=== PATIENT | male | born 1940 | race Asian ===

== ENCOUNTER 2023-12-09 05:31 | Emergency (ER) | payer OTHER, SELFPAY ==
[2023-12-09 05:33] VITALS: BP 158/75
[2023-12-09] MEDS: TYLENOL 650 MG PO (06:20)
--- NOTE | 2023-12-09 06:24 | ED.MUSCINJ ---
HPI-Injury
General
Chief Complaint: Fall
Source: patient and spouse
Exam Limitations: none
Time Seen by Provider: 12/09/23 06:03
Nursing documentation reviewed up to this point in time: agreed with
History of Present Illness-Injury
Is this injury a work related problem?: No
Is pt an associate of [facility]?: No
Initial Injury comments:
83-year-old male hypertensive diabetic slip and fall while walking looking into the sun did not see where his feet were going occurred about 48 or 72 hours ago while in [place] for a wedding
Slipped struck his right hip on the ground failed to walk on it with pain, no head trauma no head strike no neck pain no chest pain or shortness of breath
Past History
Past History
ED Past Medical History: CAD, GERD, HTN and NIDDM
ED Past Surgical History: Cardiac, Orthopedic and Other (Thyroidectomy)
Social History
Tobacco: Non-smoker
Alcohol: None
Drug: None
Personal:
Living: with family
Employment: Retired
Review of Systems
Review of Systems
All Other Systems: Not applicable
Constitutional: Denies fever or fatigue
EENT: Reports no symptoms
Respiratory: Reports no symptoms
Cardiac: Reports no symptoms
ABD/GI: Reports no symptoms
: Reports no symptoms
Musculoskeletal: Reports joint pain
Neurological: Reports no symptoms
Phy Exam
Physical Exam
Physical Exam:
Physical Exam
General: Nontoxic elderly
Neck: No tongue bite no posterior neck
Heart: s1/s2 regular rate and rhythm, no murmur. equal radial pulses.
Lungs: no acute respiratory distress. clear bilaterally
Abdomen: Nontender
Neuro: alert and oriented. no focal neurological deficits
Skin: no rash
Psychiatric: well kept. interactive and cooperative
Extremities: Right lower extremity not shortened or rotated does have pain with flexion and external rotation is contusion/bruising right upper lateral thigh
Injury Course
Orders/Labs/Results
Orders:
Orders
12/09/23 05:57
Hip, Right 2-3 Views [CR Hip - RT w/wo Pel 2-3 Vw*] Urgent
Comment:
Reason For Exam: fall
Include a pelvis x-ray?: Yes
12/09/23 06:16
Acetaminophen [Tylenol] 650 mg PO NOW STA
12/09/23 07:26
Physical Therapy Consult [Pt Eval And Treat] Urgent
Activity Level: Out of Bed-Early Mobility
MDM/Problems Addressed
Differential Diagnosis Includes:
Contusion hip fracture pelvic fracture
MDM/Problems Addressed:
Fall hip pain
Chronic conditions affecting care: DM and HTN
Acute Exacerbation and/or Progression of Chronic Illness: DM and HTN
*Radiology
Radiology exam reviewed: preliminary read by ED provider
*Pulse Oximetry
Patient hypoxic: no
*Critical Care Note
Total Time (30-74mins, 75-104mins- exclusive of procedures): Not Applicable
Update Note
Update Note:
Update, x-ray noted formal report pending drug allergies intolerances noted
Patient appears comfortable after Tylenol will ask PT to evaluate him
ED Attending Note
-
Portions of this chart may have been created with voice recognition software.� Occasional wrong word or��sound alike� substitutions may have occurred due to the inherent limitations of voice recognition software.
Discharge Plan
Departure
Patient Disposition: Home (Routine Discharge)
Date of Disposition: 12/09/23
Time of Disposition: 09:01
Patient with high blood pressure during this ER visit?: No
Condition: Good
Discharge Problem:
Contusion of hip region
Instructions: Contusion (DC), Preventing falls in adults
Prescriptions:
No Action
atorvastatin 40 mg Tablet
40 mg PO DAILY
levothyroxine 175 mcg Tablet
175 mcg PO DAILY
ascorbic acid (vitamin C) [Vitamin C] 1,000 mg Tablet
1 g PO DAILY
metoprolol tartrate 100 mg Tablet
100 mg PO BID
clopidogrel 75 mg Tablet
75 mg PO DAILY
amlodipine 10 mg Tablet
10 mg PO QPM
folic acid 1 mg Tablet
1 mg PO BID
losartan 100 mg Tablet
100 mg PO QPM
metformin 500 mg Tablet Extended Release 24 Hr
500 mg PO DAILY
iron 40 mg Capsule
65 mg PO DAILY
omega-3 fatty acids Capsule
2,000 mg PO BID
metformin 500 mg Tablet Extended Release 24hr
1,000 mg PO QPM
Januvia 100 mg Tablet
100 mg PO QPM
Ozempic 0.25 mg or 0.5 mg(2 mg/1.5 mL) Pen Injector
0.25 mg SC QWEEK
Patient Comments:
Patient has not started medication
Vitamin B-12
1 g PO QPM
nitroglycerin 0.4 mg tablet, sublingual
0.4 mg sublingual [id number] PRN (Reason: chest pain) Qty: 25 2RF
aspirin 81 mg Tablet,Chewable
81 mg PO DAILY Qty: 30 0RF
Referrals:
Hector Ivy MD [Family Provider] - Next open appointment
Hudson Smith MD [Active] - Next open appointment
Activity Restrictions/Additional Instructions:
Rest, ice, Tylenol every 4-6 hours
Use a walker
Interventions
Interventions:
*Risk Screen - Suicide Last Done: 12/09/23 05:39
*General Assessment Last Done: 12/09/23 05:40
*Neglect/Abuse Screening Last Done: 12/09/23 05:40
ED- Fall Risk Assessment Last Done: 12/09/23 05:39
*ED COVID-19 Vaccine History Last Done: 12/09/23 05:39
ED-Musculoskeletal Assessment Last Done: 12/09/23 06:56
ED- Neurological Assessment Last Done: 12/09/23 06:56
ED-Skin Assessment Last Done: 12/09/23 06:56
Discharge Date and Time
Print Language: MALAWIAN
[2023-12-09 09:25] VITALS: BP 117/68
== END 2023-12-09 09:29 | disposition home or self-care (01) ==
LOC: EMR 05:31
PROVIDERS: EMERGENCY PHYSICIAN Emergency Medicine; FAMILY PHYSICIAN Family Medicine
DX: S70.01XA Contusion of right hip, initial encounter (principal); W01.0XXA Fall on same level from slipping, tripping and stumbling without subsequent striking against object, initial encounter; I25.10 Atherosclerotic heart disease of native coronary artery without angina pectoris; K21.9 Gastro-esophageal reflux disease without esophagitis; I10 Essential (primary) hypertension; E11.9 Type 2 diabetes mellitus without complications
CPT/HCPCS: 99283; 73502

== ENCOUNTER 2024-12-09 04:35 | Inpatient (IN) | payer OTHER, SELFPAY ==
[2024-12-09] VITALS (11 sets, daily range): BP systolic 127–164; BP diastolic 64–88; PULSE 144; O2SAT 96; BMI 23.0; BMI 25.9
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
[2024-12-09 02:44] LABS: Hematocrit 35.8 % (39.0-52.0); Hemoglobin 12.7 g/dL (13.0-18.0); Mean Corp Hgb Conc. 35.5 g/dL (33.0-37.0); Mean Corpuscular Volume 82.5 fL (80.0-94.0); Platelet Count 155 10^3/uL (130-400); Red Cell Dist. Width 13.9 % (11.5-14.5)
[2024-12-09 02:51] LABS: INR 0.95; PT 12.9 Sec (11.4-14.6)
[2024-12-09 02:52] LABS: APTT 29.1 Sec (23.4-35.0)
[2024-12-09 03:11] LABS: Troponin I < 0.012 ng/ml
[2024-12-09 03:13] LABS: ALT (SGPT) 19 U/L (0-50); AST (SGOT) 30 U/L (17-59); Albumin 4.9 g/dl (3.5-5.0); Alkaline Phosphatase 65 U/L (38-126); Blood Urea Nitrogen 20 mg/dl (9-20); Calcium 9.4 mg/dl (8.4-10.2); Carbon Dioxide 19 mmol/L (22-30); Chloride 100 mmol/L (98-107); Estimated Creatinine Clearance 70 ml/min; Glucose 207 mg/dl (70-99); Potassium 5.0 mmol/L (3.5-5.1); Sodium 134 mmol/L (135-145); Total Protein 8.8 g/dl (6.3-8.2); eGFR > 60.00
[2024-12-09 03:27] LABS: Urine Character Clear (Clear)
[2024-12-09 03:39] LABS: Absolute Neutrophils -Man Diff 22.4 10^3/uL (1.4-6.5); Normal RBC Morphology Yes; Platelets Checked Yes; Total Cells Counted 100
[2024-12-09 03:47] LABS: Urine Squamous Cell >30 /LPF (Few)
--- NOTE | 2024-12-09 04:10 | HPS.HSE ---
Family Physician
-
Family Physician: Hector Ivy
Chief Complaint
-
Weakness
History of Present Illness
This is a 84-year-old male with past medical history significant for CAD status post stents x 6 with LAD stent placed about 3 years ago, biy-vvgcglp-yngenvdcu diabetes, hypothyroid, hypertension presenting to the emergency department with right
sided weakness.
Spouse reported that she began noticing right-sided foot dragging at the gathering on Sunday 3 days ago. The patient had an episode of voluminous diarrhea x 3 on Sunday night into Sunday morning. He has not had additional diarrheal episodes
since. He had 1 episode of vomiting on that Sunday morning but no water episodes of vomiting. Patient denies any headache, blurry vision, double vision lightheadedness or dizziness. Denies any fevers or chills. Denies any urinary symptoms. The
foot dragging continued throughout the day and days of 5 multiple stumbles and almost fell with his spouse trying to hold him to keep him from falling. After multiple episodes this she had to call EMS and bring him to the emergency department.
Patient is on ezetimibe due to spouse concerned about side effects of statin. It appears that several months ago his tax clerk wanted to change the ezetimibe to a different medication but is unclear what this changes possibly likely statin.
In the emergency department he was afebrile, blood pressure was 160/73 with a pulse of 86 satting 98% on room air. His UA is negative. ECG shows a normal sinus rhythm at rate of 83. CT of the head was unremarkable. CT angio shows no large vessel
occlusion dissection aneurysm or bleed.
CBC notable for a white count of 26 but otherwise unremarkable 7% bands. Electrolytes BUN and creatinine were in the normal range.
Medical History
Past Medical History
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
Past Surgical History: Reports Other (Cardiac, Orthopedic and Other (Thyroidectomy))
Social History
Unable to obtain full social history at this time due to: Dementia
Family History
Family History: Not pertinent
Allergies / Home Medications
Allergies reflects when Allergies were last updated in [employer].
Home Medications with original date entered in [employer]
Allergy/Medication List:
Allergies
Allergy/AdvReac Type Severity Reaction Status Date / Time
abciximab Allergy problems Verified 12/09/24 02:49
with blood
levels
hydralazine Allergy Unknown Verified 12/09/24 02:49
morphine Allergy OD at Verified 12/09/24 02:49
level dose
per patient
oxycodone (From Percocet) Allergy Migranes Verified 12/09/24 02:49
Home Medications
Vitamin B-12 5 g PO QPM Supplement 11/11/21
amlodipine 10 mg tablet 10 mg PO QPM Blood pressure 11/11/21
ascorbic acid (vitamin C) 1,000 mg tablet (Vitamin C) 1 g PO DAILY Supplement 11/11/21
clopidogrel 75 mg tablet 75 mg PO DAILY Blood clot prevention/tx 11/11/21
folic acid 1 mg tablet 1 mg PO BID Supplement 11/11/21
losartan 100 mg tablet 100 mg PO QPM Blood pressure 11/11/21
metformin 500 mg tablet,extended release 24 hr 500 mg PO DAILY Diabetes 11/11/21
metformin 500 mg tablet,extended release 24hr (osmotic) 1,000 mg PO QPM Diabetes 11/11/21
metoprolol tartrate 100 mg tablet 100 mg PO DAILY Blood pressure 11/11/21
nitroglycerin 0.4 mg sublingual tablet 0.4 mg sublingual [id number] PRN chest pain #25 tabs 11/11/21
aspirin 81 mg chewable tablet 81 mg PO DAILY #30 tabs 11/15/21
cholecalciferol (vitamin D3) 125 mcg (5,000 unit) tablet (Vitamin D3) 125 mcg PO DAILY 12/09/24
ezetimibe 10 mg tablet 10 mg PO QPM 12/09/24
ferrous sulfate 325 mg (65 mg iron) tablet (Iron (ferrous sulfate)) 65 mg PO DAILY 12/09/24
levothyroxine 150 mcg tablet 150 mcg PO DAILY 12/09/24
saxagliptin 5 mg tablet 5 mg PO DAILY 12/09/24
Review of Systems
-
Constitutional: Reports No Symptoms
EENT: Reports No Symptoms
Respiratory: Reports No Symptoms
Cardiac: Reports No Symptoms
Abdomen/GI: Reports No Symptoms
: Reports No Symptoms
Musculoskeletal: Reports No Symptoms
Skin: Reports No Symptoms
Neurological: Reports Weakness
Endocrine: Reports No Symptoms
Hematologic/Lymphatic: Reports No Symptoms
Psych: Reports No Symptoms
Physical Exam
Vital Signs
Vital Signs
Temp Pulse Resp BP Pulse Ox
97.9 F 86 20 159/73 98
12/09/24 02:17 12/09/24 02:30 12/09/24 02:30 12/09/24 02:19 12/09/24 02:30
Physical Exam
General: Well Developed, Well Nourished and No Apparent Distress
HEENT: NormoCephalic, Moist mucous membranes and Atraumatic
Respiratory: Clear
Cardiac: S1/S2 and Regular Rhythm; No Murmur or Rub
GI: Soft, Non Tender, Non Distended and Normal Bowel Sounds; No Organomegaly
Rectal: Deferred by Provider
Musculoskeletal: No Clubbing, No Cyanosis and No Edema
Skin: No Rash
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
Laboratory Results
-
12/09/24 02:27
12/09/24 02:27
Laboratory Results
PT 12.9 Sec (11.4-14.6) 12/09/24 02:27
INR 0.95 12/09/24 02:27
APTT 29.1 Sec (23.4-35.0) 12/09/24 02:27
Total Bilirubin 1.0 mg/dl (0.2-1.3) 12/09/24 02:27
AST 30 U/L (17-59) 12/09/24 02:27
ALT 19 U/L (0-50) 12/09/24 02:27
Alkaline Phosphatase 65 U/L (38-126) 12/09/24 02:27
Troponin I < 0.012 ng/ml 12/09/24 02:27
Data Reviewed
-
CT Scan: Report Reviewed by me
Medical Tests (Nuc Med, Echo, EKG etc): Image Personally Visualized and interpreted
Lab Data: Labs Reviewed by me
Old Records: Reviewed
Impression/Plan
-
IMPRESSION:
84-year-old male with past medical history significant for CAD status post tenting, sct-xrogjwo-itrgmuuav diabetes, hypertension, hyperlipidemia, GERD, presenting to the emergency department for with right-sided weakness starting 6 days ago and
concerning for right-sided CVA. Patient woke up in the ED was unremarkable. CT shows no evidence of an acute intracranial process. CTA shows no large vessel occlusion or dissection or stenosis. There is no bleed. Exam reveals persistent right
thumb drift, right leg drift, mild right-sided facial droop with smiling and mild speech slurring.
PLAN:
CVA -likely small CVA affecting the right side and the patient with history of CAD who is currently on aspirin Plavix and visit to me. No known history of atrial fibrillation.
-Admit to telemetry observation
-This is likely a subacute stroke, continue to control blood pressure as per patient's home regimen
-Speech therapy
-Continue dual antiplatelet therapy for now, if MRI confirms stroke, may benefit from starting a statin
-Telemetry to monitor follow-up for possible atrial fibrillation
-Neurochecks
-Neurology consult
-PT, OT, speech
Leukocytosis -reports recent a large-volume diarrhea without fevers chills abdominal pain nausea or vomiting. Hemodynamically stable and labs unremarkable. There is leukocytosis to 26 with 7% bands. No recent antibiotic use
-Suspect leukocytosis is secondary to CML
-Afebrile here, no diarrhea in the ED, monitor for now
- no signs of dehydration, check orthostatics, hold off on IV fluids for now
- repeat wbc as outpatient and f/u with Dr Tyler
DM 2
-Hold metformin
-Sliding scale insulin
-Continue glipizide
Hypertension
-Continue metoprolol and losartan
DVT prophylaxis�Lovenox subcu
CODE STATUS�full code
--- NOTE | 2024-12-09 08:54 | W.PN.HOSP.TC ---
Today's Communication/Plan
-
Follow-up MRI and TTE
Continue DAPT and ezetimibe
Check LDL and A1c
Consider statin
Switch metoprolol to carvedilol
Assessment / Plan
Assessment / Plan
#Right-sided extremity weakness and left facial droop
#Cerebrovascular disease
- Suspect ASCVD driven event within the left Jim-cerebrum/basal ganglia/thalamus with symptoms and Hx
- Concern for subacute CVA, right-sided weakness that started 6 days prior to arrival, also with facial droop
- No indication for TNK or thrombectomy due to timeframe, no indication for aggressive BP goals
- Initial CT scan without any acute findings, CTA showed carotid stenosis and bilateral M1-2 stenosis
- MRI brain without contrast was ordered though yet to be performed
- Remains on home DAPT for his history of CAD, not on statin therapy
- Neurology consulted, appreciated
Plan
- Follow-up MRI brain, TTE
- Consider statin therapy if MRI positive as well with LDL goal <70
- Continue with home DAPT and ezetimibe for now
- Monitor neurochecks and NIHSS, BP goal normotension
- Consider loop recorder if MRI consistent with embolic disease
- Recheck lipid panel and A1c
#Leukocytosis
#CML
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
- Antibiotics deferred on arrival, no obvious infectious findings at this time
- Differential without mention of basophils, would expect these to be elevated
- Will trend CBC and temperature curve off antibiotics for now
#Oropharyngeal dysphagia
- Likely related to recent suspected CVA, evaluated by SALT CUTTER today
- Recommended regular diet however nursing with concerns of aspirating thin liquids
- Video swallow exam ordered for tomorrow, S[facility] CUTTER appreciated
- Aspiration precautions
#CAD s/p PCI x 6
#Dyslipidemia
- Home regimen includes DAPT with aspirin and Plavix, metoprolol tartrate twice daily
- Not currently on statin therapy as last lipid panel with LDL near 39, is on ezetimibe
- Follow-up repeat lipid panel as above, consider starting statin
- No signs of ACS at this time
#NIDDM
- Home regimen includes metformin and saxagliptin
- Was transition to ISS with Accu-Cheks while inpatient
- Follow-up A1c as above, BG goal 140-180 here
#Iatrogenic hypothyroidism
#S/P thyroidectomy
- Home regimen includes levothyroxine 150 mcg daily
- No signs or symptoms of thyroid dysfunction at this time
#Primary hypertension
- Home regimen includes amlodipine, metoprolol tartrate, losartan
- No known history of hypertensive systemic disease, may be associated with possible CVA here
- Will transition from metoprolol to tartrate 100 mg daily to carvedilol 12.5 mg twice daily for better antihypertensive effect
- Continue with remainder of home regimen and monitor vitals
- Blood pressure goal normotension
#GERD
- No known history of Suarez's esophagus or erosive disease
- Not currently on PPI or antihistamine
#Dementia
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
- No signs of agitation, will monitor for now
Diet: Regular
Thromboprophylaxis: SQ Lovenox
CODE STATUS: Full code
Disposition: PT pending
Anticipated Discharge: > 48 hours
Subjective/Interval History
-
Date of Service: December 09, 2024
Seen and examined at the bedside. No acute events reported overnight. AFVSS this morning, SBP near 160
Finished working with physical therapy at time of my assessment, noted to have ataxic RLE.
ROS limited by his dementia though able to participate in exam
Objective Data
-
Labs:
Laboratory Results
12/09/24
02:27
WBC 26.1 H
Hgb 12.7 L
Hct 35.8 L
Plt Count 155
PT 12.9
INR 0.95
APTT 29.1
Sodium 134 L
Potassium 5.0
Chloride 100
Carbon Dioxide 19 L
BUN 20
Creatinine 0.8
Glucose 207 H
Calcium 9.4
Total Bilirubin 1.0
AST 30
ALT 19
Alkaline Phosphatase 65
Vital Signs:
Vital Signs
Temp Pulse Resp BP Pulse Ox
97.3 F 112 16 162/77 98
12/09/24 07:10 12/09/24 07:15 12/09/24 07:15 12/09/24 07:10 12/09/24 07:10
Review of Systems
-
Unable to obtain full review of systems at this time due to: Dementia
Physical Exam
-
General: Well Developed, Well Nourished and Appears Chronically Ill
HEENT: Normocephalic, Atraumatic, Moist Mucous Membranes and Anicteric
Respiratory: Clear to Auscultation and Non Labored Respirations
Cardiac: Regular Rhythm and S1/S2; Negative Murmur, Rub or Gallop
GI: Soft, Nontender, Nondistended and Normal Bowel Sounds
Musculoskeletal: No Clubbing, No Cyanosis and No Edema
Skin: Warm and Dry; Negative Rash
Neuro: Awake, Alert, Oriented and Other (Reduced strength to right sided extremities with right pronator drift, RLE ataxia; lower left facial droop with preserved eyebrow raise and upper facial signs)
Psych: Calm
Data Reviewed
-
Labs: Labs Reviewed by me, Discussed with Physician (neuro) and Discussed with Patient
[2024-12-09 09:06] LABS: Glucose - Point of Care 254 mg/dl (70-99)
--- NOTE | 2024-12-09 09:49 | PTCARENOTE ---
Received pt from ER via stretcher, accompanied by ER staff. Pt awake and alert, oriented to self/birthdate/'hospital' only; occ word slurring. DOWD; Rt side weak; has Rt facial droop. Pt able to stand with assist x2 to transfer to bed;
weak/unsteady; denies dizziness. NIHSS 9- pt has no vision in Lt eye d/t prior injury; h/o dementia. Cooperative but forgetful. VSS. Placed on telemetry:sinus tachy 110's. On room air- pulse ox 98%, no SOB noted. Abd soft, rounded, pt with (+)
coughing with swallow eval; speech notified to see pt. Incont urine, pt instructed to use urinal. Afebrile; skin W/D/I. Pt restless/confused; pulling off telemetry; attempting to climb OOB; to be made 1:1 for safety. Oriented t [address]. Will
continue to monitor.
[2024-12-09] MEDS: FEOSOL 325 MG PO (10:29)
[2024-12-09] MEDS: LOPRESSOR 100 MG PO (10:30)
[2024-12-09] MEDS: SYNTHROID 150 MCG PO (10:30)
[2024-12-09] MEDS: PLAVIX 75 MG PO (10:30)
[2024-12-09] MEDS: LOW STRENGTH ASPIRIN 81 MG PO (10:30)
[2024-12-09] MEDS: VITAMIN D3 (cholecalciferol) 125 MCG PO (10:30)
[2024-12-09] MEDS: VITAMIN C 1000 MG PO (10:30)
[2024-12-09] MEDS: FOLVITE 1 MG PO ×2 (10:30→20:16)
[2024-12-09] MEDS: NOVOLOG FLEXPEN-LOW RESISTANCE 3 UNITS SC ×2 (10:31→17:08)
[2024-12-09] MEDS: MIRALAX PO (10:31)
--- NOTE | 2024-12-09 10:33 | PTOTSP ---
Speech Therapy Evaluation:
Pt presenting w/ TIA/CVA symptoms and PMH of dementia. Bedside swallow evaluation completed due to failed nursing swallow screening upon admission to unit. Coughing observed w/ single and sequential sips from straw. No other overt s/sx of aspiration
observed w/ single cup-sips of thins, puree, or regular solids during P.O. trials. ST to follow-up due to risk factors for dysphagia w/ PMH (dementia, GERD), acute TIA/CVA symptoms, signs of aspiration.
Quick Aphasia Battery (QAB) administered to assess language domains. Pt's score indicates moderate aphasia, with primary deficits in word finding, sentence comprehension, and oral reading. Unsure of pt's baseline language. ST recommended to F/U at
acute setting and next level, of care.
Recommendations:
1. Regulars, Single Cup-Sip Thins
2. Medications crushed/whole w/ puree
3. Partial assistance/full supervision w/ meals
4. Strategies: Single sips/small bites, slow rate, limit distractions, reflux precautions
5. ST to F/U to observe diet level tolerance, determine need for instrumental swallow study, and further treat/assess cognitive-linguistic communication deficits.
6. ST at next-level of care given moderate aphasia characterized by deficits in word finding, reading, and auditory comprehension and PMH of dementia.
[2024-12-09 12:59] LABS: Glucose - Point of Care 234 mg/dl (70-99)
[2024-12-09] MEDS: NOVOLOG FLEXPEN-LOW RESISTANCE 2 UNITS SC (13:39)
[2024-12-09] MEDS: HALDOL 2.5 MG IM (14:09)
--- NOTE | 2024-12-09 14:43 | PTCARENOTE ---
Pt awake; oriented to self only; angry/aggressive/cursing/attempting to kick/hit staff; becomes more agitated when re-oriented. Attempting to climb OOB repeatedly; stating 'Get me out of here!'. Dr. Madison notified. Haldol 2.5 mg IM given as
ordered. Will monitor effectiveness. 1:1 observation /fall prec maintained.
--- NOTE | 2024-12-09 15:28 | PTCARENOTE ---
Pt currently awake and alert, oriented to self only; calmer, but becomes angry/agitated with repeated questioning/re-orientation. DOWD. VSS. Telemetry:Sinus tachy. On room air- pulse ox 97%, no SOB noted. Abd large, soft, josephine only small amts PO;
still has coughing with liquid intake. Pt have VSE when cooperative. Occ voids in urinal/incont. Resting in bed at present; 1:1 obs maintained. Will continue to monitor.
--- NOTE | 2024-12-09 15:59 | CM ---
Alert awake oriented patient who lives with his Tiffany who lives in a 3 story home.He is assisted in all activities of daily living.He was offered VN he declined need.He uses a walker.
No VN hx / No SNF history
Pharmacy [facility]
PCP DR Ivy
PLAN Will need PT OT for dc plan
[2024-12-09 16:40] LABS: Glucose - Point of Care 277 mg/dl (70-99)
[2024-12-09] MEDS: LOVENOX 40 MG SC (17:09)
[2024-12-09] MEDS: COZAAR 100 MG PO (17:11)
[2024-12-09] MEDS: NORVASC 10 MG PO (17:12)
[2024-12-09] MEDS: ZETIA 10 MG PO (17:12)
--- NOTE | 2024-12-09 17:47 | CON.NEURO4 ---
Consultation - Neurology 4
-
CONSULTING PHYSICIAN: Bartolome Welsh MD
REFERRING PHYSICIAN: Dev Madison MD
DICTATED BY: Bartolome Welsh MD
DATE/TIME OF REQUEST: 12/09/2024
DATE/TIME OF CONSULTATION: 12/09/2024
Reason for Consultation: Right-sided weakness
Assessment and Plan:
The patient is an 84 years old male with a past medical history of CAD, ipk-rdqqplp-vgkvahtty diabetes, hypothyroidism and hypertension who presented to the ER with right-sided weakness. The NIH stroke scale is equal to 4. CT of the head was
unremarkable and CTA of head and neck showed no large vessel occlusion dissection or aneurysm, however it showed severe narrowing of the right P2 segment.
The plan is to keep the patient on stroke pathway. The patient appears to have a left hemispheric stroke.
Echocardiogram.
MRI of the brain without contrast.
Aspirin 81 mg daily.
Plavix 75 mg daily.
Atorvastatin 40 mg daily.
History of Present Illness:
The patient is an 84 years old male with a past medical history of CAD, ual-crgjjna-krctkjbic diabetes, hypothyroidism and hypertension who presented to the ER with right-sided weakness. The patient began to have right leg weakness about [address] of the head was unremarkable and CTA of head and neck showed no large vessel occlusion dissection or aneurysm, however it showed severe narrowing of the right P2 segment.
Past Medical History: CAD, qbt-jmzcxbi-asyeoknxq diabetes, hypothyroidism and hypertension
Review of Systems:
The 10 point review of systems were negative aside from as given the above history of present illness.
Neurologic Examination:
The patient is alert and oriented x 3.
The patient has mild dysarthria.
The cranial nerves II to XII are grossly intact aside from right-sided facial droop.
The strength is grossly 4/5 in the right upper and lower extremities while the strength is grossly 5/5 in the left upper and lower extremities.
The sensations are grossly intact bilaterally
There was no limb ataxia seen.
The NIH stroke scale is equal to 4.
Medications
-
Active Medications
Generic Name Dose Route Start Last Admin
Trade Name Freq PRN Reason Stop Dose Admin
Acetaminophen 650 mg 12/09/24 07:41
Acetaminophen 650 Mg Rectal Suppository RECTAL 01/06/25 07:40
Q4HPRN PRN
CHILDRESS, mild pain, or temp >100.4F
Acetaminophen 650 mg 12/09/24 07:41
Acetaminophen 325 Mg Tablet PO 01/06/25 07:40
Q4HPRN PRN
CHILDRESS, mild pain, or temp >100.4F
Amlodipine Besylate 10 mg 12/09/24 18:00 12/09/24 17:12
Amlodipine 10 Mg Tablet PO 01/06/25 17:59 10 mg
QPM BART Administration
Ascorbic Acid 1,000 mg 12/09/24 08:00 12/09/24 10:30
Ascorbic Acid 500 Mg Tablet PO 01/06/25 07:59 1,000 mg
DAILY BART Administration
Aspirin 81 mg 12/09/24 08:00 12/09/24 10:30
Aspirin 81 Mg Chewable Tablet PO 01/06/25 07:59 81 mg
DAILY BART Administration
Carvedilol 12.5 mg 12/09/24 20:00
Carvedilol 12.5 Mg Tablet PO 01/06/25 19:59
BID BART
Cholecalciferol 125 mcg 12/09/24 08:00 12/09/24 10:30
Cholecalciferol (Vitamin D3) 125 Mcg Tablet (5,000 Units) PO 01/06/25 07:59 125 mcg
DAILY BART Administration
Clopidogrel Bisulfate 75 mg 12/09/24 08:00 12/09/24 10:30
Clopidogrel 75 Mg Tablet PO 01/06/25 07:59 75 mg
DAILY BART Administration
Dextrose 12.5 grams 12/09/24 07:41
Dextrose 50% (0.5 Grams/Ml) 50 Ml Syringe IV 01/06/25 07:40
[id number] PRN
hypoglycemia
Protocol
Ezetimibe 10 mg 12/09/24 18:00 12/09/24 17:12
Ezetimibe (Zetia) 10 Mg Tablet PO 01/06/25 17:59 10 mg
QPM BART Administration
Enoxaparin Sodium 40 mg 12/09/24 18:00 12/09/24 17:09
Enoxaparin Sodium 40 Mg/0.4 Ml Syringe SC 01/06/25 17:59 40 mg
QPM BART Administration
Ferrous Sulfate 325 mg 12/09/24 08:00 12/09/24 10:29
Ferrous Sulfate 325 Mg Tablet PO 01/06/25 07:59 325 mg
DAILY BART Administration
Folic Acid 1 mg 12/09/24 08:00 12/09/24 10:30
Folic Acid 1 Mg Tablet PO 01/06/25 07:59 1 mg
BID BART Administration
Glucagon 1 mg 12/09/24 07:41
Glucagon 1 Mg Vial IM 01/06/25 07:40
PRN PRN
hypoglycemia
Protocol
Haloperidol Lactate 2.5 mg 12/09/24 14:00 12/09/24 14:09
Haloperidol 5 Mg/Ml 1 Ml Vial IM 01/06/25 13:59 2.5 mg
Q4HPRN PRN Administration
agitation/aggression
Insulin Aspart 0 units 12/09/24 07:41 12/09/24 17:08
Insulin Aspart Low Resistance 300 Units/3 Ml Pen.Injctr SC 01/06/25 07:40 3 units
AC BART Administration
Protocol
Levothyroxine Sodium 150 mcg 12/09/24 08:00 12/09/24 10:30
Levothyroxine 150 Mcg Tablet PO 01/06/25 07:59 150 mcg
DAILY@0600 BART Administration
Losartan Potassium 100 mg 12/09/24 18:00 12/09/24 17:11
Losartan 100 Mg Tablet PO 01/06/25 17:59 100 mg
QPM BART Administration
Polyethylene Glycol 17 grams 12/09/24 08:00 12/09/24 10:31
Polyethylene Glycol Powder 17 Grams Packet PO 01/06/25 07:59 Not Given
DAILY BART
Quetiapine Fumarate 25 mg 12/09/24 13:44
Quetiapine 25 Mg Tablet PO 01/06/25 13:43
BIDPRN PRN
agitation
Sodium Chloride 0 flush 12/09/24 08:00
Sodium Chloride 0.9% (Flush) Syringe IV 01/06/25 07:59
PER PROTOCOL BART
Home Medications
�Medication �Instructions �Recorded
Vitamin B-12 5 g PO QPM Supplement 11/11/21
amlodipine 10 mg tablet 10 mg PO QPM Blood pressure 11/11/21
ascorbic acid (vitamin C) 1,000 mg 1 g PO DAILY Supplement 11/11/21
tablet (Vitamin C)
clopidogrel 75 mg tablet 75 mg PO DAILY Blood clot 11/11/21
prevention/tx
folic acid 1 mg tablet 1 mg PO BID Supplement 11/11/21
losartan 100 mg tablet 100 mg PO QPM Blood pressure 11/11/21
metformin 500 mg tablet,extended 500 mg PO DAILY Diabetes 11/11/21
release 24 hr
metformin 500 mg tablet,extended 1,000 mg PO QPM Diabetes 11/11/21
release 24hr (osmotic)
metoprolol tartrate 100 mg tablet 100 mg PO DAILY Blood pressure 11/11/21
nitroglycerin 0.4 mg sublingual 0.4 mg sublingual [id number] PRN 11/11/21
tablet chest pain #25 tabs
aspirin 81 mg chewable tablet 81 mg PO DAILY #30 tabs 11/15/21
cholecalciferol (vitamin D3) 125 125 mcg PO DAILY 12/09/24
mcg (5,000 unit) tablet (Vitamin
D3)
ezetimibe 10 mg tablet 10 mg PO QPM 12/09/24
ferrous sulfate 325 mg (65 mg 65 mg PO DAILY 12/09/24
iron) tablet (Iron (ferrous
sulfate))
levothyroxine 150 mcg tablet 150 mcg PO DAILY 12/09/24
saxagliptin 5 mg tablet 5 mg PO DAILY 12/09/24
Vital Signs and Labs
-
Vital Signs and Labs:
Vital Signs
Temp Pulse Resp BP Pulse Ox
36.7 C 118 18 146/88 97
12/09/24 15:27 12/09/24 17:12 12/09/24 15:27 12/09/24 17:12 12/09/24 15:28
Lab Results
12/09/24 02:27
12/09/24 02:27
PT 12.9 Sec (11.4-14.6) 12/09/24 02:27
INR 0.95 12/09/24 02:27
APTT 29.1 Sec (23.4-35.0) 12/09/24 02:27
Sodium 134 mmol/L (135-145) L 12/09/24 02:27
Potassium 5.0 mmol/L (3.5-5.1) 12/09/24 02:27
BUN 20 mg/dl (9-20) 12/09/24 02:27
Glucose 207 mg/dl (70-99) H 12/09/24 02:27
Calcium 9.4 mg/dl (8.4-10.2) 12/09/24 02:27
--- NOTE | 2024-12-09 17:57 | PTCARENOTE ---
Pt's telemetry showing sinus tachy to 130's; pt without c/o. Dr. Madison notified; will continue to monitor.
[2024-12-09] MEDS: COREG 12.5 MG PO (20:15)
[2024-12-09 21:16] LABS: Glucose - Point of Care 231 mg/dl (70-99)
[2024-12-10 03:24] VITALS: BP 154/91
[2024-12-10] MEDS: SYNTHROID 150 MCG PO (05:39)
[2024-12-10 07:17] VITALS: BP 147/77
[2024-12-10 07:49] LABS: Blood Urea Nitrogen 17 mg/dl (9-20); Calcium 8.9 mg/dl (8.4-10.2); Carbon Dioxide 23 mmol/L (22-30); Chloride 102 mmol/L (98-107); Estimated Creatinine Clearance 59 ml/min; Glucose 188 mg/dl (70-99); HDL Cholesterol 35 mg/dl; LDL Cholesterol, Calculated 68 mg/dl; Magnesium 1.6 mg/dl (1.6-2.3); Potassium 3.8 mmol/L (3.5-5.1); Sodium 136 mmol/L (135-145); Very Low Density Lipoprotein 23 mg/dl (0-30); eGFR > 60.00
[2024-12-10 07:55] LABS: Glucose - Point of Care 202 mg/dl (70-99)
[2024-12-10 08:22] LABS: VerifyNow Aspirin 404 ARU
[2024-12-10 08:32] LABS: Glycohemoglobin (HgbA1c) 8.7 % (4.0-5.6)
--- NOTE | 2024-12-10 08:48 | W.PN.HOSP.TC ---
Today's Communication/Plan
-
Strict n.p.o. for now
Maintenance IV fluid
Serial speech eval (avoid Haldol prior to assessments)
Resume antiplatelet and antilipid therapy when able to tolerate oral agents
Continue to attempt optimization of blood glucose and HTN
Assessment / Plan
Assessment / Plan
#Right-sided extremity weakness and left facial droop
#Cerebrovascular disease
- Suspect ASCVD driven event within the left Jim-cerebrum/basal ganglia/thalamus with symptoms and Hx
- Concern for subacute CVA, right-sided weakness that started 6 days prior to arrival, also with facial droop
- No indication for TNK or thrombectomy due to timeframe, no indication for aggressive BP goals
- Initial CT scan without any acute findings, CTA showed carotid stenosis and bilateral M1-2 stenosis
- MRI brain without contrast was ordered though yet to be performed
- Remains on home DAPT for his history of CAD, not on statin therapy
- Neurology consulted, appreciated
Plan
- Follow-up MRI brain if his mental status permits testing
- Start high intensity statin with LDL goal <55, continue ezetimibe
- Continue with home aspirin and Plavix for DAPT
- BP goal normotension, blood glucose control
- Monitor neurochecks and NIHSS
- Monitor tele, consider loop recorder
#Oropharyngeal dysphagia
#Aspiration
- Likely related to recent suspected CVA, evaluated by CLIENT CARE CONSULTANT today
- Recommended regular diet however nursing with concerns of aspirating thin liquids
- VSE today with aspiration to all consistencies, possibly affected by Haldol he has received
- Start strict n.p.o. diet, maintenance IV fluids
- Aspiration precautions, CLIENT CARE CONSULTANT appreciated
- Will avoid Haldol prior to next speech
#Leukocytosis
#CML
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
- Antibiotics deferred on arrival, no obvious infectious findings at this time
- Differential without mention of basophils, would expect these to be elevated
- Will trend CBC and temperature curve off antibiotics for now
#CAD s/p PCI x 6
#Dyslipidemia
- Home regimen includes DAPT with aspirin and Plavix, metoprolol tartrate twice daily
- Not currently on statin therapy as last lipid panel with LDL near 39, is on ezetimibe
- Follow-up repeat lipid panel as above, consider starting statin
- No signs of ACS at this time
#NIDDM
- A1c 8.7%; no known microvascular disease though likely associated with PAD
- Home regimen includes metformin and saxagliptin; will increase metformin to 1 g twice daily at discharge
- Was transition to ISS with Accu-Cheks while inpatient
- Follow-up A1c as above, BG goal 140-180 here
#Iatrogenic hypothyroidism
#S/P thyroidectomy
- Home regimen includes levothyroxine 150 mcg daily
- No signs or symptoms of thyroid dysfunction at this time
#Primary hypertension
- Home regimen includes amlodipine, metoprolol tartrate, losartan
- No known history of hypertensive systemic disease, may be associated with possible CVA here
- Will transition from metoprolol to tartrate 100 mg daily to carvedilol 12.5 mg twice daily for better antihypertensive effect
- Continue with remainder of home regimen and monitor vitals
- Blood pressure goal normotension
#GERD
- No known history of Suarez's esophagus or erosive disease
- Not currently on PPI or antihistamine
#Dementia
#Behavioral disturbances
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
- Developed agitation for which as needed IM Haldol was ordered
- Continue to monitor, proceed with delirium precautions
- Avoid benzodiazepines for delirium
Diet: Regular
Thromboprophylaxis: SQ Lovenox
CODE STATUS: Full code
Disposition: SNF when medically stable
Anticipated Discharge: 24 - 48 hours
Subjective/Interval History
-
Date of Service: December 10, 2024
Was seen and examined at the bedside. Overnight became agitated and required Haldol ordered. AFVSS this morning, blood pressure and heart rate improved
Video swallow study done today with significant aspiration of all consistencies, recommended n.p.o. status by speech and swallow team
ROS limited by his dementia
Objective Data
-
Labs:
Laboratory Results
12/10/24
06:38
Sodium 136
Potassium 3.8
Chloride 102
Carbon Dioxide 23
BUN 17
Creatinine 0.8
Glucose 188 H
Calcium 8.9
Vital Signs:
Vital Signs
Temp Pulse Resp BP Pulse Ox
97.7 F 82 16 147/77 98
12/10/24 07:17 12/10/24 07:17 12/10/24 07:17 12/10/24 07:17 12/10/24 07:17
I&O
12/09/24 12/10/24 12/11/24
06:59 06:59 06:59
Intake Total 220 / 220
Balance 220 / 220
Review of Systems
-
Unable to obtain full review of systems at this time due to: Dementia
Physical Exam
-
General: Well Developed, Well Nourished and No Apparent Distress
HEENT: Normocephalic, Atraumatic, Moist Mucous Membranes and Anicteric
Respiratory: Clear to Auscultation and Non Labored Respirations; Negative Accessory Resp Muscle Use
Cardiac: Regular Rhythm and S1/S2; Negative Murmur, Rub or Gallop
GI: Soft, Nontender, Nondistended and Normal Bowel Sounds
Musculoskeletal: No Clubbing, No Cyanosis and No Edema
Skin: Warm and Dry; Negative Rash
Neuro: Awake, Alert, Oriented, Central Nerve's Intact and Other (Reduced MMS 2 right sided extremities, improved left facial droop)
Psych: Calm
Data Reviewed
-
Labs: Labs Reviewed by me and Discussed with Nurse
[2024-12-10] MEDS: PLAVIX 75 MG PO (08:59)
[2024-12-10] MEDS: FOLVITE 1 MG PO (08:59)
[2024-12-10] MEDS: COREG 12.5 MG PO (08:59)
[2024-12-10] MEDS: VITAMIN C 1000 MG PO (08:59)
[2024-12-10] MEDS: VITAMIN D3 (cholecalciferol) 125 MCG PO (08:59)
[2024-12-10] MEDS: FEOSOL 325 MG PO (08:59)
[2024-12-10] MEDS: LOW STRENGTH ASPIRIN 81 MG PO (08:59)
[2024-12-10] MEDS: MIRALAX 17 GRAMS PO (09:00)
[2024-12-10] MEDS: NOVOLOG FLEXPEN-LOW RESISTANCE 2 UNITS SC ×2 (09:00→12:44)
[2024-12-10] MEDS: 0.45%NACL 1000 IV (11:12)
[2024-12-10 11:33] VITALS: BP 130/67
--- NOTE | 2024-12-10 12:23 | PTOTSP ---
Videofluoroscopic swallow study
Patient presents with at least moderate oral and severe pharyngeal dysphagia for consistencies assessed. Significant change in swallowing suspected from initial evaluation 12/09/2024. Medical team notified. See patient care note for details.
Recommend:
1. NPO - consider temporary non-oral means of nutrition/hydration
2. Medications via non-oral means
3. Oral care 3x daily
4. Repeat instrumental swallow testing at discretion of treating CHIEF NUCLEAR MEDICINE TECHNOLOGIST, when mentation improved.
[2024-12-10 12:36] LABS: Glucose - Point of Care 216 mg/dl (70-99)
[2024-12-10 13:22] LABS: Ferritin 115.0 ng/ml (17.9-464.0)
[2024-12-10 13:37] LABS: Vitamin B12 669 pg/ml (239-931)
[2024-12-10 14:04] LABS: Folate > 20.0 ng/ml (2.76-20)
--- NOTE | 2024-12-10 15:36 | W.PN.NEURO.1 ---
Today's Communication / Plan
-
Aspirin 81 mg daily.
Plavix 75 mg daily.
Atorvastatin 40 mg daily.
The patient appeared to have more speech difficulty and right-sided weakness since yesterday. The patient has severe aphasia and right-sided facial droop, also the strength is 1/5 in the RUE and 2/5 in the RLE. The strength is 5/5 in the LUE and
LLE.
CT head was repeated today and the findings are suspicious for a developing area of acute or subacute ischemia in the left periventricular swan radiata/superior margin of the left basal ganglia.
MRI brain is pending.
Subjective/Objective
Subjective Data
Date of Service: December 10, 2024
The patient is an 84 years old male with a past medical history of CAD, qyj-scyieiv-ijkmneume diabetes, hypothyroidism and hypertension who presented to the ER with right-sided weakness. The NIH stroke scale is equal to 4. CT of the head was
unremarkable and CTA of head and neck showed no large vessel occlusion dissection or aneurysm, however it showed severe narrowing of the right P2 segment.
The plan is to keep the patient on stroke pathway. The patient appears to have a left hemispheric stroke.
Echocardiogram: Ejection fraction is 55 to 60%. Indexed left atrial volume is within normal range (15-34 ml/m2).
Aspirin 81 mg daily.
Plavix 75 mg daily.
Atorvastatin 40 mg daily.
The patient appeared to have more speech difficulty and right-sided weakness since yesterday. The patient has severe aphasia and right-sided facial droop, also the strength is 1/5 in the RUE and 2/5 in the [address]LE[address]
CT head was repeated today and the findings are suspicious for a developing area of acute or subacute ischemia in the left periventricular swan radiata/superior margin of the left basal ganglia.
MRI brain is pending.
Objective Data
Vital Signs
Temp Pulse Resp BP Pulse Ox
36.6 C 72 16 130/67 100
12/10/24 11:33 12/10/24 11:33 12/10/24 11:33 12/10/24 11:33 12/10/24 11:33
Lab Results
12/09/24 02:27
12/10/24 06:38
PT 12.9 Sec (11.4-14.6) 12/09/24 02:27
INR 0.95 12/09/24 02:27
APTT 29.1 Sec (23.4-35.0) 12/09/24 02:27
Sodium 136 mmol/L (135-145) 12/10/24 06:38
Potassium 3.8 mmol/L (3.5-5.1) 12/10/24 06:38
BUN 17 mg/dl (9-20) 12/10/24 06:38
Glucose 188 mg/dl (70-99) H 12/10/24 06:38
Calcium 8.9 mg/dl (8.4-10.2) 12/10/24 06:38
LDL Cholesterol, Calc 68 mg/dl 12/10/24 06:38
Vitamin B12 669 pg/ml (239-931) 12/10/24 06:38
Patient Allergies
abciximab Allergy (Verified 12/09/24 02:49)
problems with blood levels
hydralazine Allergy (Verified 12/09/24 02:49)
Unknown
morphine Allergy (Verified 12/09/24 02:49)
OD at level dose per patient
oxycodone (From Percocet) Allergy (Verified 12/09/24 02:49)
Migranes
lorazepam (From Ativan) Adverse Reaction (Severe, Verified 12/09/24 15:17)
Unknown
Medications
-
Active Medications
Generic Name Dose Route Start Last Admin
Trade Name Freq PRN Reason Stop Dose Admin
Acetaminophen 650 mg 12/09/24 07:41
Acetaminophen 650 Mg Rectal Suppository RECTAL 01/06/25 07:40
Q4HPRN PRN
CHILDRESS, mild pain, or temp >100.4F
Acetaminophen 650 mg 12/09/24 07:41
Acetaminophen 325 Mg Tablet PO 01/06/25 07:40
Q4HPRN PRN
CHILDRESS, mild pain, or temp >100.4F
Amlodipine Besylate 10 mg 12/09/24 18:00 12/09/24 17:12
Amlodipine 10 Mg Tablet PO 01/06/25 17:59 10 mg
QPM BART Administration
Ascorbic Acid 1,000 mg 12/09/24 08:00 12/10/24 08:59
Ascorbic Acid 500 Mg Tablet PO 01/06/25 07:59 1,000 mg
DAILY BART Administration
Aspirin 81 mg 12/09/24 08:00 12/10/24 08:59
Aspirin 81 Mg Chewable Tablet PO 01/06/25 07:59 81 mg
DAILY BART Administration
Atorvastatin Calcium 40 mg 12/10/24 18:00
Atorvastatin (Lipitor) 40 Mg Tablet PO 01/07/25 17:59
QPM BART
Carvedilol 12.5 mg 12/09/24 20:00 12/10/24 08:59
Carvedilol 12.5 Mg Tablet PO 01/06/25 19:59 12.5 mg
BID BART Administration
Cholecalciferol 125 mcg 12/09/24 08:00 12/10/24 08:59
Cholecalciferol (Vitamin D3) 125 Mcg Tablet (5,000 Units) PO 01/06/25 07:59 125 mcg
DAILY BART Administration
Clopidogrel Bisulfate 75 mg 12/09/24 08:00 12/10/24 08:59
Clopidogrel 75 Mg Tablet PO 01/06/25 07:59 75 mg
DAILY BART Administration
Dextrose 12.5 grams 12/09/24 07:41
Dextrose 50% (0.5 Grams/Ml) 50 Ml Syringe IV 01/06/25 07:40
[id number] PRN
hypoglycemia
Protocol
Ezetimibe 10 mg 12/09/24 18:00 12/09/24 17:12
Ezetimibe (Zetia) 10 Mg Tablet PO 01/06/25 17:59 10 mg
QPM BART Administration
Enoxaparin Sodium 40 mg 12/09/24 18:00 12/09/24 17:09
Enoxaparin Sodium 40 Mg/0.4 Ml Syringe SC 01/06/25 17:59 40 mg
QPM BART Administration
Ferrous Sulfate 325 mg 12/09/24 08:00 12/10/24 08:59
Ferrous Sulfate 325 Mg Tablet PO 01/06/25 07:59 325 mg
DAILY BART Administration
Folic Acid 1 mg 12/09/24 08:00 12/10/24 08:59
Folic Acid 1 Mg Tablet PO 01/06/25 07:59 1 mg
BID BART Administration
Glucagon 1 mg 12/09/24 07:41
Glucagon 1 Mg Vial IM 01/06/25 07:40
PRN PRN
hypoglycemia
Protocol
Haloperidol Lactate 1 mg 12/10/24 11:01
Haloperidol 5 Mg/Ml 1 Ml Vial IM 01/06/25 13:59
Q4HPRN PRN
agitation/aggression
Sodium Chloride 1,000 mls @ 75 mls/hr 12/10/24 11:00 12/10/24 11:12
0.45%Nacl IV 1,000 mls
.[id number] BART Administration
Insulin Aspart 0 units 12/09/24 07:41 12/10/24 12:44
Insulin Aspart Low Resistance 300 Units/3 Ml Pen.Injctr SC 01/06/25 07:40 2 units
AC BART Administration
Protocol
Levothyroxine Sodium 150 mcg 12/09/24 08:00 12/10/24 05:39
Levothyroxine 150 Mcg Tablet PO 01/06/25 07:59 150 mcg
DAILY@0600 BART Administration
Losartan Potassium 100 mg 12/09/24 18:00 12/09/24 17:11
Losartan 100 Mg Tablet PO 01/06/25 17:59 100 mg
QPM BART Administration
Polyethylene Glycol 17 grams 12/09/24 08:00 12/10/24 09:00
Polyethylene Glycol Powder 17 Grams Packet PO 01/06/25 07:59 17 grams
DAILY BART Administration
Quetiapine Fumarate 25 mg 12/09/24 13:44
Quetiapine 25 Mg Tablet PO 01/06/25 13:43
BIDPRN PRN
agitation
Sodium Chloride 0 flush 12/09/24 08:00
Sodium Chloride 0.9% (Flush) Syringe IV 01/06/25 07:59
PER PROTOCOL BART
Home Medications
�Medication �Instructions �Recorded
Vitamin B-12 5 g PO QPM Supplement 11/11/21
amlodipine 10 mg tablet 10 mg PO QPM Blood pressure 11/11/21
ascorbic acid (vitamin C) 1,000 mg 1 g PO DAILY Supplement 11/11/21
tablet (Vitamin C)
clopidogrel 75 mg tablet 75 mg PO DAILY Blood clot 11/11/21
prevention/tx
folic acid 1 mg tablet 1 mg PO BID Supplement 11/11/21
losartan 100 mg tablet 100 mg PO QPM Blood pressure 11/11/21
metformin 500 mg tablet,extended 500 mg PO DAILY Diabetes 11/11/21
release 24 hr
metformin 500 mg tablet,extended 1,000 mg PO QPM Diabetes 11/11/21
release 24hr (osmotic)
metoprolol tartrate 100 mg tablet 100 mg PO DAILY Blood pressure 11/11/21
nitroglycerin 0.4 mg sublingual 0.4 mg sublingual [id number] PRN 11/11/21
tablet chest pain #25 tabs
aspirin 81 mg chewable tablet 81 mg PO DAILY #30 tabs 11/15/21
cholecalciferol (vitamin D3) 125 125 mcg PO DAILY Supplement 12/09/24
mcg (5,000 unit) tablet (Vitamin
D3)
ezetimibe 10 mg tablet 10 mg PO QPM High Cholesterol 12/09/24
ferrous sulfate 325 mg (65 mg 65 mg PO DAILY Supplement 12/09/24
iron) tablet (Iron (ferrous
sulfate))
levothyroxine 150 mcg tablet 150 mcg PO DAILY Thyroid 12/09/24
saxagliptin 5 mg tablet 5 mg PO DAILY Diabetes 12/09/24
Vital Signs and Labs
-
Vital Signs and Labs:
Vital Signs
Temp Pulse Resp BP Pulse Ox
36.6 C 72 16 130/67 100
12/10/24 11:33 12/10/24 11:33 12/10/24 11:33 12/10/24 11:33 12/10/24 11:33
Lab Results
12/09/24 02:27
12/10/24 06:38
PT 12.9 Sec (11.4-14.6) 12/09/24 02:27
INR 0.95 12/09/24 02:27
APTT 29.1 Sec (23.4-35.0) 12/09/24 02:27
Sodium 136 mmol/L (135-145) 12/10/24 06:38
Potassium 3.8 mmol/L (3.5-5.1) 12/10/24 06:38
BUN 17 mg/dl (9-20) 12/10/24 06:38
Glucose 188 mg/dl (70-99) H 12/10/24 06:38
Calcium 8.9 mg/dl (8.4-10.2) 12/10/24 06:38
LDL Cholesterol, Calc 68 mg/dl 12/10/24 06:38
Vitamin B12 669 pg/ml (239-931) 12/10/24 06:38
[2024-12-10 15:53] VITALS: BP 130/64
[2024-12-10] MEDS: COZAAR PO (16:25)
[2024-12-10] MEDS: NORVASC PO (16:26)
[2024-12-10] MEDS: ZETIA PO (16:26)
[2024-12-10 16:59] LABS: Glucose - Point of Care 198 mg/dl (70-99)
[2024-12-10] MEDS: LOVENOX 40 MG SC (17:06)
[2024-12-10] MEDS: NOVOLOG FLEXPEN-LOW RESISTANCE SC (17:08)
[2024-12-10] MEDS: FOLVITE PO (19:26)
[2024-12-10] MEDS: COREG PO (19:26)
[2024-12-10 19:43] VITALS: BP 139/69
[2024-12-10] MEDS: SYNTHROID PO (20:43)
[2024-12-10 21:53] LABS: Glucose - Point of Care 187 mg/dl (70-99)
[2024-12-11] VITALS (8 sets, daily range): BP systolic 129–163; BP diastolic 63–83; PULSE 85; O2SAT 98
[2024-12-11] MEDS: 0.45%NACL 1000 IV ×2 (02:34→13:45)
[2024-12-11 07:15] LABS: Glucose - Point of Care 181 mg/dl (70-99)
[2024-12-11 08:50] LABS: Hematocrit 35.4 % (39.0-52.0); Hemoglobin 12.6 g/dL (13.0-18.0); Mean Corp Hgb Conc. 35.6 g/dL (33.0-37.0); Mean Corpuscular Volume 83.5 fL (80.0-94.0); Platelet Count 159 10^3/uL (130-400); Red Cell Dist. Width 14.0 % (11.5-14.5)
[2024-12-11 08:51] LABS: Blood Urea Nitrogen 16 mg/dl (9-20); Calcium 8.7 mg/dl (8.4-10.2); Carbon Dioxide 16 mmol/L (22-30); Chloride 104 mmol/L (98-107); Estimated Creatinine Clearance 78 ml/min; Glucose 176 mg/dl (70-99); Potassium 4.5 mmol/L (3.5-5.1); Sodium 136 mmol/L (135-145); eGFR > 60.00
[2024-12-11 09:49] LABS: Absolute Neutrophils -Man Diff 16.9 10^3/uL (1.4-6.5); Normal RBC Morphology Yes; Platelets Checked Yes; Total Cells Counted 100
--- NOTE | 2024-12-11 10:17 | W.PN.HOSP.TC ---
Today's Communication/Plan
-
Repeat speech eval today
Resume aspirin, Plavix, statin when able to tolerate PO
Continue with carvedilol in place of metoprolol when able to tolerate PO
Follow-up MRI
NPO for now w/ IVF
Assessment / Plan
Assessment / Plan
#Right-sided extremity weakness and left facial droop
#Cerebrovascular disease
- Suspect ASCVD driven event within the left Jim-cerebrum/basal ganglia/thalamus with symptoms and Hx
- Concern for subacute CVA, right-sided weakness that started 6 days prior to arrival, also with facial droop
- No indication for TNK or thrombectomy due to timeframe, no indication for aggressive BP goals
- Initial CT scan without any acute findings, CTA showed carotid stenosis and bilateral M1-2 stenosis
- Repeat CT head showed signs of left basal ganglia and swan radiata infarct, deficits worsened
- MRI brain without contrast was ordered though yet to be performed
- Remains on home DAPT for his history of CAD, started on statin here
- Neurology consulted, appreciate further recommendation
Plan
- Follow-up MRI brain if his mental status permits testing
- Start high intensity statin with LDL goal <55, continue ezetimibe
- Continue with home aspirin and Plavix for DAPT
- BP goal normotension, blood glucose control
- Monitor neurochecks and NIHSS
- Monitor tele
#Oropharyngeal dysphagia
#Aspiration
- Likely related to recent suspected CVA, evaluated by BEEF PUSHER today
- Recommended regular diet however nursing with concerns of aspirating thin liquids
- VSE today with aspiration to all consistencies, possibly affected by Haldol he has received
- Start strict n.p.o. diet, maintenance IV fluids
- Aspiration precautions, BEEF PUSHER appreciated
- Will avoid Haldol prior to next speech
#Leukocytosis
#CML
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
- Antibiotics deferred on arrival, no obvious infectious findings at this time
- Differential without mention of basophils, would expect these to be elevated
- Will trend CBC and temperature curve off antibiotics for now
#CAD s/p PCI x 6
#Dyslipidemia
- Home regimen includes DAPT with aspirin and Plavix, metoprolol tartrate twice daily
- Not currently on statin therapy as last lipid panel with LDL near 39, is on ezetimibe
- Follow-up repeat lipid panel as above, consider starting statin
- No signs of ACS at this time
#NIDDM
- A1c 8.7%; no known microvascular disease though likely associated with PAD
- Home regimen includes metformin and saxagliptin; will increase metformin to 1 g twice daily at discharge
- Was transition to ISS with Accu-Cheks while inpatient
- Follow-up A1c as above, BG goal 140-180 here
#Iatrogenic hypothyroidism
#S/P thyroidectomy
- Home regimen includes levothyroxine 150 mcg daily
- No signs or symptoms of thyroid dysfunction at this time
#Primary hypertension
- Home regimen includes amlodipine, metoprolol tartrate, losartan
- No known history of hypertensive systemic disease, may be associated with possible CVA here
- Will transition from metoprolol to tartrate 100 mg daily to carvedilol 12.5 mg twice daily for better antihypertensive effect
- Continue with remainder of home regimen and monitor vitals
- Blood pressure goal normotension
#GERD
- No known history of Suarez's esophagus or erosive disease
- Not currently on PPI or antihistamine
#Dementia
#Behavioral disturbances
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
- Developed agitation for which as needed IM Haldol was ordered
- Continue to monitor, proceed with delirium precautions
- Avoid benzodiazepines for delirium
Diet: Regular
Thromboprophylaxis: SQ Lovenox
CODE STATUS: Full code
Disposition: SNF v. AIR
Anticipated Discharge: > 48 hours
Subjective/Interval History
-
Date of Service: December 11, 2024
Seen and examined at the bedside. No acute events reported overnight. AFVSS this morning
CT head yesterday did not show signs of left basal ganglia and swan radiata infarct, MRI remains pending at this point
Denies any new complaints. Worsened strength to the right sided extremities. Plan for repeat speech eval today
Objective Data
-
Labs:
Laboratory Results
12/11/24
08:25
WBC 21.4 H
Hgb 12.6 L
Hct 35.4 L
Plt Count 159
Sodium 136
Potassium 4.5
Chloride 104
Carbon Dioxide 16 L
BUN 16
Creatinine 0.6 L
Glucose 176 H
Calcium 8.7
Vital Signs:
Vital Signs
Temp Pulse Resp BP Pulse Ox
97.9 F 86 18 147/71 99
12/11/24 08:05 12/11/24 08:05 12/11/24 08:05 12/11/24 08:05 12/11/24 08:05
I&O
12/10/24 12/11/24 12/12/24
06:59 06:59 06:59
Intake Total 220 / 220
Balance 220 / 220
Review of Systems
-
History Source: Patient
All other systems: Reviewed and negative
Physical Exam
-
General: Well Developed, No Apparent Distress and Appears Chronically Ill
HEENT: Normocephalic, Atraumatic, Moist Mucous Membranes and Anicteric
Respiratory: Clear to Auscultation and Non Labored Respirations; Negative Accessory Resp Muscle Use
Cardiac: Regular Rhythm and S1/S2; Negative Murmur, Rub or Gallop
GI: Soft, Nontender, Nondistended and Normal Bowel Sounds
Musculoskeletal: No Clubbing, No Cyanosis and No Edema
Skin: Warm and Dry; Negative Rash
Neuro: Awake, Alert, Oriented and Other (0-1/5 MMS of (R) extremities, (R) facial droop, no gross sensory deficits)
Psych: Calm
Data Reviewed
-
CT Scan: Report Reviewed by me and Discussed with Physician (neuro)
Labs: Labs Reviewed by me and Discussed with Patient
[2024-12-11 10:23] LABS: VerifyNow PRU 245 PRU (180-376)
[2024-12-11] MEDS: NOVOLOG FLEXPEN-LOW RESISTANCE SC ×3 (10:51→17:58)
[2024-12-11] MEDS: FOLVITE PO ×2 (10:55→21:32)
[2024-12-11] MEDS: FEOSOL PO (10:55)
[2024-12-11] MEDS: COREG PO ×2 (10:55→20:05)
[2024-12-11] MEDS: MIRALAX PO (10:56)
[2024-12-11] MEDS: PLAVIX PO (10:56)
[2024-12-11] MEDS: VITAMIN D3 (cholecalciferol) PO (10:56)
[2024-12-11] MEDS: VITAMIN C PO (10:56)
[2024-12-11] MEDS: LOW STRENGTH ASPIRIN PO (10:56)
[2024-12-11 11:50] LABS: Glucose - Point of Care 170 mg/dl (70-99)
--- NOTE | 2024-12-11 14:34 | CM ---
Chart Reviewed. Anticipated Discharge: > 48 hours. PT recommends Acute Rehab when stable for discharge
Sent a text to Attending; requested PM&R consult order.
[facility]
--- NOTE | 2024-12-11 15:52 | W.PN.NEURO.1 ---
Today's Communication / Plan
-
The patient appeared to have speech difficulty and right-sided weakness which is about the same as it was yesterday yesterday. The patient has severe aphasia and right-sided facial droop, also the strength is 1/5 in the RUE and 2/5 in the RLE. The
strength is 5/5 in the LUE and LLE.
CT head was done yesterday and the findings are suspicious for a developing area of acute or subacute ischemia in the left periventricular swan radiata/superior margin of the left basal ganglia.
MRI brain is pending.
The plan is to continue DAPT and atorvastatin 40 mg daily.
Subjective/Objective
Subjective Data
The patient appeared to have speech difficulty and right-sided weakness which is about the same as it was yesterday yesterday. The patient has severe aphasia and right-sided facial droop, also the strength is 1/5 in the RUE and 2/5 in the RLE. The
strength is 5/5 in the LUE and LLE.
CT head was done yesterday and the findings are suspicious for a developing area of acute or subacute ischemia in the left periventricular swan radiata/superior margin of the left basal ganglia.
MRI brain is pending.
The plan is to continue DAPT and atorvastatin 40 mg daily.
I had a detailed discussion with the patient's regarding the assessment and the management plan, and she verbalized understanding of our discussion.
Past History
Past History
ED Past Medical History: CAD, GERD, HTN and NIDDM
ED Past Surgical History: Cardiac, Orthopedic and Other (Thyroidectomy)
Social History
Tobacco: Non-smoker
Alcohol: None
Drug: None
Personal:
Living: with family
Employment: Retired
Medications
-
Active Medications
Generic Name Dose Route Start Last Admin
Trade Name Freq PRN Reason Stop Dose Admin
Acetaminophen 650 mg 12/09/24 07:41
Acetaminophen 650 Mg Rectal Suppository RECTAL 01/06/25 07:40
Q4HPRN PRN
CHILDRESS, mild pain, or temp >100.4F
Acetaminophen 650 mg 12/09/24 07:41
Acetaminophen 325 Mg Tablet PO 01/06/25 07:40
Q4HPRN PRN
CHILDRESS, mild pain, or temp >100.4F
Amlodipine Besylate 10 mg 12/09/24 18:00 12/10/24 16:26
Amlodipine 10 Mg Tablet PO 01/06/25 17:59 Not Given
QPM BART
Ascorbic Acid 1,000 mg 12/09/24 08:00 12/11/24 10:56
Ascorbic Acid 500 Mg Tablet PO 01/06/25 07:59 Not Given
DAILY BART
Aspirin 81 mg 12/09/24 08:00 12/11/24 10:56
Aspirin 81 Mg Chewable Tablet PO 01/06/25 07:59 Not Given
DAILY BART
Atorvastatin Calcium 40 mg 12/10/24 18:00 12/10/24 16:26
Atorvastatin (Lipitor) 40 Mg Tablet PO 01/07/25 17:59 Not Given
QPM BART
Carvedilol 12.5 mg 12/09/24 20:00 12/11/24 10:55
Carvedilol 12.5 Mg Tablet PO 01/06/25 19:59 Not Given
BID BART
Cholecalciferol 125 mcg 12/09/24 08:00 12/11/24 10:56
Cholecalciferol (Vitamin D3) 125 Mcg Tablet (5,000 Units) PO 01/06/25 07:59 Not Given
DAILY BART
Clopidogrel Bisulfate 75 mg 12/09/24 08:00 12/11/24 10:56
Clopidogrel 75 Mg Tablet PO 01/06/25 07:59 Not Given
DAILY BART
Dextrose 12.5 grams 12/09/24 07:41
Dextrose 50% (0.5 Grams/Ml) 50 Ml Syringe IV 01/06/25 07:40
[id number] PRN
hypoglycemia
Protocol
Ezetimibe 10 mg 12/09/24 18:00 12/10/24 16:26
Ezetimibe (Zetia) 10 Mg Tablet PO 01/06/25 17:59 Not Given
QPM BART
Enoxaparin Sodium 40 mg 12/09/24 18:00 12/10/24 17:06
Enoxaparin Sodium 40 Mg/0.4 Ml Syringe SC 01/06/25 17:59 40 mg
QPM BART Administration
Ferrous Sulfate 325 mg 12/09/24 08:00 12/11/24 10:55
Ferrous Sulfate 325 Mg Tablet PO 01/06/25 07:59 Not Given
DAILY BART
Folic Acid 1 mg 12/09/24 08:00 12/11/24 10:55
Folic Acid 1 Mg Tablet PO 01/06/25 07:59 Not Given
BID BART
Glucagon 1 mg 12/09/24 07:41
Glucagon 1 Mg Vial IM 01/06/25 07:40
PRN PRN
hypoglycemia
Protocol
Haloperidol Lactate 1 mg 12/10/24 11:01
Haloperidol 5 Mg/Ml 1 Ml Vial IM 01/06/25 13:59
Q4HPRN PRN
agitation/aggression
Sodium Chloride 1,000 mls @ 75 mls/hr 12/10/24 11:00 12/11/24 13:45
0.45%Nacl IV 1,000 mls
.[id number] BART Administration
Insulin Aspart 0 units 12/09/24 07:41 12/11/24 11:57
Insulin Aspart Low Resistance 300 Units/3 Ml Pen.Injctr SC 01/06/25 07:40 Not Given
AC BART
Protocol
Levothyroxine Sodium 150 mcg 12/09/24 08:00 12/10/24 20:43
Levothyroxine 150 Mcg Tablet PO 01/06/25 07:59 Not Given
DAILY@0600 BART
Losartan Potassium 100 mg 12/09/24 18:00 12/10/24 16:25
Losartan 100 Mg Tablet PO 01/06/25 17:59 Not Given
QPM BART
Polyethylene Glycol 17 grams 12/09/24 08:00 12/11/24 10:56
Polyethylene Glycol Powder 17 Grams Packet PO 01/06/25 07:59 Not Given
DAILY BART
Quetiapine Fumarate 25 mg 12/09/24 13:44
Quetiapine 25 Mg Tablet PO 01/06/25 13:43
BIDPRN PRN
agitation
Sodium Chloride 0 flush 12/09/24 08:00
Sodium Chloride 0.9% (Flush) Syringe IV 01/06/25 07:59
PER PROTOCOL BART
Home Medications
�Medication �Instructions �Recorded
Vitamin B-12 5 g PO QPM Supplement 11/11/21
amlodipine 10 mg tablet 10 mg PO QPM Blood pressure 11/11/21
ascorbic acid (vitamin C) 1,000 mg 1 g PO DAILY Supplement 11/11/21
tablet (Vitamin C)
clopidogrel 75 mg tablet 75 mg PO DAILY Blood clot 11/11/21
prevention/tx
folic acid 1 mg tablet 1 mg PO BID Supplement 11/11/21
losartan 100 mg tablet 100 mg PO QPM Blood pressure 11/11/21
metformin 500 mg tablet,extended 500 mg PO DAILY Diabetes 11/11/21
release 24 hr
metformin 500 mg tablet,extended 1,000 mg PO QPM Diabetes 11/11/21
release 24hr (osmotic)
metoprolol tartrate 100 mg tablet 100 mg PO DAILY Blood pressure 11/11/21
nitroglycerin 0.4 mg sublingual 0.4 mg sublingual [id number] PRN 11/11/21
tablet chest pain #25 tabs
aspirin 81 mg chewable tablet 81 mg PO DAILY #30 tabs 11/15/21
cholecalciferol (vitamin D3) 125 125 mcg PO DAILY Supplement 12/09/24
mcg (5,000 unit) tablet (Vitamin
D3)
ezetimibe 10 mg tablet 10 mg PO QPM High Cholesterol 12/09/24
ferrous sulfate 325 mg (65 mg 65 mg PO DAILY Supplement 12/09/24
iron) tablet (Iron (ferrous
sulfate))
levothyroxine 150 mcg tablet 150 mcg PO DAILY Thyroid 12/09/24
saxagliptin 5 mg tablet 5 mg PO DAILY Diabetes 12/09/24
Vital Signs and Labs
-
Vital Signs and Labs:
Vital Signs
Temp Pulse Resp BP Pulse Ox
36.5 C 76 18 129/63 99
12/11/24 15:43 12/11/24 15:43 12/11/24 15:43 12/11/24 15:43 12/11/24 15:43
Lab Results
12/11/24 08:25
12/11/24 08:25
PT 12.9 Sec (11.4-14.6) 12/09/24 02:27
INR 0.95 12/09/24 02:27
APTT 29.1 Sec (23.4-35.0) 12/09/24 02:27
Sodium 136 mmol/L (135-145) 12/11/24 08:25
Potassium 4.5 mmol/L (3.5-5.1) 12/11/24 08:25
BUN 16 mg/dl (9-20) 12/11/24 08:25
Glucose 176 mg/dl (70-99) H 12/11/24 08:25
Calcium 8.7 mg/dl (8.4-10.2) 12/11/24 08:25
LDL Cholesterol, Calc 68 mg/dl 12/10/24 06:38
Vitamin B12 669 pg/ml (239-931) 12/10/24 06:38
[2024-12-11] MEDS: COZAAR PO (16:50)
[2024-12-11 17:16] LABS: Glucose - Point of Care 165 mg/dl (70-99)
[2024-12-11] MEDS: ZETIA PO (18:04)
[2024-12-11] MEDS: NORVASC PO (18:04)
[2024-12-11] MEDS: LOVENOX 40 MG SC (18:05)
[2024-12-12] VITALS (8 sets, daily range): BP systolic 130–168; BP diastolic 72–89; PULSE 97; O2SAT 97; BMI 25.9
[2024-12-12 00:12] LABS: Glucose - Point of Care 165 mg/dl (70-99)
[2024-12-12] MEDS: 0.45%NACL 1000 IV (04:08)
[2024-12-12 05:42] LABS: Glucose - Point of Care 173 mg/dl (70-99)
[2024-12-12] MEDS: SYNTHROID PO (07:17)
[2024-12-12] MEDS: PLAVIX PO (07:54)
[2024-12-12] MEDS: VITAMIN C PO (07:54)
[2024-12-12] MEDS: MIRALAX PO (07:54)
[2024-12-12] MEDS: FOLVITE PO ×2 (07:54→20:15)
[2024-12-12] MEDS: LOW STRENGTH ASPIRIN PO (07:54)
[2024-12-12] MEDS: COREG PO ×2 (07:54→20:15)
[2024-12-12] MEDS: FEOSOL PO (07:54)
[2024-12-12] MEDS: VITAMIN D3 (cholecalciferol) PO (07:55)
[2024-12-12] MEDS: NOVOLOG FLEXPEN-LOW RESISTANCE SC ×2 (09:04→09:27)
--- NOTE | 2024-12-12 09:10 | W.PN.HOSP.TC ---
Today's Communication/Plan
-
Rectal aspirin
Start DHT tube feeds
Consult GI for PEG tube
Hold oral meds
IV bicarb drip
Assessment / Plan
Assessment / Plan
#Right-sided extremity weakness and left facial droop
#Cerebrovascular disease
- Suspect ASCVD driven event within the left Jim-cerebrum/basal ganglia/thalamus with symptoms and Hx
- Concern for subacute CVA, right-sided weakness that started 6 days prior to arrival, also with facial droop
- No indication for TNK or thrombectomy due to timeframe, no indication for aggressive BP goals
- Initial CT scan without any acute findings, CTA showed carotid stenosis and bilateral M1-2 stenosis
- Repeat CT head showed signs of left basal ganglia and wsan radiata infarct, deficits worsened
- MRI brain without contrast was ordered though yet to be performed
- Recommended for DAPT, statin however unable to tolerate p.o. as below
- NIHSS in the range of 16-20 at this time
Plan
- Follow-up MRI brain
- Continue with rectal aspirin
- Resume Plavix and high intensity statin when tolerating p.o.
- BP goal normotension, blood glucose control
- Monitor neurochecks and NIHSS
- Monitor tele
#Oropharyngeal dysphagia
#Aspiration
- Likely related to recent suspected CVA, evaluated by [employer] today
- Recommended regular diet however nursing with concerns of aspirating thin liquids
- VSE today with aspiration to all consistencies, possibly affected by Haldol he has received
- Continue with strict n.p.o. status, start DHT tube feeds with Lina, consult nutrition
- GI consulted, planning for PEG tube likely on 12/15
#Metabolic acidosis
- CO2 on morning BMP was 8, VBG with pH 7.27 and low pCO2
- Suspect this is associated with poor intake, saline containing fluids
- Will start on IV bicarbonate drip at 100 mL/h
- Trend BMP
#Leukocytosis
#CML
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
- Antibiotics deferred on arrival, no obvious infectious findings at this time
- Differential without mention of basophils, would expect these to be elevated
- Will trend CBC and temperature curve off antibiotics for now
#CAD s/p PCI x 6
#Dyslipidemia
- Home regimen includes DAPT with aspirin and Plavix, metoprolol tartrate twice daily
- Not currently on statin therapy as last lipid panel with LDL near 39, is on ezetimibe
- Follow-up repeat lipid panel as above, consider starting statin
- No signs of ACS at this time
#NIDDM
- A1c 8.7%; no known microvascular disease though likely associated with PAD
- Home regimen includes metformin and saxagliptin; will increase metformin to 1 g twice daily at discharge
- Was transition to ISS with Accu-Cheks while inpatient
- Follow-up A1c as above, BG goal 140-180 here
#Iatrogenic hypothyroidism
#S/P thyroidectomy
- Home regimen includes levothyroxine 150 mcg daily
- No signs or symptoms of thyroid dysfunction at this time
#Primary hypertension
- Home regimen includes amlodipine, metoprolol tartrate, losartan
- No known history of hypertensive systemic disease, may be associated with possible CVA here
- Will transition from metoprolol to tartrate 100 mg daily to carvedilol 12.5 mg twice daily for better antihypertensive effect
- Continue with remainder of home regimen and monitor vitals
- Blood pressure goal normotension
#GERD
- No known history of Suarez's esophagus or erosive disease
- Not currently on PPI or antihistamine
#Dementia
#Behavioral disturbances
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
- Developed agitation for which as needed IM Haldol was ordered
- Continue to monitor, proceed with delirium precautions
- Avoid benzodiazepines for delirium
Diet: Regular
Thromboprophylaxis: SQ Lovenox
CODE STATUS: Full code
Disposition: Acute rehab when medically stable
Discussed with GI and neurology
Anticipated Discharge: > 48 hours
Subjective/Interval History
-
Date of Service: December 12, 2024
Seen and examined at the bedside. No acute events reported overnight. AFVSS this morning
CO2 on morning BMP was 8, VBG with low CO2 consistent with metabolic acidosis. Seen by speech and to remain n.p.o. due to severe dysphagia
ROS limited by his dementia and acuity.
Objective Data
-
Labs:
Laboratory Results
12/12/24
06:45
WBC Pending
Hgb Pending
Hct Pending
Plt Count Pending
Sodium Pending
Potassium Pending
Chloride Pending
Carbon Dioxide Pending
BUN Pending
Creatinine Pending
Glucose Pending
Calcium Pending
Vital Signs:
Vital Signs
Temp Pulse Resp BP Pulse Ox
97.8 F 98 19 130/72 99
12/12/24 07:20 12/12/24 07:20 12/12/24 07:20 12/12/24 07:20 12/12/24 07:20
I&O
12/11/24 12/12/24 12/13/24
06:59 06:59 06:59
Intake Total 0 / 0
Balance 0 / 0
Review of Systems
-
Unable to obtain full review of systems at this time due to: Dementia
Physical Exam
-
General: Well Developed, Well Nourished, No Apparent Distress and Appears Chronically Ill
HEENT: Normocephalic, Atraumatic, Moist Mucous Membranes, Anicteric, PERRLA and Other (Left eye with corneal clouding)
Respiratory: Clear to Auscultation and Non Labored Respirations; Negative Accessory Resp Muscle Use
Cardiac: Regular Rhythm and S1/S2; Negative Murmur, Rub or Gallop
GI: Soft, Nontender, Nondistended and Normal Bowel Sounds
Musculoskeletal: No Clubbing, No Cyanosis and No Edema
Skin: Warm and Dry; Negative Rash
Neuro: Awake, No Sensory Deficits and Other (0/5 MMS to right extremities); Negative Alert or Oriented
Psych: Calm
Data Reviewed
-
Labs: Labs Reviewed by me and Discussed with Patient
[2024-12-12 09:15] LABS: Hematocrit 39.0 % (39.0-52.0); Hemoglobin 13.4 g/dL (13.0-18.0); Mean Corp Hgb Conc. 34.4 g/dL (33.0-37.0); Mean Corpuscular Volume 85.2 fL (80.0-94.0); Red Cell Dist. Width 14.2 % (11.5-14.5)
[2024-12-12 09:42] LABS: Absolute Neutrophils -Man Diff 22.1 10^3/uL (1.4-6.5); Normal RBC Morphology Yes; Platelets Checked Yes; Total Cells Counted 100
[2024-12-12 09:46] LABS: Blood Urea Nitrogen 13 mg/dl (9-20); Calcium 8.7 mg/dl (8.4-10.2); Carbon Dioxide 8 mmol/L (22-30); Chloride 107 mmol/L (98-107); Estimated Creatinine Clearance 67 ml/min; Glucose 162 mg/dl (70-99); Magnesium 1.6 mg/dl (1.6-2.3); Potassium 4.2 mmol/L (3.5-5.1); Sodium 137 mmol/L (135-145); eGFR > 60.00
[2024-12-12 10:37] LABS: Venous Blood Gas B.E. -12.5 mmol/L (-4 to +4); Venous Blood Gas O2 Sat % 94.1 %
[2024-12-12] MEDS: ASPIRIN 300 MG RECTAL (10:47)
[2024-12-12 11:57] LABS: Glucose - Point of Care 220 mg/dl (70-99)
[2024-12-12] MEDS: SODIUM BICARBONATE 1150 MEQ IV (12:12)
[2024-12-12] MEDS: NOVOLOG FLEXPEN-LOW RESISTANCE 2 UNITS SC ×2 (12:19→17:20)
--- NOTE | 2024-12-12 12:41 | CON.GI ---
Addendum entered and electronically signed by Tiara Jones DO 12/12/24 15:35:
The patient was seen and examined by me independently in collaboration with the nurse practitioner.
Past medical history/social history/medications/allergies/family history reviewed.
Lab data and imaging data reviewed.
Chaitanya Willard is an 84 y.o. male with pmhx CAD s/p PCI x6, DM2, hypothyroidism, HTN, CML, dementia admitted with right-sided weakness, workup revealing severe narrowing in right P2 segment, treating as acute CVA. Speech and swallow evaluation with
aspiration of thin liquid barium, nectar thick barium and honey thick barium, puree and solids not attempted. MRI brain ordered, still pending. GI consulted for placement of PEG tube.DHT attempted to be placed by GI at bedside, unable to advance
pass 45 and stopped.
Moderate oral and severe pharyngeal dysphagia in setting of subacute CVA
-last plavix dose 12/10
-plan for PEG tube placement on Sunday, 12/15
-Suspect hiatal hernia, will reattempt DHT placement in the morning, may need additional imaging prior to PEG placement to ensure safe window for gastrostomy tube
-check coags on AM of 12/15
Original Note:
Consultation
-
Date/Time Consultation Requested: 12/12/24 1140
Date/Time Consultation Performed: 12/12/24 1240
Requesting Provider: Dev Madison MD
Performing Provider: SOPHIA Infante, Neida Jones DO
Reason for Consultation: peg eval
Medical History
Chief Complaint / HPI
History of Present Illness:
Pt is an 84yo with hx CAD with prior stenting, GERD, robertson's (per OP chart), HTN, hypercholesterolemia, hypothyroidism, prior thyroidectomy, colon polyps with prior TV polyp with high grade dysplasia , HHwith current admission with right sided
weakness and left facial droop concern for CVA. Asked to see for nutrition. Pt seen by speech therapy with recommended NPO and VSE when able. In review with only noted vomiting clear material and diarrhea prior to admission not chronic
issue. Pt otherwise no prior hx dysphagia, GERD, nausea, abdominal pain, constipation, blood or black in stools. Last [facility] EGD 2006 EGD [facility]-- HH, schazki's ring, normal duodenum, erythematous mucosa bx neg.
Past Medical History
Past Medical History: CVA, GERD, HTN, Hypercholesterolemia, Hypothyroidism, NIDDM and Other (low testosterone, ED, JONO, robertson's esophagus, UGI bleed, DJD, adenomatous colon polyps with prior TV polyp with high grade dysplasia, HH, schazki's ring )
Past Surgical History: Cardiac (angio with stent ), Orthopedic (b/l TKR, rotator cuff, meniscus surgery ) and Other (thyroidectomy)
Social History
Tobacco: Non-Smoker
Alcohol: None
Drug: None
Personal:
Living: With Family
Employment: Retired
Family History
Family History: Other (no family hx GI malignancies )
Allergies / Home Medications
Allergy/AdvReac Type Severity Reaction Status Date / Time
abciximab Allergy problems Verified 12/09/24 02:49
with blood
levels
hydralazine Allergy Unknown Verified 12/09/24 02:49
morphine Allergy OD at Verified 12/09/24 02:49
level dose
per patient
oxycodone (From Percocet) Allergy Migranes Verified 12/09/24 02:49
lorazepam (From Ativan) AdvReac Severe Unknown Verified 12/09/24 15:17
�Medication �Instructions �Recorded
Vitamin B-12 5 g PO QPM Supplement 11/11/21
amlodipine 10 mg tablet 10 mg PO QPM Blood pressure 11/11/21
ascorbic acid (vitamin C) 1,000 mg 1 g PO DAILY Supplement 11/11/21
tablet (Vitamin C)
clopidogrel 75 mg tablet 75 mg PO DAILY Blood clot 11/11/21
prevention/tx
folic acid 1 mg tablet 1 mg PO BID Supplement 11/11/21
losartan 100 mg tablet 100 mg PO QPM Blood pressure 11/11/21
metformin 500 mg tablet,extended 500 mg PO DAILY Diabetes 11/11/21
release 24 hr
metformin 500 mg tablet,extended 1,000 mg PO QPM Diabetes 11/11/21
release 24hr (osmotic)
metoprolol tartrate 100 mg tablet 100 mg PO DAILY Blood pressure 11/11/21
nitroglycerin 0.4 mg sublingual 0.4 mg sublingual [id number] PRN 11/11/21
tablet chest pain #25 tabs
aspirin 81 mg chewable tablet 81 mg PO DAILY #30 tabs 11/15/21
cholecalciferol (vitamin D3) 125 125 mcg PO DAILY Supplement 12/09/24
mcg (5,000 unit) tablet (Vitamin
D3)
ezetimibe 10 mg tablet 10 mg PO QPM High Cholesterol 12/09/24
ferrous sulfate 325 mg (65 mg 65 mg PO DAILY Supplement 12/09/24
iron) tablet (Iron (ferrous
sulfate))
levothyroxine 150 mcg tablet 150 mcg PO DAILY Thyroid 12/09/24
saxagliptin 5 mg tablet 5 mg PO DAILY Diabetes 12/09/24
Review of Systems
-
History Source: Patient and Family
Constitutional: Reports Other (feeling not )
EENT: Reports No Symptoms
Respiratory: Reports Cough
Cardiac: Reports No Symptoms
Abdomen/GI: Reports No Symptoms
: Reports No Symptoms
Musculoskeletal: Reports No Symptoms
Skin: Reports No Symptoms
Neurological: Reports Other (current right sided weakness )
Endocrine: Reports No Symptoms
Hematologic/Lymphatic: Reports No Symptoms
Vital Signs
Temp Pulse Resp BP Pulse Ox
98.2 F 92 18 146/73 100
12/12/24 11:24 12/12/24 11:24 12/12/24 11:24 12/12/24 11:24 12/12/24 11:24
Physical Exam
Exam
General: Other (s/p CVA with minimal verbal attempt with some agitation at time per staff currently calm)
HEENT: Normocephalic and Anicteric
Respiratory: Non Labored Respirations
Cardiac: Regular Rhythm (with some tachycardia with DHT attempt then improved )
GI: Soft, Non Tender and Non Distended
Musculoskeletal: No Clubbing and No Cyanosis
Skin: Warm and Dry
Neuro: Other (minimal responsiveness some eye opening right side weakness )
Psych: Calm
Results
WBC 25.8 10^3/uL (4.8-10.8) H 12/12/24 06:45
Hgb 13.4 g/dL (13.0-18.0) 12/12/24 06:45
Hct 39.0 % (39.0-52.0) 12/12/24 06:45
MCV 85.2 fL (80.0-94.0) 12/12/24 06:45
Plt Count 10^3/uL (130-400) 12/12/24 06:45
PT 12.9 Sec (11.4-14.6) 12/09/24 02:27
INR 0.95 12/09/24 02:27
APTT 29.1 Sec (23.4-35.0) 12/09/24 02:27
Sodium 137 mmol/L (135-145) 12/12/24 06:45
Potassium 4.2 mmol/L (3.5-5.1) 12/12/24 06:45
Chloride 107 mmol/L (98-107) 12/12/24 06:45
Carbon Dioxide 8 mmol/L (22-30) L* 12/12/24 06:45
BUN 13 mg/dl (9-20) 12/12/24 06:45
Creatinine 0.7 mg/dL (0.7-1.3) 12/12/24 06:45
Calcium 8.7 mg/dl (8.4-10.2) 12/12/24 06:45
Total Bilirubin 1.0 mg/dl (0.2-1.3) 12/09/24 02:27
AST 30 U/L (17-59) 12/09/24 02:27
ALT 19 U/L (0-50) 12/09/24 02:27
Alkaline Phosphatase 65 U/L (38-126) 12/09/24 02:27
Diagnostic Image Results:
2021 CT a/p without IV or oral contrast
1. No evidence of intestinal obstruction or bowel inflammatory process. Colonic diverticulosis without evidence of diverticulitis.
2. No evidence of hematoma within either groin.
3. Cholelithiasis without evidence of acute cholecystitis.
4. Excreted contrast within the urinary bladder from recent cardiac catheterization.
5. Compression fracture of the L3 vertebral body, new compared to prior CT dated 12/09/2014. Fracture may be acute or chronic, please correlate with symptoms.
Prior GI Procedures:
EGD: EGD 2006 EGD [facility]-- HH, schazki's ring, normal duodenum, erythematous mucosa bx neg.
last 2018 colonoscopy [facility] One 7 mm polyp in the cecum, removed with a cold snare. Resected and retrieved - Diverticulosis in the sigmoid colon and in the descending colon. - The distal rectum and anal verge are normal on retroflexion view.
repeat 3-5 years bx no adenoma seen
Assessment / Plan
-
Pt is an 84yo with hx CAD with prior stenting, GERD, robertson's (per OP chart), HTN, hypercholesterolemia, hypothyroidism, prior thyroidectomy, colon polyps with prior TV polyp with high grade dysplasia , HH with current admission with right sided
weakness and left facial droop concern for CVA. Asked to see for nutrition. Pt seen by speech therapy with recommended NPO and VSE when able. In review with only noted vomiting clear material and diarrhea prior to admission not chronic
issue. Pt otherwise no prior hx dysphagia, GERD, nausea, abdominal pain, constipation, blood or black in stools. Last EGD 2006 EGD [facility]-- HH, schazki's ring, normal duodenum, erythematous mucosa bx neg.
-nutritional evaluation
-dysphagia
-right side weakness and left facial droop concern for CVA
-hx prior noted HH, schazki's ring, robertson's- per chart
other med problems:
CAD with prior stenting, GERD, HTN, hypercholesterolemia, hypothyroidism, prior thyroidectomy, colon polyps with prior TV polyp with high grade dysplasia
PLAN:
Reviewed with pt and family options of temp DHT vs peg
several attempts at DHT and stopped 45cm-- noted prior hx HH on EGD 2006
can try another attempt in am
noted with some tachycardia with attempt that improved
updated family
if unable place likely will need PEG on Sunday
cont to hold Plavix last dose 12/10
updated medical team
-
-
Thank you for consultation and allowing me to participate in the patient's care. 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
--- NOTE | 2024-12-12 13:57 | W.PN.NEURO.1 ---
Addendum entered and electronically signed by Bartolome Welsh MD 12/12/24 21:11:
I have seen and examined the patient on 12/12/2024. I have also discussed the patient's assessment and the management plan with nurse practitioner Julita Joshi and I generally agree with her management plan. Given below is my assessment and the
management plan.
The patient appeared to have speech difficulty and right-sided weakness which is about the same as it was yesterday. The patient has severe aphasia and right-sided facial droop, also the strength is 1/5 in the RUE and 2/5 in the RLE. The patient
has antigravity strength in the left upper and lower extremities.
CT head was done today that showed a subacute infarction within the left swan radiata.
An echocardiogram was done that showed a LVEF of 55 to 60%.
MRI brain is pending.
The plan is to continue DAPT and atorvastatin 40 mg daily. If the patient is unable to take the medications orally then 300 mg of aspirin per rectum is to be given.
I had a discussion with the patient's regarding the assessment and the management plan along with discharge to an inpatient rehab facility. The patient's verbalized understanding of our discussion.
Original Note:
Today's Communication / Plan
-
start rectal ASA
repeat CT head if unable to obtain MRI brain, MRI has been ordered
Neuro Assessment/Plan
Assessment
The patient has severe aphasia and right sided weakness. CT head findings are suspicious for a developing area of acute or subacute ischemia in the left periventricular swan radiata/superior margin of the left basal ganglia.
MRI brain has not been completed.
Plan
-Still awaiting MRI brain, if unable to obtain can get CT head
-Pt is not able to tolerate PO, so should start ASA rectally today
-Should resume DAPT when able to get medications
-goal normotension
-goal normoglycemia
-continue PT/OT and speech therapy
-agree with consultation with GI for possible peg tube placement
Subjective/Objective
Subjective Data
Date of Service: December 12, 2024
Pt seen at bedside today. present. No new events overnight. Pt continues to not be able to eat, drink or take oral medications.
Objective Data
Vital Signs
Temp Pulse Resp BP Pulse Ox
98.2 F 92 18 146/73 100
12/12/24 11:24 12/12/24 11:24 12/12/24 11:24 12/12/24 11:24 12/12/24 11:24
Lab Results
12/12/24 06:45
PT 12.9 Sec (11.4-14.6) 12/09/24 02:27
INR 0.95 12/09/24 02:27
APTT 29.1 Sec (23.4-35.0) 12/09/24 02:27
Sodium 137 mmol/L (135-145) 12/12/24 06:45
Potassium 4.2 mmol/L (3.5-5.1) 12/12/24 06:45
BUN 13 mg/dl (9-20) 12/12/24 06:45
Glucose 162 mg/dl (70-99) H 12/12/24 06:45
Calcium 8.7 mg/dl (8.4-10.2) 12/12/24 06:45
LDL Cholesterol, Calc 68 mg/dl 12/10/24 06:38
Vitamin B12 669 pg/ml (239-931) 12/10/24 06:38
Patient Allergies
abciximab Allergy (Verified 12/09/24 02:49)
problems with blood levels
hydralazine Allergy (Verified 12/09/24 02:49)
Unknown
morphine Allergy (Verified 12/09/24 02:49)
OD at level dose per patient
oxycodone (From Percocet) Allergy (Verified 12/09/24 02:49)
Migranes
lorazepam (From Ativan) Adverse Reaction (Severe, Verified 12/09/24 15:17)
Unknown
Review of Systems
-
Unable to obtain full review of systems at this time due to: Acuity
Musculoskeletal: Muscle Weakness
Neuro: Weakness (right sided weakness) and See existing Neuro Note
Physical Exam
-
General: Appears Chronically Ill
Extremities: No Edema
Extended Neurological Exam
Mood & Affect: Unable to Assess
Attention Span & Concentration: Closes Eyes after Stimulation
Memory: Unable to Assess
Tremor: Hand Tremor Absent and Head Tremor Absent
Involuntary Movement: None
Speech: Mute
Cranial Nerve II: Left Eye: Other (left gaze preference)
Cranial Nerve II: Right Eye: Other (left gaze preference)
Cranial Nerves III, IV, : Extraocular Movement: Other (left gaze preference)
Cranial Nerve V: Facial Sensation: Unable to Assess
Cranial Nerve VIII: Hearing: Unable to Assess
Cranial Nerve XI: Shoulder Shrug: Unable to Assess
Cranial Nerve XII: Tongue Protusion: Unable to Assess
Muscle Strength, Overall: Reduced on Right (unable to move right upper or lower extremities) and Reduced on Left (occasional spontaneous movements)
Cold Sensation: Unable to Assess
Vibration Sensation: Unable to Assess
Touch Sensation: Unable to Assess
Coordination: Unable to Assess
Gait & Station: Unable to Assess
Data Reviewed
-
CT-A: Report Reviewed
CT Head: Report Reviewed
MRI Head: Ordered
[2024-12-12] MEDS: COZAAR PO (16:01)
--- NOTE | 2024-12-12 16:45 | CM ---
Order to start tube feedings Jevity 1.5 .
NPO . PT saw patient indicated acute rehab.
Referral for [facility] . agrees with acute rehab at [facility].
Requested PMand R consult requested form .
Will need auth .
PLAn To [facility] after medically ready and auth obtained
[2024-12-12] MEDS: LOVENOX 40 MG SC (17:12)
[2024-12-12 17:14] LABS: Glucose - Point of Care 211 mg/dl (70-99)
[2024-12-12] MEDS: NORVASC PO (17:27)
[2024-12-12] MEDS: ZETIA PO (17:27)
[2024-12-12 18:16] LABS: Blood Urea Nitrogen 18 mg/dl (9-20); Calcium 8.7 mg/dl (8.4-10.2); Carbon Dioxide 14 mmol/L (22-30); Chloride 105 mmol/L (98-107); Estimated Creatinine Clearance 59 ml/min; Glucose 204 mg/dl (70-99); Potassium 4.0 mmol/L (3.5-5.1); Sodium 136 mmol/L (135-145); eGFR > 60.00
[2024-12-12 23:33] LABS: Glucose - Point of Care 173 mg/dl (70-99)
[2024-12-13] VITALS (7 sets, daily range): BP systolic 139–167; BP diastolic 71–87; PULSE 89; O2SAT 98
[2024-12-13] MEDS: DESENEX/MITRAZOL/ZEASORB 1 APPLIC TOPICAL ×3 (02:08→21:00)
[2024-12-13] MEDS: SODIUM BICARBONATE 1150 MEQ IV ×2 (02:49→21:00)
[2024-12-13] MEDS: SYNTHROID PO ×2 (05:41→23:47)
[2024-12-13 06:14] LABS: Glucose - Point of Care 193 mg/dl (70-99)
[2024-12-13 07:22] LABS: Glucose - Point of Care 208 mg/dl (70-99)
[2024-12-13] MEDS: FEOSOL PO (07:42)
[2024-12-13] MEDS: COREG PO ×2 (07:42→20:15)
[2024-12-13] MEDS: VITAMIN D3 (cholecalciferol) PO (07:42)
[2024-12-13] MEDS: PLAVIX PO (07:42)
[2024-12-13] MEDS: FOLVITE PO ×2 (07:42→20:16)
[2024-12-13] MEDS: MIRALAX PO (07:42)
[2024-12-13] MEDS: VITAMIN C PO (07:42)
[2024-12-13 08:15] LABS: Hematocrit 35.6 % (39.0-52.0); Hemoglobin 12.0 g/dL (13.0-18.0); Mean Corp Hgb Conc. 33.7 g/dL (33.0-37.0); Mean Corpuscular Volume 86.2 fL (80.0-94.0); Platelet Count 155 10^3/uL (130-400); Red Cell Dist. Width 14.4 % (11.5-14.5)
[2024-12-13 08:40] LABS: Blood Urea Nitrogen 17 mg/dl (9-20); Calcium 8.3 mg/dl (8.4-10.2); Carbon Dioxide 21 mmol/L (22-30); Chloride 102 mmol/L (98-107); Estimated Creatinine Clearance 67 ml/min; Glucose 154 mg/dl (70-99); Potassium 3.3 mmol/L (3.5-5.1); Sodium 139 mmol/L (135-145); eGFR > 60.00
--- NOTE | 2024-12-13 08:44 | W.PN.HOSP.TC ---
Today's Communication/Plan
-
Obtain MRI
Monitor NIHSS
Plan for PEG Sunday
IV bicarbonate and potassium
Assessment / Plan
Assessment / Plan
#Right-sided extremity weakness and left facial droop
#Cerebrovascular disease
- Suspect ASCVD driven event within the left Jim-cerebrum/basal ganglia/thalamus with symptoms and Hx
- Concern for subacute CVA, right-sided weakness that started 6 days prior to arrival, also with facial droop
- No indication for TNK or thrombectomy due to timeframe, no indication for aggressive BP goals
- Initial CT scan without any acute findings, CTA showed carotid stenosis and bilateral M1-2 stenosis
- Repeat CT head showed signs of left basal ganglia and swan radiata infarct, deficits worsened
- Second repeat of CT today demonstrates signs of evolving infarct, no ICH seen
- Recommended for DAPT, statin however unable to tolerate p.o. as below
- NIHSS in the range of 16-20 at this time
Plan
- Follow-up MRI brain
- Continue with rectal aspirin
- Resume Plavix and high intensity statin when tolerating p.o.
- BP goal normotension, blood glucose control
- Monitor neurochecks and NIHSS
- Monitor tele
#Oropharyngeal dysphagia
#Aspiration
- Likely related to recent suspected CVA, evaluated by CABLE TECHNICIAN today
- Recommended regular diet however nursing with concerns of aspirating thin liquids
- VSE today with aspiration to all consistencies, possibly affected by Haldol he has received
- Continue with strict n.p.o. status, start DHT tube feeds with Jevity, consult nutrition
- GI consulted, planning for PEG tube likely on 12/15
#Anion gap metabolic acidosis
- CO2 on morning BMP was 8, VBG with pH 7.27 and low pCO2, AG 20
- Suspect this is associated with poor intake, starvation ketosis
- Will start on IV bicarbonate drip at 100 mL/h with improvement
- Trend BMP on IV bicarbonate
- Planning for tube feeding as above
#Hypokalemia
- Due to lack of oral intake
- Ordered 80 mEq KCl IV today
- Trend BMP and mag levels
#Leukocytosis
#CML
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
- Antibiotics deferred on arrival, no obvious infectious findings at this time
- Differential without mention of basophils, would expect these to be elevated
- Will trend CBC and temperature curve off antibiotics for now
#CAD s/p PCI x 6
#Dyslipidemia
- Home regimen includes DAPT with aspirin and Plavix, metoprolol tartrate twice daily
- Not currently on statin therapy as last lipid panel with LDL near 39, is on ezetimibe
- Follow-up repeat lipid panel as above, consider starting statin
- No signs of ACS at this time
#NIDDM
- A1c 8.7%; no known microvascular disease though likely associated with PAD
- Home regimen includes metformin and saxagliptin; will increase metformin to 1 g twice daily at discharge
- Was transition to ISS with Accu-Cheks while inpatient
- Follow-up A1c as above, BG goal 140-180 here
#Iatrogenic hypothyroidism
#S/P thyroidectomy
- Home regimen includes levothyroxine 150 mcg daily
- No signs or symptoms of thyroid dysfunction at this time
#Primary hypertension
- Home regimen includes amlodipine, metoprolol tartrate, losartan
- No known history of hypertensive systemic disease, may be associated with possible CVA here
- Will transition from metoprolol to tartrate 100 mg daily to carvedilol 12.5 mg twice daily for better antihypertensive effect
- Continue with remainder of home regimen and monitor vitals
- Blood pressure goal normotension
#GERD
- No known history of Suarez's esophagus or erosive disease
- Not currently on PPI or antihistamine
#Dementia
#Behavioral disturbances
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
- Developed agitation for which as needed IM Haldol was ordered
- Continue to monitor, proceed with delirium precautions
- Avoid benzodiazepines for delirium
Diet: Regular
Thromboprophylaxis: SQ Lovenox
CODE STATUS: Full code
Disposition: Acute rehab when medically stable
Discussed with neurology
Anticipated Discharge: > 48 hours
Subjective/Interval History
-
Date of Service: December 13, 2024
Seen and examined overnight. No acute events overnight. AFVSS this morning
This morning patient seems more lethargic, minimally responsive to sternal rub. Repeated CT head which showed signs of evolving infarct
Unable to obtain ROS due to dementia and acuity of his current condition
Objective Data
-
Labs:
Laboratory Results
12/13/24
05:57
WBC 24.5 H
Hgb 12.0 L
Hct 35.6 L
Plt Count 155
Sodium 139
Potassium 3.3 L
Chloride 102
Carbon Dioxide 21 L
BUN 17
Creatinine 0.7
Glucose 154 H
Calcium 8.3 L
Vital Signs:
Vital Signs
Temp Pulse Resp BP Pulse Ox
97.6 F 77 18 139/71 98
12/13/24 07:12 12/13/24 07:12 12/13/24 07:12 12/13/24 07:12 12/13/24 07:12
I&O
12/12/24 12/13/24 12/14/24
06:59 06:59 06:59
Intake Total 0 / 0 300 / 300
Balance 0 / 0 300 / 300
Review of Systems
-
Unable to obtain full review of systems at this time due to: Dementia and Acuity
Physical Exam
-
General: Well Developed, No Apparent Distress and Appears Chronically Ill
HEENT: Normocephalic, Atraumatic, Moist Mucous Membranes and Anicteric
Respiratory: Clear to Auscultation and Non Labored Respirations; Negative Accessory Resp Muscle Use
Cardiac: Regular Rhythm and S1/S2; Negative Murmur, Rub or Gallop
GI: Soft, Nontender, Nondistended and Normal Bowel Sounds
Musculoskeletal: No Clubbing, No Cyanosis and No Edema
Skin: Warm and Dry; Negative Rash
Neuro: Other (Lethargic, flaccid to right extremities, facial droop)
Psych: Calm
Data Reviewed
-
MRI: Discussed with Physician (Neurologist)
Labs: Labs Reviewed by me and Discussed with Patient
--- NOTE | 2024-12-13 09:01 | W.PN.GI.CBS2 ---
Today's Communication / Plan
-
Plan for PEG on Sunday. Strict NPO. IVF and electrolyte repletion. Will discuss if patient needs imaging study prior to PEG placement.
Assessment / Plan
-
Chaitanya Willard is an 84 y.o. male with pmhx CAD s/p PCI x6, DM2, hypothyroidism, HTN, CML, dementia admitted with right-sided weakness, workup revealing severe narrowing in right P2 segment, treating as acute CVA. Speech and swallow evaluation with
aspiration of thin liquid barium, nectar thick barium and honey thick barium, puree and solids not attempted. MRI brain ordered, still pending. GI consulted for placement of PEG tube.DHT attempted to be placed by GI at bedside, unable to advance
pass 45 and stopped.
Moderate oral and severe pharyngeal dysphagia in setting of subacute CVA
-last plavix dose 12/10
-plan for PEG tube placement on Sunday, 12/15
-Suspect the DHT was coiling within the hernia sac, hiatal hernia seen on old EGD from 2006; additionally, has barretts esophagus listed on chart, no additional details of this
-Will plan for PEG on Sunday but will discuss cross-sectional imaging with Surgery to see if this should be obtained prior to get a better idea of his anatomy/hiatal hernial; unable to take any PO so cannot get UGI or CT w/ PO contrast. Need to
ensure safe window for gastrostomy tube.
-check coags on AM of 12/15
Discussed with plan who was at the bedside.
Subjective
Subjective
Date of Service: December 13, 2024
Patient seen in follow-up, at bedside. After reviewing patient's chart, we were able to find an old EGD with evidence of hiatal hernia, likely the reason we are unable to successfully place a DHT. After discussing with , we have decided not
to reattempt, as likely will again just coil within the hernia sac. Plan for PEG on Sunday.
Objective
Data Reviewed
Laboratory Data:
Laboratory Results
12/13/24 05:57
12/13/24 05:57
Laboratory Results
PT 12.9 Sec (11.4-14.6) 12/09/24 02:27
INR 0.95 12/09/24 02:27
APTT 29.1 Sec (23.4-35.0) 12/09/24 02:27
Magnesium 1.6 mg/dl (1.6-2.3) 12/12/24 06:45
Total Bilirubin 1.0 mg/dl (0.2-1.3) 12/09/24 02:27
AST 30 U/L (17-59) 12/09/24 02:27
ALT 19 U/L (0-50) 12/09/24 02:27
Alkaline Phosphatase 65 U/L (38-126) 12/09/24 02:27
Vital Signs and I&O:
Vital Signs
Temp Pulse Resp BP Pulse Ox
97.6 F 77 18 139/71 98
12/13/24 07:12 12/13/24 07:12 12/13/24 07:12 12/13/24 07:12 12/13/24 07:12
I&O
12/12/24 12/13/24 12/14/24
06:59 06:59 06:59
Intake Total 0 / 0 300 / 300
Balance 0 / 0 300 / 300
Physical Exam
Physical Exam
HEENT: Other (Aphasic)
GI: Soft, Non Distended and Normal Bowel Sounds
Neuro: Other (aphasic, right-sided weakness)
[2024-12-13] MEDS: KCL 270 MEQ IV ×2 (09:08→14:46)
[2024-12-13] MEDS: ASPIRIN 300 MG RECTAL (09:09)
[2024-12-13] MEDS: NOVOLOG FLEXPEN-LOW RESISTANCE 2 UNITS SC ×2 (09:10→11:54)
[2024-12-13 09:34] LABS: Magnesium 1.8 mg/dl (1.6-2.3)
[2024-12-13 10:58] LABS: Absolute Neutrophils -Man Diff 17.3 10^3/uL (1.4-6.5)
[2024-12-13 10:59] LABS: Platelets Checked YES
[2024-12-13 11:00] LABS: Normal RBC Morphology No; Poikilocytosis Slight
[2024-12-13 11:01] LABS: Total Cells Counted 100
[2024-12-13 11:54] LABS: Glucose - Point of Care 201 mg/dl (70-99)
[2024-12-13] MEDS: COZAAR PO (16:37)
[2024-12-13] MEDS: NORVASC PO (16:38)
[2024-12-13] MEDS: ZETIA PO (16:38)
[2024-12-13 17:15] LABS: Glucose - Point of Care 175 mg/dl (70-99)
[2024-12-13] MEDS: NOVOLOG FLEXPEN-LOW RESISTANCE 1 UNITS SC (17:16)
[2024-12-13] MEDS: LOVENOX 40 MG SC (17:16)
--- NOTE | 2024-12-13 17:49 | W.PN.NEURO.1 ---
Today's Communication / Plan
-
The patient has severe aphasia and right-sided weakness which is about the same as it was yesterday. The patient is more drowsy today than yesterday, and also has right-sided facial droop. The strength is there is 0/5 in the right upper extremity
and 1/5 in the right lower extremity. The patient withdraws the left upper and lower extremities to painful stimulus.
CT head was done today that showed a subacute infarct in the left swan radiata.
- Patient is not able to tolerate PO, so should given ASA rectally.
- Goal normotension
- Continue PT/OT and speech therapy
- Agree with consultation with GI for possible PEG tube placement
Subjective/Objective
Subjective Data
Date of Service: December 13, 2024
The patient has severe aphasia and right-sided weakness which is about the same as it was yesterday. The patient is more drowsy today than yesterday, and also has right-sided facial droop. The strength is there is 0/5 in the right upper extremity
and 1/5 in the right lower extremity. The patient withdraws the left upper and lower extremities to painful stimulus.
CT head was done today that showed a subacute infarct in the left swan radiata.
An echocardiogram was done that showed a LVEF of 55 to 60%.
MRI brain is pending.
The plan is to continue DAPT and atorvastatin 40 mg daily. If the patient is unable to take the medications orally then 300 mg of aspirin per rectum is to be given.
I had a discussion with the patient's regarding the assessment and the management plan along with discharge to an inpatient rehab facility. The patient's verbalized understanding of our discussion.
Objective Data
Vital Signs
Temp Pulse Resp BP Pulse Ox
36.6 C 82 18 154/74 99
12/13/24 14:56 12/13/24 14:56 12/13/24 14:56 12/13/24 14:56 12/13/24 14:56
Lab Results
12/13/24 05:57
12/13/24 05:57
PT 12.9 Sec (11.4-14.6) 12/09/24 02:27
INR 0.95 12/09/24 02:27
APTT 29.1 Sec (23.4-35.0) 12/09/24 02:27
Sodium 139 mmol/L (135-145) 12/13/24 05:57
Potassium 3.3 mmol/L (3.5-5.1) L 12/13/24 05:57
BUN 17 mg/dl (9-20) 12/13/24 05:57
Glucose 154 mg/dl (70-99) H 12/13/24 05:57
Calcium 8.3 mg/dl (8.4-10.2) L 12/13/24 05:57
LDL Cholesterol, Calc 68 mg/dl 12/10/24 06:38
Vitamin B12 669 pg/ml (239-931) 12/10/24 06:38
Patient Allergies
abciximab Allergy (Verified 12/09/24 02:49)
problems with blood levels
hydralazine Allergy (Verified 12/09/24 02:49)
Unknown
morphine Allergy (Verified 12/09/24 02:49)
OD at level dose per patient
oxycodone (From Percocet) Allergy (Verified 12/09/24 02:49)
Migranes
lorazepam (From Ativan) Adverse Reaction (Severe, Verified 12/09/24 15:17)
Unknown
Vital Signs and Labs
-
Vital Signs and Labs:
Vital Signs
Temp Pulse Resp BP Pulse Ox
36.6 C 82 18 154/74 99
12/13/24 14:56 12/13/24 14:56 12/13/24 14:56 12/13/24 14:56 12/13/24 14:56
Lab Results
12/13/24 05:57
12/13/24 05:57
PT 12.9 Sec (11.4-14.6) 12/09/24 02:27
INR 0.95 12/09/24 02:27
APTT 29.1 Sec (23.4-35.0) 12/09/24 02:27
Sodium 139 mmol/L (135-145) 12/13/24 05:57
Potassium 3.3 mmol/L (3.5-5.1) L 12/13/24 05:57
BUN 17 mg/dl (9-20) 12/13/24 05:57
Glucose 154 mg/dl (70-99) H 12/13/24 05:57
Calcium 8.3 mg/dl (8.4-10.2) L 12/13/24 05:57
LDL Cholesterol, Calc 68 mg/dl 12/10/24 06:38
Vitamin B12 669 pg/ml (239-931) 12/10/24 06:38
Medications
-
Active Medications
Generic Name Dose Route Start Last Admin
Trade Name Freq PRN Reason Stop Dose Admin
Acetaminophen 650 mg 12/09/24 07:41
Acetaminophen 650 Mg Rectal Suppository RECTAL 01/06/25 07:40
Q4HPRN PRN
CHILDRESS, mild pain, or temp >100.4F
Acetaminophen 650 mg 12/09/24 07:41
Acetaminophen 325 Mg Tablet PO 01/06/25 07:40
Q4HPRN PRN
CHILDRESS, mild pain, or temp >100.4F
Amlodipine Besylate 10 mg 12/09/24 18:00 12/13/24 16:38
Amlodipine 10 Mg Tablet PO 01/06/25 17:59 Not Given
QPM BART
Ascorbic Acid 1,000 mg 12/09/24 08:00 12/13/24 07:42
Ascorbic Acid 500 Mg Tablet PO 01/06/25 07:59 Not Given
DAILY BART
Aspirin 81 mg 12/09/24 08:00 12/12/24 07:54
Aspirin 81 Mg Chewable Tablet PO 01/06/25 07:59 Not Given
On Hold: 12/12/24 10:01 DAILY BART
Comment: While NPO
Aspirin 300 mg 12/12/24 10:00 12/13/24 09:09
Aspirin 300 Mg Rectal Suppository RECTAL 01/09/25 09:59 300 mg
DAILY BART Administration
Atorvastatin Calcium 40 mg 12/10/24 18:00 12/13/24 16:37
Atorvastatin (Lipitor) 40 Mg Tablet PO 01/07/25 17:59 Not Given
QPM BART
Carvedilol 12.5 mg 12/09/24 20:00 12/13/24 07:42
Carvedilol 12.5 Mg Tablet PO 01/06/25 19:59 Not Given
BID BART
Cholecalciferol 125 mcg 12/09/24 08:00 12/13/24 07:42
Cholecalciferol (Vitamin D3) 125 Mcg Tablet (5,000 Units) PO 01/06/25 07:59 Not Given
DAILY BART
Clopidogrel Bisulfate 75 mg 12/09/24 08:00 12/13/24 07:42
Clopidogrel 75 Mg Tablet PO 01/06/25 07:59 Not Given
DAILY BART
Dextrose 12.5 grams 12/09/24 07:41
Dextrose 50% (0.5 Grams/Ml) 50 Ml Syringe IV 01/06/25 07:40
[id number] PRN
hypoglycemia
Protocol
Ezetimibe 10 mg 12/09/24 18:00 12/13/24 16:38
Ezetimibe (Zetia) 10 Mg Tablet PO 01/06/25 17:59 Not Given
QPM BART
Enoxaparin Sodium 40 mg 12/09/24 18:00 12/13/24 17:16
Enoxaparin Sodium 40 Mg/0.4 Ml Syringe SC 01/06/25 17:59 40 mg
QPM BART Administration
Ferrous Sulfate 325 mg 12/09/24 08:00 12/13/24 07:42
Ferrous Sulfate 325 Mg Tablet PO 01/06/25 07:59 Not Given
DAILY BART
Folic Acid 1 mg 12/09/24 08:00 12/13/24 07:42
Folic Acid 1 Mg Tablet PO 01/06/25 07:59 Not Given
BID BART
Glucagon 1 mg 12/09/24 07:41
Glucagon 1 Mg Vial IM 01/06/25 07:40
PRN PRN
hypoglycemia
Protocol
Haloperidol Lactate 1 mg 12/10/24 11:01
Haloperidol 5 Mg/Ml 1 Ml Vial IM 01/06/25 13:59
Q4HPRN PRN
agitation/aggression
Sodium Bicarbonate 150 meq/ 1,150 mls @ 100 mls/hr 12/12/24 11:45 12/13/24 02:49
Sterile Water IV 1,150 mls
.[id number] BART Administration
Potassium Chloride 40 meq/ 270 mls @ 67.5 mls/hr 12/13/24 14:00 12/13/24 14:46
Sodium Chloride IV 12/13/24 17:59 270 mls
ONCE ONE Administration
Insulin Aspart 0 units 12/09/24 07:41 12/13/24 17:16
Insulin Aspart Low Resistance 300 Units/3 Ml Pen.Injctr SC 01/06/25 07:40 1 units
AC BART Administration
Protocol
Levothyroxine Sodium 150 mcg 12/09/24 08:00 12/13/24 05:41
Levothyroxine 150 Mcg Tablet PO 01/06/25 07:59 Not Given
DAILY@0600 BART
Losartan Potassium 100 mg 12/09/24 18:00 12/13/24 16:37
Losartan 100 Mg Tablet PO 01/06/25 17:59 Not Given
QPM BART
Miconazole Nitrate 0 applic 12/12/24 23:45 12/13/24 09:09
Miconazole Powder Bottle TOPICAL 01/09/25 23:44 1 applic
BID BART Administration
Polyethylene Glycol 17 grams 12/09/24 08:00 12/13/24 07:42
Polyethylene Glycol Powder 17 Grams Packet PO 01/06/25 07:59 Not Given
DAILY BART
Quetiapine Fumarate 25 mg 12/09/24 13:44
Quetiapine 25 Mg Tablet PO 01/06/25 13:43
BIDPRN PRN
agitation
Sodium Chloride 0 flush 12/09/24 08:00
Sodium Chloride 0.9% (Flush) Syringe IV 01/06/25 07:59
PER PROTOCOL BART
Home Medications
�Medication �Instructions �Recorded
Vitamin B-12 5 g PO QPM Supplement 11/11/21
amlodipine 10 mg tablet 10 mg PO QPM Blood pressure 11/11/21
ascorbic acid (vitamin C) 1,000 mg 1 g PO DAILY Supplement 11/11/21
tablet (Vitamin C)
clopidogrel 75 mg tablet 75 mg PO DAILY Blood clot 11/11/21
prevention/tx
folic acid 1 mg tablet 1 mg PO BID Supplement 11/11/21
losartan 100 mg tablet 100 mg PO QPM Blood pressure 11/11/21
metformin 500 mg tablet,extended 500 mg PO DAILY Diabetes 11/11/21
release 24 hr
metformin 500 mg tablet,extended 1,000 mg PO QPM Diabetes 11/11/21
release 24hr (osmotic)
metoprolol tartrate 100 mg tablet 100 mg PO DAILY Blood pressure 11/11/21
nitroglycerin 0.4 mg sublingual 0.4 mg sublingual [id number] PRN 11/11/21
tablet chest pain #25 tabs
aspirin 81 mg chewable tablet 81 mg PO DAILY #30 tabs 11/15/21
cholecalciferol (vitamin D3) 125 125 mcg PO DAILY Supplement 12/09/24
mcg (5,000 unit) tablet (Vitamin
D3)
ezetimibe 10 mg tablet 10 mg PO QPM High Cholesterol 12/09/24
ferrous sulfate 325 mg (65 mg 65 mg PO DAILY Supplement 12/09/24
iron) tablet (Iron (ferrous
sulfate))
levothyroxine 150 mcg tablet 150 mcg PO DAILY Thyroid 12/09/24
saxagliptin 5 mg tablet 5 mg PO DAILY Diabetes 12/09/24
[2024-12-13 23:49] LABS: Glucose - Point of Care 183 mg/dl (70-99)
[2024-12-14 03:08] VITALS: BP 157/82
[2024-12-14 06:11] LABS: Glucose - Point of Care 212 mg/dl (70-99)
[2024-12-14 07:13] VITALS: BP 152/85
--- NOTE | 2024-12-14 08:10 | W.PN.GI.CBS2 ---
Today's Communication / Plan
-
PEG tomorrow
Assessment / Plan
-
Chaitanya Willard is an 84 y.o. male with pmhx CAD s/p PCI x6, DM2, hypothyroidism, HTN, CML, dementia admitted with right-sided weakness, workup revealing severe narrowing in right P2 segment, treating as acute CVA. Speech and swallow evaluation with
aspiration of thin liquid barium, nectar thick barium and honey thick barium, puree and solids not attempted. MRI brain ordered, still pending. GI consulted for placement of PEG tube.DHT attempted to be placed by GI at bedside, unable to advance
pass 45 and stopped.
Moderate oral and severe pharyngeal dysphagia in setting of subacute CVA
-last plavix dose 12/10
-plan for PEG tube placement tomorrow, will check AM coags
-Reviewed cross-sectional imaging from 2021 with surgery, small hiatal hernia, likely DHT was difficult to pass due to tortuous esophagus? No need to repeat imaging prior to procedure tomorrow
Called patient's , Tiffany, and updated her on plan.
Subjective
Subjective
Date of Service: December 14, 2024
Patient seen in follow-up. No overnight events. Strict NPO, plan for PEG tomorrow.
Objective
Data Reviewed
Laboratory Data:
Laboratory Results
PT 12.9 Sec (11.4-14.6) 12/09/24 02:27
INR 0.95 12/09/24 02:27
APTT 29.1 Sec (23.4-35.0) 12/09/24 02:27
Magnesium 1.8 mg/dl (1.6-2.3) 12/13/24 05:57
Total Bilirubin 1.0 mg/dl (0.2-1.3) 12/09/24 02:27
AST 30 U/L (17-59) 12/09/24 02:27
ALT 19 U/L (0-50) 12/09/24 02:27
Alkaline Phosphatase 65 U/L (38-126) 12/09/24 02:27
Vital Signs and I&O:
Vital Signs
Temp Pulse Resp BP Pulse Ox
98.1 F 94 22 157/82 98
12/14/24 03:08 12/14/24 03:08 12/14/24 03:08 12/14/24 03:08 12/14/24 03:08
I&O
12/13/24 12/14/24 12/15/24
06:59 06:59 06:59
Intake Total 300 / 300 530 / 530
Balance 300 / 300 530 / 530
Physical Exam
Physical Exam
HEENT: Other (Aphasic)
GI: Soft, Non Distended and Normal Bowel Sounds
Neuro: Other (aphasic, right-sided weakness)
[2024-12-14 08:26] LABS: Blood Urea Nitrogen 22 mg/dl (9-20); Calcium 8.7 mg/dl (8.4-10.2); Carbon Dioxide 18 mmol/L (22-30); Chloride 106 mmol/L (98-107); Estimated Creatinine Clearance 78 ml/min; Glucose 227 mg/dl (70-99); Magnesium 1.8 mg/dl (1.6-2.3); Potassium 4.0 mmol/L (3.5-5.1); Sodium 140 mmol/L (135-145); eGFR > 60.00
--- NOTE | 2024-12-14 08:39 | W.PN.HOSP.TC ---
Today's Communication/Plan
-
Continue with rectal aspirin
Plan for PEG tube tomorrow
Renewed IV bicarb drip
Trend labs
Assessment / Plan
Assessment / Plan
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
#Cerebrovascular disease
- Suspect ASCVD driven event within the left Jim-cerebrum/basal ganglia/thalamus with symptoms and Hx
- Initial CT scan without any acute findings, CTA showed carotid stenosis and bilateral M1-2 stenosis
- Repeat CT head showed signs of left basal ganglia and swan radiata infarct, deficits worsened
- Second repeat of CT today demonstrates signs of evolving infarct, no ICH seen
- Was unable to tolerate MRI here due to agitation, inability to follow direction
- Recommended for DAPT, statin however unable to tolerate p.o. as below
- NIHSS in the range of 16-20 at this time
Plan
- Continue with rectal aspirin pending PEG placement
- Resume Plavix and high intensity statin via PEG
- BP goal normotension, blood glucose control
- Monitor neurochecks and NIHSS
- Monitor tele
#Oropharyngeal dysphagia
#Aspiration
- Likely related to recent suspected CVA, evaluated by THERMODYNAMIC PHYSICIST today
- Recommended regular diet however nursing with concerns of aspirating thin liquids
- VSE today with aspiration to all consistencies, possibly affected by Haldol he has received
- Continue with strict n.p.o. status, start DHT tube feeds with Jevity, consult nutrition
- GI consulted, planning for PEG tube on 12/15
#Anion gap metabolic acidosis
- CO2 on morning BMP was 8, VBG with pH 7.27 and low pCO2, AG 20
- Suspect this is associated with poor intake, starvation ketosis
- Trend BMP on IV bicarbonate + 1/2NSS
- Planning for tube feeding as above
#Hypokalemia
- Due to lack of oral intake
- Trend BMP and mag levels
#Leukocytosis
#CML
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
- Antibiotics deferred on arrival, no obvious infectious findings at this time
- Differential without mention of basophils, would expect these to be elevated
- Will trend CBC and temperature curve off antibiotics for now
#CAD s/p PCI x 6
#Dyslipidemia
- Home regimen includes DAPT with aspirin and Plavix, metoprolol tartrate twice daily
- Not currently on statin therapy as last lipid panel with LDL near 39, is on ezetimibe
- Follow-up repeat lipid panel as above, consider starting statin
- No signs of ACS at this time
#NIDDM
- A1c 8.7%; no known microvascular disease though likely associated with PAD
- Home regimen includes metformin and saxagliptin; will increase metformin to 1 g twice daily at discharge
- Was transition to ISS with Accu-Cheks while inpatient
- Follow-up A1c as above, BG goal 140-180 here
#Iatrogenic hypothyroidism
#S/P thyroidectomy
- Home regimen includes levothyroxine 150 mcg daily
- No signs or symptoms of thyroid dysfunction at this time
#Primary hypertension
- Home regimen includes amlodipine, metoprolol tartrate, losartan
- No known history of hypertensive systemic disease, may be associated with possible CVA here
- Will transition from metoprolol to tartrate 100 mg daily to carvedilol 12.5 mg twice daily for better antihypertensive effect
- Continue with remainder of home regimen and monitor vitals
- Blood pressure goal normotension
#GERD
- No known history of Suarez's esophagus or erosive disease
- Not currently on PPI or antihistamine
#Dementia
#Behavioral disturbances
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
- Developed agitation for which as needed IM Haldol was ordered
- Continue to monitor, proceed with delirium precautions
- Avoid benzodiazepines for delirium
Diet: Regular
Thromboprophylaxis: SQ Lovenox
CODE STATUS: Full code
Disposition: Acute rehab when medically stable
Discussed with neurology
updated at the bedside daily
Anticipated Discharge: > 48 hours
Subjective/Interval History
-
Date of Service: December 14, 2024
Seen examined at the bedside. No acute events reported overnight. Tachycardic though otherwise AFVSS
Patient seems more alert this morning, opening eyes and responding to questions. Remains flaccid on the right side
ROS remains limited. Bicarbonate down to 18 on morning BMP
Objective Data
-
Labs:
Laboratory Results
12/14/24
07:41
WBC Pending
Hgb Pending
Hct Pending
Plt Count Pending
Sodium 140
Potassium 4.0
Chloride 106
Carbon Dioxide 18 L
BUN 22 H
Creatinine 0.6 L
Glucose 227 H
Calcium 8.7
Vital Signs:
Vital Signs
Temp Pulse Resp BP Pulse Ox
98.2 F 125 18 152/85 97
12/14/24 07:13 12/14/24 07:13 12/14/24 07:13 12/14/24 07:13 12/14/24 07:13
I&O
12/13/24 12/14/24 12/15/24
06:59 06:59 06:59
Intake Total 300 / 300 530 / 530
Balance 300 / 300 530 / 530
Review of Systems
-
Unable to obtain full review of systems at this time due to: Dementia and Acuity
Physical Exam
-
General: Well Developed, No Apparent Distress and Appears Chronically Ill
HEENT: Normocephalic, Atraumatic, Moist Mucous Membranes and Anicteric
Respiratory: Clear to Auscultation and Non Labored Respirations; Negative Accessory Resp Muscle Use
Cardiac: Regular Rhythm, S1/S2 and Tachycardic; Negative Murmur, Rub or Gallop
GI: Soft, Nontender, Nondistended and Normal Bowel Sounds
Musculoskeletal: No Clubbing, No Cyanosis and No Edema
Skin: Warm and Dry; Negative Rash
Neuro: Awake, Alert, Oriented and Other (0/5 MMS to the right sided extremities, facial droop present)
Data Reviewed
-
Labs: Labs Reviewed by me, Discussed with Nurse and Discussed with Patient
[2024-12-14] MEDS: ASPIRIN 300 MG RECTAL (08:42)
[2024-12-14 09:49] LABS: Hematocrit 33.6 % (39.0-52.0); Hemoglobin 11.2 g/dL (13.0-18.0); Mean Corp Hgb Conc. 33.3 g/dL (33.0-37.0); Mean Corpuscular Volume 89.8 fL (80.0-94.0); Platelet Count 158 10^3/uL (130-400); Red Cell Dist. Width 14.6 % (11.5-14.5)
[2024-12-14] MEDS: COREG PO ×2 (10:07→20:33)
[2024-12-14] MEDS: FEOSOL PO (10:07)
[2024-12-14] MEDS: FOLVITE PO ×2 (10:07→20:33)
[2024-12-14] MEDS: PLAVIX PO (10:08)
[2024-12-14] MEDS: MIRALAX PO (10:08)
[2024-12-14] MEDS: VITAMIN D3 (cholecalciferol) PO (10:09)
[2024-12-14] MEDS: VITAMIN C PO (10:09)
[2024-12-14] MEDS: MAGNESIUM SULFATE 102 GRAMS IV (10:10)
[2024-12-14] MEDS: DESENEX/MITRAZOL/ZEASORB 1 APPLIC TOPICAL (10:20)
[2024-12-14] MEDS: NOVOLOG FLEXPEN-LOW RESISTANCE SC (10:33)
[2024-12-14] MEDS: SODIUM BICARBONATE 1100 MEQ IV (11:28)
[2024-12-14 11:59] VITALS: BP 144/76
[2024-12-14 12:09] LABS: Glucose - Point of Care 314 mg/dl (70-99)
[2024-12-14] MEDS: NOVOLOG FLEXPEN-LOW RESISTANCE 4 UNITS SC (12:11)
[2024-12-14 13:41] LABS: Absolute Neutrophils -Man Diff 18.1 10^3/uL (1.4-6.5)
[2024-12-14 13:42] LABS: Platelets Checked YES
[2024-12-14 13:48] LABS: Normal RBC Morphology No
[2024-12-14 13:49] LABS: Acanthocytes FEW; Burr Cells FEW; Target Cells FEW
[2024-12-14 13:50] LABS: Total Cells Counted 100
[2024-12-14 15:00] VITALS: BP 140/89
--- NOTE | 2024-12-14 16:15 | W.PN.NEURO.1 ---
Addendum entered and electronically signed by Bartolome Welsh MD 12/14/24 16:26:
The plan is to give aspirin 81 mg daily, Plavix 75 mg daily and atorvastatin 40 mg daily once the PEG tube is placed.
I had a detailed discussion with the patient's regarding assessment and the management plan, and she verbalized understanding of her discussion.
Original Note:
Today's Communication / Plan
-
CT head was done yesterday showed a subacute infarct in the left swan radiata.
- Patient is not able to tolerate PO, so should given ASA rectally.
- Goal normotension
- Continue PT/OT and speech therapy
- Agree with consultation with GI for possible PEG tube placement
Neuro Assessment/Plan
Assessment
The patient has severe aphasia and right sided weakness. CT head findings are suspicious for a developing area of acute or subacute ischemia in the left periventricular swan radiata/superior margin of the left basal ganglia.
MRI brain has not been completed.
Plan
-Still awaiting MRI brain, if unable to obtain can get CT head
-Pt is not able to tolerate PO, so should start ASA rectally today
-Should resume DAPT when able to get medications
-goal normotension
-goal normoglycemia
-continue PT/OT and speech therapy
-agree with consultation with GI for possible peg tube placement
Subjective/Objective
Subjective Data
Date of Service: December 14, 2024
The patient has severe aphasia and right-sided weakness. The patient is more alert today and is able to follow some verbal commands. He still has severe expressive aphasia amd the strength in the right upper and lower extremities is about 2/5.
The patient also has right-sided facial droop.
CT head was done yesterday showed a subacute infarct in the left swan radiata.
MRI of the brain could not be done because patient could not tolerate the test.
- Patient is not able to tolerate PO, so should given ASA rectally. The plan is to give aspirin, Plavix and atorvastatin after the PEG tube placement.
- Goal normotension
- Continue PT/OT and speech therapy
- Agree with consultation with GI for possible PEG tube placement
Objective Data
Vital Signs
Temp Pulse Resp BP Pulse Ox
37.2 C 115 20 140/89 98
12/14/24 11:59 12/14/24 15:00 12/14/24 15:00 12/14/24 15:00 12/14/24 15:00
Lab Results
12/14/24 07:41
12/14/24 07:41
PT 12.9 Sec (11.4-14.6) 12/09/24 02:27
INR 0.95 12/09/24 02:27
APTT 29.1 Sec (23.4-35.0) 12/09/24 02:27
Sodium 140 mmol/L (135-145) 12/14/24 07:41
Potassium 4.0 mmol/L (3.5-5.1) 12/14/24 07:41
BUN 22 mg/dl (9-20) H 12/14/24 07:41
Glucose 227 mg/dl (70-99) H 12/14/24 07:41
Calcium 8.7 mg/dl (8.4-10.2) 12/14/24 07:41
LDL Cholesterol, Calc 68 mg/dl 12/10/24 06:38
Vitamin B12 669 pg/ml (239-931) 12/10/24 06:38
Patient Allergies
abciximab Allergy (Verified 12/09/24 02:49)
problems with blood levels
hydralazine Allergy (Verified 12/09/24 02:49)
Unknown
morphine Allergy (Verified 12/09/24 02:49)
OD at level dose per patient
oxycodone (From Percocet) Allergy (Verified 12/09/24 02:49)
Migranes
lorazepam (From Ativan) Adverse Reaction (Severe, Verified 12/09/24 15:17)
Unknown
Vital Signs and Labs
-
Vital Signs and Labs:
Vital Signs
Temp Pulse Resp BP Pulse Ox
37.2 C 115 20 140/89 98
12/14/24 11:59 12/14/24 15:00 12/14/24 15:00 12/14/24 15:00 12/14/24 15:00
Lab Results
12/14/24 07:41
12/14/24 07:41
PT 12.9 Sec (11.4-14.6) 12/09/24 02:27
INR 0.95 12/09/24 02:27
APTT 29.1 Sec (23.4-35.0) 12/09/24 02:27
Sodium 140 mmol/L (135-145) 12/14/24 07:41
Potassium 4.0 mmol/L (3.5-5.1) 12/14/24 07:41
BUN 22 mg/dl (9-20) H 12/14/24 07:41
Glucose 227 mg/dl (70-99) H 12/14/24 07:41
Calcium 8.7 mg/dl (8.4-10.2) 12/14/24 07:41
LDL Cholesterol, Calc 68 mg/dl 12/10/24 06:38
Vitamin B12 669 pg/ml (239-931) 12/10/24 06:38
Medications
-
Active Medications
Generic Name Dose Route Start Last Admin
Trade Name Freq PRN Reason Stop Dose Admin
Acetaminophen 650 mg 12/09/24 07:41
Acetaminophen 650 Mg Rectal Suppository RECTAL 01/06/25 07:40
Q4HPRN PRN
CHILDRESS, mild pain, or temp >100.4F
Acetaminophen 650 mg 12/09/24 07:41
Acetaminophen 325 Mg Tablet PO 01/06/25 07:40
Q4HPRN PRN
CHILDRESS, mild pain, or temp >100.4F
Amlodipine Besylate 10 mg 12/09/24 18:00 12/13/24 16:38
Amlodipine 10 Mg Tablet PO 01/06/25 17:59 Not Given
QPM BART
Ascorbic Acid 1,000 mg 12/09/24 08:00 12/14/24 10:09
Ascorbic Acid 500 Mg Tablet PO 01/06/25 07:59 Not Given
DAILY BART
Aspirin 81 mg 12/09/24 08:00 12/12/24 07:54
Aspirin 81 Mg Chewable Tablet PO 01/06/25 07:59 Not Given
On Hold: 12/12/24 10:01 DAILY BART
Comment: While NPO
Aspirin 300 mg 12/12/24 10:00 12/14/24 08:42
Aspirin 300 Mg Rectal Suppository RECTAL 01/09/25 09:59 300 mg
DAILY BART Administration
Atorvastatin Calcium 40 mg 12/10/24 18:00 12/13/24 16:37
Atorvastatin (Lipitor) 40 Mg Tablet PO 01/07/25 17:59 Not Given
QPM BART
Carvedilol 12.5 mg 12/09/24 20:00 12/14/24 10:07
Carvedilol 12.5 Mg Tablet PO 01/06/25 19:59 Not Given
BID BART
Cholecalciferol 125 mcg 12/09/24 08:00 12/14/24 10:09
Cholecalciferol (Vitamin D3) 125 Mcg Tablet (5,000 Units) PO 01/06/25 07:59 Not Given
DAILY BART
Clopidogrel Bisulfate 75 mg 12/09/24 08:00 12/14/24 10:08
Clopidogrel 75 Mg Tablet PO 01/06/25 07:59 Not Given
DAILY BART
Dextrose 12.5 grams 12/09/24 07:41
Dextrose 50% (0.5 Grams/Ml) 50 Ml Syringe IV 01/06/25 07:40
[id number] PRN
hypoglycemia
Protocol
Ezetimibe 10 mg 12/09/24 18:00 12/13/24 16:38
Ezetimibe (Zetia) 10 Mg Tablet PO 01/06/25 17:59 Not Given
QPM BART
Enoxaparin Sodium 40 mg 12/09/24 18:00 12/13/24 17:16
Enoxaparin Sodium 40 Mg/0.4 Ml Syringe SC 01/06/25 17:59 40 mg
QPM BART Administration
Ferrous Sulfate 325 mg 12/09/24 08:00 12/14/24 10:07
Ferrous Sulfate 325 Mg Tablet PO 01/06/25 07:59 Not Given
DAILY BART
Folic Acid 1 mg 12/09/24 08:00 12/14/24 10:07
Folic Acid 1 Mg Tablet PO 01/06/25 07:59 Not Given
BID BART
Glucagon 1 mg 12/09/24 07:41
Glucagon 1 Mg Vial IM 01/06/25 07:40
PRN PRN
hypoglycemia
Protocol
Haloperidol Lactate 1 mg 12/10/24 11:01
Haloperidol 5 Mg/Ml 1 Ml Vial IM 01/06/25 13:59
Q4HPRN PRN
agitation/aggression
Sodium Bicarbonate 100 meq/ 1,100 mls @ 90 mls/hr 12/14/24 10:00 12/14/24 11:28
Dextrose/Sodium Chloride IV 1,100 mls
.[id number] BART Administration
Insulin Aspart 0 units 12/14/24 12:00 12/14/24 12:11
Insulin Aspart Low Resistance 300 Units/3 Ml Pen.Injctr SC 01/11/25 11:59 4 units
Q6H BART Administration
Protocol
Levothyroxine Sodium 150 mcg 12/09/24 08:00 12/13/24 23:47
Levothyroxine 150 Mcg Tablet PO 01/06/25 07:59 Not Given
DAILY@0600 BART
Losartan Potassium 100 mg 12/09/24 18:00 12/13/24 16:37
Losartan 100 Mg Tablet PO 01/06/25 17:59 Not Given
QPM BART
Miconazole Nitrate 0 applic 12/12/24 23:45 12/14/24 10:20
Miconazole Powder Bottle TOPICAL 01/09/25 23:44 1 applic
BID BART Administration
Polyethylene Glycol 17 grams 12/09/24 08:00 12/14/24 10:08
Polyethylene Glycol Powder 17 Grams Packet PO 01/06/25 07:59 Not Given
DAILY BART
Quetiapine Fumarate 25 mg 12/09/24 13:44
Quetiapine 25 Mg Tablet PO 01/06/25 13:43
BIDPRN PRN
agitation
Sodium Chloride 0 flush 12/09/24 08:00
Sodium Chloride 0.9% (Flush) Syringe IV 01/06/25 07:59
PER PROTOCOL BART
Home Medications
�Medication �Instructions �Recorded
Vitamin B-12 5 g PO QPM Supplement 11/11/21
amlodipine 10 mg tablet 10 mg PO QPM Blood pressure 11/11/21
ascorbic acid (vitamin C) 1,000 mg 1 g PO DAILY Supplement 11/11/21
tablet (Vitamin C)
clopidogrel 75 mg tablet 75 mg PO DAILY Blood clot 11/11/21
prevention/tx
folic acid 1 mg tablet 1 mg PO BID Supplement 11/11/21
losartan 100 mg tablet 100 mg PO QPM Blood pressure 11/11/21
metformin 500 mg tablet,extended 500 mg PO DAILY Diabetes 11/11/21
release 24 hr
metformin 500 mg tablet,extended 1,000 mg PO QPM Diabetes 11/11/21
release 24hr (osmotic)
metoprolol tartrate 100 mg tablet 100 mg PO DAILY Blood pressure 11/11/21
nitroglycerin 0.4 mg sublingual 0.4 mg sublingual [id number] PRN 11/11/21
tablet chest pain #25 tabs
aspirin 81 mg chewable tablet 81 mg PO DAILY #30 tabs 11/15/21
cholecalciferol (vitamin D3) 125 125 mcg PO DAILY Supplement 12/09/24
mcg (5,000 unit) tablet (Vitamin
D3)
ezetimibe 10 mg tablet 10 mg PO QPM High Cholesterol 12/09/24
ferrous sulfate 325 mg (65 mg 65 mg PO DAILY Supplement 12/09/24
iron) tablet (Iron (ferrous
sulfate))
levothyroxine 150 mcg tablet 150 mcg PO DAILY Thyroid 12/09/24
saxagliptin 5 mg tablet 5 mg PO DAILY Diabetes 12/09/24
[2024-12-14] MEDS: LOPRESSOR 5 MG IV ×2 (16:59→20:28)
[2024-12-14] MEDS: COZAAR PO (17:08)
[2024-12-14] MEDS: NORVASC PO (17:09)
[2024-12-14 18:14] LABS: Glucose - Point of Care 351 mg/dl (70-99)
--- NOTE | 2024-12-14 18:14 | W.PN.UPDATE ---
Update Note
Progress Note Update
Physician cross cover note:
Called by patient's nurse for tachycardia and coughing spells.
Patient seen and examined at bedside, at bedside.
Patient admitted with CVA, confused and cannot provide interval history.
Exam with bilateral rales.
Patient strict n.p.o. for failing swallow
Stat x-ray done showed: Low lung volumes. No focal consolidation, pleural effusion, or pneumothorax. The cardiomediastinal silhouette is normal. Coronary artery calcifications and/or stents. Chronic degenerative changes of the spine. Chronic,
healed right rib fracture deformities.
Patient on metoprolol 100 mg daily at home, ordered carvedilol 12.5 mg twice daily here but patient is not receiving any of his oral meds as he is strict n.p.o.
Ordered Lopressor 5 mg IV every 6 hours with holding parameters.
Plan for PEG tube tomorrow.
[2024-12-14] MEDS: LOVENOX 40 MG SC (18:29)
[2024-12-14] MEDS: ZETIA PO (18:29)
[2024-12-14] MEDS: NOVOLOG FLEXPEN-LOW RESISTANCE 5 UNITS SC (18:30)
[2024-12-14 19:26] VITALS: BP 134/76
[2024-12-14] MEDS: DESENEX/MITRAZOL/ZEASORB TOPICAL (20:33)
[2024-12-14 21:15] LABS: Glucose - Point of Care 312 mg/dl (70-99)
--- NOTE | 2024-12-14 21:39 | W.PN.UPDATE ---
Update Note
Progress Note Update
Reported by the nursing staff that the patient NIH 21 previously 19, changes in score for L leg drift. temp 99.8, bp 146/85, hr 97, RR 20. bs 312.
-On exam Repeated NIH was 19, patient at his baseline and was able to hold his L leg with no drift.
-Insulin coverage added as needed.
-IV Tylenol
-cbc, bmp, mag ordered and will repeat ua.
[2024-12-14] MEDS: OFIRMEV 100 IV (21:58)
[2024-12-14] MEDS: NOVOLOG FLEXPEN 4 UNITS SC (21:59)
[2024-12-14 22:02] LABS: Venous Blood Gas B.E. 8.3 mmol/L (-4 to +4); Venous Blood Gas O2 Sat % 86.1 %
[2024-12-14 22:14] LABS: Hematocrit 28.1 % (39.0-52.0); Hemoglobin 10.0 g/dL (13.0-18.0); Mean Corp Hgb Conc. 35.6 g/dL (33.0-37.0); Mean Corpuscular Volume 83.1 fL (80.0-94.0); Platelet Count 184 10^3/uL (130-400); Red Cell Dist. Width 14.5 % (11.5-14.5)
[2024-12-14 22:16] LABS: Blood Urea Nitrogen 32 mg/dl (9-20); Calcium 8.3 mg/dl (8.4-10.2); Carbon Dioxide 30 mmol/L (22-30); Chloride 104 mmol/L (98-107); Estimated Creatinine Clearance 52 ml/min; Glucose 308 mg/dl (70-99); Magnesium 2.1 mg/dl (1.6-2.3); Potassium 3.3 mmol/L (3.5-5.1); Sodium 144 mmol/L (135-145); eGFR > 60.00
[2024-12-14 23:23] VITALS: BP 141/68
[2024-12-15] VITALS (15 sets, daily range): BP systolic 14–168; BP diastolic 60–89
[2024-12-15 00:13] LABS: Glucose - Point of Care 294 mg/dl (70-99)
[2024-12-15] MEDS: NOVOLOG FLEXPEN-LOW RESISTANCE 3 UNITS SC (00:31)
[2024-12-15] MEDS: SODIUM BICARBONATE 1100 MEQ IV (01:04)
[2024-12-15] MEDS: LOPRESSOR 5 MG IV ×4 (01:47→20:08)
[2024-12-15 01:53] LABS: Urine Character Clear (Clear)
[2024-12-15] MEDS: KCL 160 MEQ IV (02:39)
[2024-12-15 02:47] LABS: Urine Red Blood Cell 0-2 /HPF (0-2); Urine White Cell 0-2 /HPF (0-5)
--- NOTE | 2024-12-15 05:07 | PTCARENOTE ---
pt NIH 21 at 1999. motor L leg scored 3 (none vs gravity), L leg has limited movement. VSS, axillary temp of 99.8, blood sugar 312. EXCEL EXPERT as bedside, NIH 19 pt now able to hold L leg with no drift for 5 seconds. IV Tylenol administered. 4 units of
insulin administered. lab work and UA ordered. plan of care ongoing.
[2024-12-15] MEDS: SYNTHROID PO (06:01)
[2024-12-15 06:08] LABS: Glucose - Point of Care 249 mg/dl (70-99)
[2024-12-15] MEDS: NOVOLOG FLEXPEN-LOW RESISTANCE 2 UNITS SC ×3 (06:10→17:50)
[2024-12-15 08:22] LABS: INR 1.27; PT 16.2 Sec (11.4-14.6)
[2024-12-15 08:25] LABS: Hematocrit 29.4 % (39.0-52.0); Hemoglobin 10.0 g/dL (13.0-18.0); Mean Corp Hgb Conc. 34.0 g/dL (33.0-37.0); Mean Corpuscular Volume 87.2 fL (80.0-94.0); Platelet Count 191 10^3/uL (130-400); Red Cell Dist. Width 14.7 % (11.5-14.5)
[2024-12-15] MEDS: COREG PO ×2 (08:43→20:01)
[2024-12-15] MEDS: DESENEX/MITRAZOL/ZEASORB 1 APPLIC TOPICAL ×2 (08:44→20:02)
[2024-12-15] MEDS: FEOSOL PO (08:44)
[2024-12-15] MEDS: FOLVITE PO ×2 (08:44→20:02)
[2024-12-15] MEDS: MIRALAX PO (08:44)
[2024-12-15] MEDS: ASPIRIN 300 MG RECTAL (08:45)
[2024-12-15] MEDS: VITAMIN C PO (08:45)
[2024-12-15] MEDS: VITAMIN D3 (cholecalciferol) PO (08:45)
[2024-12-15] MEDS: PLAVIX PO (08:45)
[2024-12-15 08:58] LABS: Blood Urea Nitrogen 26 mg/dl (9-20); Calcium 8.6 mg/dl (8.4-10.2); Carbon Dioxide 27 mmol/L (22-30); Chloride 109 mmol/L (98-107); Estimated Creatinine Clearance 67 ml/min; Glucose 249 mg/dl (70-99); Magnesium 2.0 mg/dl (1.6-2.3); Potassium 3.4 mmol/L (3.5-5.1); Sodium 148 mmol/L (135-145); eGFR > 60.00
[2024-12-15 09:03] LABS: Absolute Neutrophils -Man Diff 21.4 10^3/uL (1.4-6.5); Normal RBC Morphology Yes; Platelets Checked Yes; Total Cells Counted 100
--- NOTE | 2024-12-15 10:10 | OR.RPT ---
Operative Report
Operative Report
Patient Name: Chaitanya Willard
: 1940
Date of Operation: 12/15/2024
Preoperative Diagnosis: Need for feeding access
Postoperative Diagnosis: Same
Procedure(s):
Percutaneous endoscopic gastrostomy
Surgeon(s):
Dr. Villalpando
Endoscopist(s):
Dr. Jones
Anesthesia: General
Estimated Blood Loss: 3 cc
Urine Output: None
Drains/Lines/Implants: 20 [place] PEG tube
Specimens: None
Indication/Findings at the time of surgery:
Please see GI notes. Briefly: Multiple ulcers noted in the duodenum, the largest was proximally in D1/D2 with a fairly large clot which was injected and cauterized with gold probe. The patient also was noted to have a distal Schatzki's ring which
tore slightly with passage of the PEG tube bumper, this was clipped closed.
Details of the operation:
After inducing general anesthesia and placement of a mouth guard, an upper endoscopy was performed by the assistant child care teacher (see their note for further details) an appropriate site for the PEG tube was identified near the left costal margin. This
was confirmed by good one-to-one, transillumination as well as a safe track technique. The overlying skin was infiltrated with lidocaine and a small stab incision was made. The introducer needle was inserted through the stab incision, abdominal
wall and into the stomach. This required 1 pass. The blue guidewire was inserted through the sheath and was captured by an endoscopic snare. A 20 [place] PEG tube was then advanced along the tract. There was some resistance at the skin but
resolved after slightly increasing our incision. The external bumper and tube feeding attachment were placed. The tube was noted to be 3.5 cm at the skin. There was minimal blood loss at the PEG tube site. We did note a small mucosal tear at the
level of a Schatzki's ring in the distal esophagus which likely occurred during passage of the PEG tube bumper. There was some small bleeding but this stopped after clip closure of the tear. The patient returned to the recovery room in stable
condition. Sponge and instrument counts were correct. No specimen sent to pathology from our portion of the procedure.
I was the attending physician and performed the procedure with no assistance. I was present for all portions of the case
Mustapha Villalpando MD
[2024-12-15 10:33] LABS: Glucose - Point of Care 294 mg/dl (70-99)
[2024-12-15] MEDS: D5W 1000 IV (11:49)
[2024-12-15] MEDS: PROTONIX 100 IV ×2 (11:49→21:23)
[2024-12-15 12:05] LABS: Glucose - Point of Care 231 mg/dl (70-99)
--- NOTE | 2024-12-15 12:31 | W.PN.HOSP.TC ---
Today's Communication/Plan
-
Monitor vital signs see plan
Status post PEG tube today
EGD showed gastric ulcer, continue with PPI drip
Hydralazine as needed for now
Once able to use the tube then we will start p.o. meds
Monitor sodium
Discussed with spouse at bedside
Assessment / Plan
Assessment / Plan
General: Well Developed, No Apparent Distress and Appears Chronically Ill
HEENT: Normocephalic, Atraumatic, Moist Mucous Membranes and Anicteric
Respiratory: Clear to Auscultation and Non Labored Respirations; Negative Accessory Resp Muscle Use
Cardiac: Regular Rhythm, S1/S2 and Tachycardic; Negative Murmur, Rub or Gallop
GI: Soft, Nontender, Nondistended and Normal Bowel Sounds
Musculoskeletal: No Edema
Skin: Warm and Dry; Negative Rash
Neuro: Awake, Alert, Oriented and Other (0/5 MMS to the right sided extremities, facial droop present)
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
#Cerebrovascular disease
- Suspect ASCVD driven event within the left Jim-cerebrum/basal ganglia/thalamus with symptoms and Hx
- Initial CT scan without any acute findings, CTA showed carotid stenosis and bilateral M1-2 stenosis
- Repeat CT head showed signs of left basal ganglia and swan radiata infarct, deficits worsened
- Second repeat of CT today demonstrates signs of evolving infarct, no ICH seen
- Was unable to tolerate MRI here due to agitation, inability to follow direction
- Recommended for DAPT, statin however unable to tolerate p.o. as below
- NIHSS waxes and wanes
Plan
- Continue with rectal aspirin pending PEG placement
- Resume Plavix and high intensity statin via PEG
- BP goal normotension, blood glucose control
- Monitor neurochecks and NIHSS
- Monitor tele
#Oropharyngeal dysphagia
#Aspiration
- Likely related to recent suspected CVA, evaluated by COMMERCIAL DRAFTER
- Recommended regular diet however nursing with concerns of aspirating thin liquids
- VSE today with aspiration to all consistencies, possibly affected by Haldol he has received
- Continue with strict n.p.o. status, start DHT tube feeds with Lina, consult nutrition
- GI consulted, s/p PEG tube on 12/15. On EGD with hiatal hernia and gastric ulcer. Now on PPI drip. Per GI continue with PPI drip for 72 hours and then PPI daily
tube feed check tomorrow
#Anion gap metabolic acidosis
- CO2 on morning BMP was 8, VBG with pH 7.27 and low pCO2, AG 20
- Suspect this is associated with poor intake, starvation ketosis
Resolved. DC further bicarbonate drip
- Planning for tube feeding as above
Hyponatremia likely secondary dehydration
Start D5 water
Repeat sodium later today
#Hypokalemia
- Due to lack of oral intake
- Trend BMP and mag levels
#Leukocytosis
#CML
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
- Antibiotics deferred on arrival, no obvious infectious findings at this time
- Differential without mention of basophils, would expect these to be elevated
- Will trend CBC and temperature curve off antibiotics for now
#CAD s/p PCI x 6
#Dyslipidemia
- Home regimen includes DAPT with aspirin and Plavix, metoprolol tartrate twice daily
- Not currently on statin therapy as last lipid panel with LDL near 39, is on ezetimibe
- Follow-up repeat lipid panel as above, consider starting statin
- No signs of ACS at this time
#NIDDM
- A1c 8.7%; no known microvascular disease though likely associated with PAD
- Home regimen includes metformin and saxagliptin; will increase metformin to 1 g twice daily at discharge
- Was transition to ISS with Accu-Cheks while inpatient. Given recent stroke and uncontrolled diabetes, will start Lantus. 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
#Iatrogenic hypothyroidism
#S/P thyroidectomy
- Home regimen includes levothyroxine 150 mcg daily
- No signs or symptoms of thyroid dysfunction at this time
#Primary hypertension
- Home regimen includes amlodipine, metoprolol tartrate, losartan
Hydralazine as needed for now since n.p.o.
- Continue with remainder of home regimen and monitor vitals
- Blood pressure goal normotension
#GERD
- No known history of Suarez's esophagus or erosive disease
- Not currently on PPI or antihistamine
#Dementia
#Behavioral disturbances
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
- Developed agitation for which as needed IM Haldol was ordered
- Continue to monitor, proceed with delirium precautions
- Avoid benzodiazepines for delirium
Thromboprophylaxis: SQ Lovenox
CODE STATUS: Full code
Disposition: Acute rehab when medically stable
updated at the bedside
I spent a total of 52 minutes with the patient or on the floor. More than 50% of this time involved counseling and coordination of care.
Anticipated Discharge: > 48 hours
Subjective/Interval History
-
Date of Service: December 15, 2024
no pain
Objective Data
-
Labs:
Laboratory Results
12/15/24 12/15/24
07:41 15:00
WBC 25.8 H
Hgb 10.0 L
Hct 29.4 L
Plt Count 191
PT 16.2 H
INR 1.27
Sodium 148 H Pending
Potassium 3.4 L
Chloride 109 H
Carbon Dioxide 27
BUN 26 H
Creatinine 0.7
Glucose 249 H
Calcium 8.6
Vital Signs:
Vital Signs
Temp Pulse Resp BP Pulse Ox
99.1 F 88 16 143/77 97
12/15/24 11:37 12/15/24 11:37 12/15/24 11:37 12/15/24 11:37 12/15/24 10:51
I&O
12/14/24 12/15/24 12/16/24
06:59 06:59 06:59
Intake Total 530 / 530
Balance 530 / 530
--- NOTE | 2024-12-15 15:03 | CM ---
Had Peg tube placement today.
Will need PT OT reordered postop.
PT OT indicated acute rehab.
Tube feeding to start .
PLAN To acute rehab if accepted
[2024-12-15] MEDS: COZAAR PO (17:25)
[2024-12-15] MEDS: NORVASC PO (17:26)
[2024-12-15 17:46] LABS: Glucose - Point of Care 247 mg/dl (70-99)
[2024-12-15] MEDS: LOVENOX 40 MG SC (17:50)
[2024-12-15] MEDS: ZETIA PO (17:57)
[2024-12-15 19:07] LABS: Sodium 142 mmol/L (135-145)
[2024-12-15 20:08] LABS: Glucose - Point of Care 257 mg/dl (70-99)
[2024-12-15 21:49] LABS: Glucose - Point of Care 390 mg/dl (70-99)
[2024-12-15] MEDS: LANTUS 0.05 UNITS SC (21:50)
[2024-12-16] VITALS (8 sets, daily range): BP systolic 133–161; BP diastolic 62–87; PULSE 77–78; O2SAT 98
[2024-12-16 00:14] LABS: Glucose - Point of Care 324 mg/dl (70-99)
[2024-12-16] MEDS: NOVOLOG FLEXPEN-LOW RESISTANCE 4 UNITS SC (00:14)
[2024-12-16 01:05] LABS: Sodium 145 mmol/L (135-145)
[2024-12-16] MEDS: LOPRESSOR 5 MG IV ×2 (02:01→08:53)
[2024-12-16] MEDS: SYNTHROID PO (06:40)
[2024-12-16 06:41] LABS: Glucose - Point of Care 239 mg/dl (70-99)
[2024-12-16] MEDS: NOVOLOG FLEXPEN-LOW RESISTANCE 2 UNITS SC ×3 (06:41→17:24)
[2024-12-16 07:34] LABS: Hematocrit 28.4 % (39.0-52.0); Hemoglobin 9.9 g/dL (13.0-18.0); Mean Corp Hgb Conc. 34.9 g/dL (33.0-37.0); Mean Corpuscular Volume 85.0 fL (80.0-94.0); Platelet Count 216 10^3/uL (130-400); Red Cell Dist. Width 14.6 % (11.5-14.5)
[2024-12-16 07:56] LABS: Blood Urea Nitrogen 21 mg/dl (9-20); Calcium 8.6 mg/dl (8.4-10.2); Carbon Dioxide 27 mmol/L (22-30); Chloride 109 mmol/L (98-107); Estimated Creatinine Clearance 78 ml/min; Glucose 240 mg/dl (70-99); Magnesium 2.0 mg/dl (1.6-2.3); Potassium 3.3 mmol/L (3.5-5.1); Sodium 146 mmol/L (135-145); eGFR > 60.00
[2024-12-16 08:37] LABS: Absolute Neutrophils -Man Diff 22.9 10^3/uL (1.4-6.5); Anisocytosis Slight; Normal RBC Morphology No; Platelets Checked Yes; Total Cells Counted 100
[2024-12-16] MEDS: D5W 1000 IV (08:50)
[2024-12-16] MEDS: KCL 270 MEQ IV (08:53)
[2024-12-16] MEDS: VITAMIN D3 (cholecalciferol) PO (09:02)
[2024-12-16] MEDS: COREG PO (09:02)
[2024-12-16] MEDS: PLAVIX PO (09:02)
[2024-12-16] MEDS: MIRALAX PO (09:02)
[2024-12-16] MEDS: VITAMIN C PO (09:02)
[2024-12-16] MEDS: FEOSOL PO (09:02)
[2024-12-16] MEDS: FOLVITE PO (09:02)
[2024-12-16] MEDS: ASPIRIN 300 MG RECTAL (09:30)
[2024-12-16] MEDS: DESENEX/MITRAZOL/ZEASORB 1 APPLIC TOPICAL ×2 (09:30→20:14)
[2024-12-16] MEDS: PROTONIX 100 IV ×2 (09:30→23:03)
[2024-12-16 11:54] LABS: Glucose - Point of Care 231 mg/dl (70-99)
--- NOTE | 2024-12-16 12:24 | W.PN.HOSP.TC ---
Today's Communication/Plan
-
monitor vitals
see plan
start DAPT now that has PEG tibe
Start tube feeds hold
Restart BP meds through tube
Repeat sodium later today, likely can discontinue D5 water
Continue with insulin, diabetes BOWLING FLOOR DESK CLERK consult
Assessment / Plan
Assessment / Plan
General: Well Developed, No Apparent Distress and Appears Chronically Ill
HEENT: Normocephalic, Atraumatic, Moist Mucous Membranes and Anicteric
Respiratory: Clear to Auscultation and Non Labored Respirations; Negative Accessory Resp Muscle Use
Cardiac: Regular Rhythm, S1/S2 and Tachycardic; Negative Murmur, Rub or Gallop
GI: Soft, Nontender, Nondistended and Normal Bowel Sounds
Musculoskeletal: No Edema
Skin: Warm and Dry; Negative Rash
Neuro: Awake, Alert, Oriented and Other (0/5 MMS to the right sided extremities, facial droop present)
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
#Cerebrovascular disease
- Suspect ASCVD driven event within the left Jim-cerebrum/basal ganglia/thalamus with symptoms and Hx
- Initial CT scan without any acute findings, CTA showed carotid stenosis and bilateral M1-2 stenosis
- Repeat CT head showed signs of left basal ganglia and swan radiata infarct, deficits worsened
- Second repeat of CT today demonstrates signs of evolving infarct, no ICH seen
- Was unable to tolerate MRI here due to agitation, inability to follow direction
- Recommended for DAPT, statin. now with PEG tube. started these meds through tube. neurology for duration of DAPT
- NIHSS waxes and wanes
Plan
- Continue with rectal aspirin pending PEG placement
- Resume Plavix and high intensity statin via PEG
- BP goal normotension, blood glucose control
- Monitor neurochecks and NIHSS
- Monitor tele
#Oropharyngeal dysphagia
#Aspiration
- Likely related to recent suspected CVA, evaluated by SPEECH COMMUNICATION PROFESSOR
- Recommended regular diet however nursing with concerns of aspirating thin liquids
- VSE today with aspiration to all consistencies, possibly affected by Haldol he has received
- Continue with strict n.p.o. status, start DHT tube feeds with Lina, consult nutrition
- GI consulted, s/p PEG tube on 12/15. On EGD with hiatal hernia and gastric ulcer. Now on PPI drip. Per GI continue with PPI drip for 72 hours and then PPI daily
ok to use tube feed; started tube feeds. Monitor electrolytes
#Anion gap metabolic acidosis
- CO2 on morning BMP was 8, VBG with pH 7.27 and low pCO2, AG 20
- Suspect this is associated with poor intake, starvation ketosis
Resolved. DC further bicarbonate drip
- Planning for tube feeding as above
Hyponatremia likely secondary dehydration
Started D5 water
Repeat sodium later today. also now getting water flushes through the tube. Likely will DC D5 water later today
#Hypokalemia
- Due to lack of oral intake
- Trend BMP and mag levels
#Leukocytosis
#CML
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
- Antibiotics deferred on arrival, no obvious infectious findings at this time
- Differential without mention of basophils, would expect these to be elevated
- Will trend CBC and temperature curve off antibiotics for now
#CAD s/p PCI x 6
#Dyslipidemia
- Home regimen includes DAPT with aspirin and Plavix, metoprolol tartrate twice daily
- Not currently on statin therapy as last lipid panel with LDL near 39, is on ezetimibe
- Follow-up repeat lipid panel as above, consider starting statin
- No signs of ACS at this time
#NIDDM
- A1c 8.7%; no known microvascular disease though likely associated with PAD
- Home regimen includes metformin and saxagliptin;
- Was transition to ISS with Accu-Cheks while inpatient. Given recent stroke and uncontrolled diabetes, will start Lantus. Diabetes BOWLING FLOOR DESK CLERK consult
#Iatrogenic hypothyroidism
#S/P thyroidectomy
- Home regimen includes levothyroxine 150 mcg daily
- No signs or symptoms of thyroid dysfunction at this time
#Primary hypertension
- Home regimen includes amlodipine, metoprolol tartrate, losartan
Restarted home regimen since now has PEG
- Continue with remainder of home regimen and monitor vitals
- Blood pressure goal normotension
#GERD
- No known history of Suarez's esophagus or erosive disease
- Not currently on PPI or antihistamine
#Dementia
#Behavioral disturbances
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
- Developed agitation for which as needed IM Haldol was ordered
- Continue to monitor, proceed with delirium precautions
- Avoid benzodiazepines for delirium
Thromboprophylaxis: SQ Lovenox
CODE STATUS: Full code
Disposition: Acute rehab when medically stable
updated at the bedside
I spent a total of 53 minutes with the patient or on the floor. More than 50% of this time involved counseling and coordination of care.
Anticipated Discharge: 24 - 48 hours
Subjective/Interval History
-
Date of Service: December 16, 2024
lethargic
Objective Data
-
Labs:
Laboratory Results
12/16/24 12/16/24 12/16/24
00:32 06:52 14:00
WBC 27.7 H
Hgb 9.9 L
Hct 28.4 L
Plt Count 216
Sodium 145 146 H Pending
Potassium 3.3 L
Chloride 109 H
Carbon Dioxide 27
BUN 21 H
Creatinine 0.6 L
Glucose 240 H
Calcium 8.6
Vital Signs:
Vital Signs
Temp Pulse Resp BP Pulse Ox
98.4 F 86 16 145/78 99
12/16/24 11:00 12/16/24 11:00 12/16/24 11:00 12/16/24 11:00 12/16/24 11:00
I&O
12/15/24 12/16/24 12/17/24
06:59 06:59 06:59
Intake Total 1240 / 1240 720 / 720
Balance 1240 / 1240 720 / 720
--- NOTE | 2024-12-16 12:24 | W.PN.GI.CBS2 ---
Addendum entered and electronically signed by Tiara Jones, 12/16/24 15:29:
The patient was seen and examined by me independently in collaboration with the nurse practitioner.
Past medical history/social history/medications/allergies/family history reviewed.
Lab data and imaging data reviewed.
s/p EGD for PEG placement yesterday with incidental findings of multiple clean based gastric ulcers as well as duodenal ulcer with NBVB with clot, unable to fully dislodge but able to see just distal to the area. The ulcer was injected with epi and
treated with bicap. Also, while placing the PEG, a small mucosal tear was found on his partially obstructing schatzki ring above the hiatal hernia, the defect was closed with a hemostatic clip. Ideally, would repeat EGD in 2 months, but given
patients current health status, it may be not be in his best interest/change his management. I discussed this at length with his , who expressed understanding.
-Hgb dropped from 12 -->11.2 --> 10 -->10 --> 9.9, BUN downtrending, 32 --> 21
-PEG adjusted, pulled back to 5.5 at bumper
-advance TFs slowly
-electrolyte repletion
-ASA/Plavix resumed
-PPI gtt x 72 hours, then twice daily x8 weeks through PEG, then daily indefinitely
-Patients is aware to contact me should she want to pursue repeat EGD in the future
GI will sign off, please call back if concern for active GI bleeding
Original Note:
Today's Communication / Plan
-
s/p peg with noted small HH tear in Schatzki's ring , gastric ulcer clean base, no bleeding duodenal ulcer with injected and treated with bipolar cautery
peg intact -- pulled back to 5.5 at bumper
K replacement infusion
will start very low dose tube feed at 10ml/hr and advance to goal slowly
follow K, phos and mag
Dr. Jones review with spouse for repeat EGD at some point for follow up pending health status
cont PPI gtt for total of 73yo with noted ulcer on EGD
will review timing with dr. Jones for resuming Eliquis with large ulcer on EGD
discussed with monitor for pt pulling at tube add binder if needed
Assessment / Plan
-
Chaitanya Willard is an 84 y.o. male with pmhx CAD s/p PCI x6, DM2, hypothyroidism, HTN, CML, dementia admitted with right-sided weakness, workup revealing severe narrowing in right P2 segment, treating as acute CVA. Speech and swallow evaluation with
aspiration of thin liquid barium, nectar thick barium and honey thick barium, puree and solids not attempted. MRI brain ordered, still pending. GI consulted for placement of PEG tube.DHT attempted to be placed by GI at bedside, unable to advance
pass 45 and stopped.
12/15/24 Karen EGD
- Small hiatal hernia.
- Non-obstructing and low-grade of narrowing Schatzki ring. Clips
were placed. 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
- With placement of the PEG, a small mucosal tear was found within
the schatzki ring, which was not present on initial intubation
- Non-bleeding gastric ulcers with a clean ulcer base (Pito
Class III).
- A PEG placement was successfully completed.
- Non-bleeding duodenal ulcer. Injected. Treated with bipolar
cautery.
- Non-bleeding duodenal ulcers with a clean ulcer base (Pito
Class III).
- No specimens collected
-s/p peg 12/15
-EGD wit noted small HH tear in Schatzki's ring , gastric ulcer clean base, no bleeding duodenal ulcer with injected and treated with bipolar cautery
-Moderate oral and severe pharyngeal dysphagia in setting of subacute CVA
-hx prior noted HH, schazki's ring, robertson's- per chart
-hypokalemia
other med problems:
CAD with prior stenting, GERD, HTN, hypercholesterolemia, hypothyroidism, prior thyroidectomy, colon polyps with prior TV polyp with high grade dysplasia
PLAN:
s/p peg with noted small HH tear in Schatzki's ring , gastric ulcer clean base, no bleeding duodenal ulcer with injected and treated with bipolar cautery
peg intact -- pulled back to 5.5 at bumper
K replacement infusion
will start very low dose tube feed at 10ml/hr and advance to goal slowly
follow K, phos and mag
Dr. Jones review with spouse for repeat EGD at some point for follow up pending health status
cont PPI gtt for total of 73yo with noted ulcer on EGD
will review timing with dr. Jones for resuming Eliquis with large ulcer on EGD
discussed with monitor for pt pulling at tube add binder if needed
Subjective
Subjective
Date of Service: December 16, 2024
pt doing well post peg, NPO
Objective
Data Reviewed
Laboratory Data:
Laboratory Results
12/16/24 06:52
Laboratory Results
PT 16.2 Sec (11.4-14.6) H 12/15/24 07:41
INR 1.27 12/15/24 07:41
APTT 29.1 Sec (23.4-35.0) 12/09/24 02:27
Phosphorus 3.3 mg/dl (2.5-4.5) 12/16/24 06:52
Magnesium 2.0 mg/dl (1.6-2.3) 12/16/24 06:52
Total Bilirubin 1.0 mg/dl (0.2-1.3) 12/09/24 02:27
AST 30 U/L (17-59) 12/09/24 02:27
ALT 19 U/L (0-50) 12/09/24 02:27
Alkaline Phosphatase 65 U/L (38-126) 12/09/24 02:27
Vital Signs and I&O:
Vital Signs
Temp Pulse Resp BP Pulse Ox
98.4 F 86 16 145/78 99
12/16/24 11:00 12/16/24 11:00 12/16/24 11:00 12/16/24 11:00 12/16/24 11:00
I&O
12/15/24 12/16/24 12/17/24
06:59 06:59 06:59
Intake Total 1240 / 1240 720 / 720
Balance 1240 / 1240 720 / 720
Physical Exam
Physical Exam
HEENT: Anicteric and Moist mucous membranes
Cardiology: Normal Sinus Rhythm
Pulmonary: Clear
GI: Soft, Non Distended, Non Tender and Other (peg intact -- bumper pulled back to 5.5 at end of bumper, very minimal dried blood on split gauze )
Extremities: No Edema
Neuro: Other (non verbal on exam, right side weakness )
--- NOTE | 2024-12-16 12:52 | PN.DE.MGMTRT ---
Insulin Management
- -
12/17/2024: Diabetes Management Consult
84 year old male with Acute CVA of the left basal ganglia and swan radiata.
PMH: CAD s/p PCI x6, DM2, hypothyroidism, HTN, CML, dementia and T2DM. Patient was admitted with right-sided weakness, workup revealing severe narrowing in right P2 segment, treating as acute CVA.
Was taking Saxagliptin 5mg daily, Metformin 500 mg in AM and 1000 mg in PM prior to admission. A1C 8.7%, Cr 0.6, eGFR >60
Patient A/A, non-verbal on exam, noted for right sided weakness and facial droop, unable to discuss diabetes care plan. at bedside, very supportive.
states patient was not testing his blood sugars or adhering to any specific diet.
Patient was noted for Oropharyngeal dysphagia with concerns of aspirating thin liquids. He underwent VSE and was noted for aspiration to all consistencies.
Glucose has been elevated since admission. Diabetes regimen includes Lantus 8 units @ HS and low corrective insulin Q6 hrs.
He is s/p PEG tube placement with initiation of tube feeds at 10 ml/ hr.
12/15 glucose range was 231 to 294, trended up to 390 @ HS, received Lantus 8 units, Fasting glucose was 240 V.
Will increase Lantus to 12 units and start NovoLog 6 units Q6 hrs. Cont low corrective insulin Q6 hrs. Anticipate higher insulin requirements once TF are at goal.
Discussed with Nurse. Cont to follow
Diabetes History
- -
Type of Diabetes: 2 requiring insulin
Pre-Admission Diabetes Regimen
12/16/24
06:52
Creatinine 0.6 L
Lab Results
Hemoglobin A1c 8.7 % (4.0-5.6) H 12/10/24 06:38
Insulin Pump Settings
IP Diabetes Regimen
12/15/24 12/15/24 12/15/24
17:44 20:07 21:48
Glucose
POC Glucose 247 H 257 H 390 H
12/16/24 12/16/24 12/16/24
00:12 06:40 06:52
Glucose 240 H
POC Glucose 324 H 239 H
12/16/24
11:53
Glucose
POC Glucose 231 H
Patient Education
[2024-12-16] MEDS: LOPRESSOR 50 MG TUBE (13:01)
[2024-12-16] MEDS: PLAVIX 75 MG TUBE (13:02)
[2024-12-16] MEDS: NOVOLOG FLEXPEN 6 UNITS SC ×2 (13:03→17:24)
--- NOTE | 2024-12-16 14:00 | CHAP ---
Msgr. Dev Islas of [facility] in [place] gave Mr. Willard an Apostolic Pardon and the Sacrament of the Sick. Exact time uncertain.
[2024-12-16 14:19] LABS: Sodium 146 mmol/L (135-145)
[2024-12-16] MEDS: COZAAR 100 MG TUBE (17:08)
[2024-12-16] MEDS: LIPITOR 40 MG TUBE (17:09)
[2024-12-16] MEDS: ZETIA 10 MG TUBE (17:09)
[2024-12-16] MEDS: LOVENOX 40 MG SC (17:09)
[2024-12-16] MEDS: NORVASC 10 MG TUBE (17:09)
[2024-12-16 17:24] LABS: Glucose - Point of Care 246 mg/dl (70-99)
[2024-12-16] MEDS: FOLVITE 1 MG TUBE (20:15)
[2024-12-16 22:04] LABS: Glucose - Point of Care 233 mg/dl (70-99)
[2024-12-16] MEDS: LANTUS 0.12 UNITS SC (22:07)
--- NOTE | 2024-12-16 22:18 | PTCARENOTE ---
pt tolerating tube feed. tube feed increased to 20 mL/hr per order at 2119. plan of care ongoing.
[2024-12-17] VITALS (7 sets, daily range): BP systolic 123–155; BP diastolic 61–83; PULSE 116–124; O2SAT 98; BMI 24.7
[2024-12-17 00:12] LABS: Glucose - Point of Care 303 mg/dl (70-99)
[2024-12-17] MEDS: NOVOLOG FLEXPEN-LOW RESISTANCE 4 UNITS SC ×2 (00:12→12:01)
[2024-12-17] MEDS: NOVOLOG FLEXPEN 6 UNITS SC ×2 (00:16→06:15)
--- NOTE | 2024-12-17 02:24 | DOWNTIME ---
There was a [employer] Client Internal Controls Consultant Downtime on 12/17/2024 from 0100 to 12/17/2024 at 0215. Downtime documentation of patient's care, including medication administrations, has been reconciled in the electronic record per guidelines. Refer to the
patient's paper chart under the miscellaneous tab to see printed paper medication records and downtime forms.
[2024-12-17 03:21] LABS: Glucose - Point of Care 269 mg/dl (70-99)
[2024-12-17 06:14] LABS: Glucose - Point of Care 280 mg/dl (70-99)
[2024-12-17] MEDS: NOVOLOG FLEXPEN-LOW RESISTANCE 3 UNITS SC ×2 (06:14→17:33)
[2024-12-17] MEDS: SYNTHROID 150 MCG TUBE (06:16)
[2024-12-17 08:29] LABS: Hematocrit 29.0 % (39.0-52.0); Hemoglobin 9.4 g/dL (13.0-18.0); Mean Corp Hgb Conc. 32.4 g/dL (33.0-37.0); Mean Corpuscular Volume 90.3 fL (80.0-94.0); Platelet Count 226 10^3/uL (130-400); Red Cell Dist. Width 14.7 % (11.5-14.5)
[2024-12-17] MEDS: FERROUS SULFATE ORAL LIQUID 300 MG TUBE (08:43)
[2024-12-17] MEDS: VITAMIN C 1000 MG TUBE (08:44)
[2024-12-17] MEDS: FOLVITE 1 MG TUBE ×2 (08:44→19:27)
[2024-12-17] MEDS: MIRALAX 17 GRAMS TUBE (08:45)
[2024-12-17] MEDS: PLAVIX 75 MG TUBE (08:46)
[2024-12-17] MEDS: LOPRESSOR 100 MG TUBE (08:46)
[2024-12-17] MEDS: VITAMIN D3 (cholecalciferol) 125 MCG TUBE (08:46)
[2024-12-17] MEDS: DESENEX/MITRAZOL/ZEASORB 1 APPLIC TOPICAL ×2 (08:46→22:15)
--- NOTE | 2024-12-17 09:00 | PN.DE.MGMTRT ---
Insulin Management
- -
12/17/2024: Diabetes Management Consult
84 year old male admitted 12/09 with Acute CVA of the left basal ganglia and swan radiata. Diabetes Management consult 12/16. PMH: CAD s/p PCI x6, DM2, hypothyroidism, HTN, CML, dementia and T2DM. Patient was admitted with right-sided
weakness, workup revealing severe narrowing in right P2 segment, treating as acute CVA. Prior to admission was taking Saxagliptin 5mg daily, Metformin 500 mg in AM and 1000 mg in PM. A1C 8.7%, Cr 0.6, eGFR >60
Patient A/A, non-verbal on exam, noted for right sided weakness and facial droop, unable to discuss diabetes care plan. at bedside, very supportive.
states patient was not testing his blood sugars or adhering to any specific diet.
Patient was noted for Oropharyngeal dysphagia with concerns of aspirating thin liquids. He underwent VSE and was noted for aspiration to all consistencies.
Glucose has been elevated since admission. Diabetes regimen includes Lantus 8 units @ HS and low corrective insulin Q6 hrs.
He is s/p PEG tube placement with initiation of tube feeds at 10 ml/ hr.
12/16 glucose range was 231 to 246, received Lantus 12 units, Fasting glucose was 303.
12/17 Will increase Lantus to 15 units @ HS and NovoLog from 6 units to 10 units Q6 hrs. Cont low corrective insulin Q6 hrs. Anticipate higher insulin requirements once TF are at goal.
Discussed with Nurse. Cont to follow
Diabetes History
- -
Type of Diabetes: 2 requiring insulin
Pre-Admission Diabetes Regimen
Lab Results
Hemoglobin A1c 8.7 % (4.0-5.6) H 12/10/24 06:38
Insulin Pump Settings
IP Diabetes Regimen
12/16/24 12/16/24 12/16/24
11:53 17:22 22:03
POC Glucose 231 H 246 H 233 H
12/17/24 12/17/2425
00:11 03:20 06:12
POC Glucose 303 H 269 H 280 H
Patient Education
[2024-12-17 09:17] LABS: Blood Urea Nitrogen 25 mg/dl (9-20); Calcium 8.5 mg/dl (8.4-10.2); Carbon Dioxide 27 mmol/L (22-30); Chloride 111 mmol/L (98-107); Estimated Creatinine Clearance 59 ml/min; Glucose 233 mg/dl (70-99); Magnesium 2.1 mg/dl (1.6-2.3); Potassium 3.2 mmol/L (3.5-5.1); Sodium 148 mmol/L (135-145); eGFR > 60.00
[2024-12-17] MEDS: KCL ELIXIR 40 MEQ TUBE (10:24)
[2024-12-17] MEDS: PROTONIX 100 IV ×2 (10:24→19:27)
[2024-12-17 10:43] LABS: Absolute Neutrophils -Man Diff 22.2 10^3/uL (1.4-6.5)
[2024-12-17 10:44] LABS: Normal RBC Morphology Yes; Platelets Checked Yes; Total Cells Counted 100
[2024-12-17 11:39] LABS: Glucose - Point of Care 322 mg/dl (70-99)
[2024-12-17] MEDS: NOVOLOG FLEXPEN 10 UNITS SC ×2 (12:01→17:33)
--- NOTE | 2024-12-17 13:45 | W.PN.HOSP.TC ---
Today's Communication/Plan
-
Monitor vital signs see plan
Continue with tube feeds, advance as needed per protocol
Continue with meds through PEG tube
Decrease tube free water flushes
PPI
PT
Repeat sodium later today
Discussed with family at bedside
Assessment / Plan
Assessment / Plan
General: Well Developed, No Apparent Distress and Appears Chronically Ill
HEENT: Normocephalic, Atraumatic, Moist Mucous Membranes and Anicteric
Respiratory: Clear to Auscultation and Non Labored Respirations; Negative Accessory Resp Muscle Use
Cardiac: Regular Rhythm, S1/S2 and Tachycardic; Negative Murmur, Rub or Gallop
GI: Soft, Nontender, Nondistended and Normal Bowel Sounds
Musculoskeletal: No Edema
Skin: Warm and Dry; Negative Rash
Neuro: Awake, Alert, Oriented and Other (0/5 MMS to the right sided extremities, facial droop present)
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
#Cerebrovascular disease
- Suspect ASCVD driven event within the left Jim-cerebrum/basal ganglia/thalamus with symptoms and Hx
- Initial CT scan without any acute findings, CTA showed carotid stenosis and bilateral M1-2 stenosis
- Repeat CT head showed signs of left basal ganglia and swan radiata infarct, deficits worsened
- Second repeat of CT today demonstrates signs of evolving infarct, no ICH seen
- Was unable to tolerate MRI here due to agitation, inability to follow direction
- Recommended for DAPT, statin. now with PEG tube. started these meds through tube. neurology for duration of DAPT
- NIHSS waxes and wanes
Plan
- Resume Plavix and high intensity statin via PEG. Discussed to continue aspirin and Plavix as patient was already on it for cardiac reasons with multiple PCI
- BP goal normotension, blood glucose control
- Monitor neurochecks and NIHSS
- Monitor tele
#Oropharyngeal dysphagia
#Aspiration
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
- Recommended regular diet however nursing with concerns of aspirating thin liquids
- VSE today with aspiration to all consistencies, possibly affected by Haldol he has received
- Continue with strict n.p.o. status, started DHT tube feeds with Jevity
- GI consulted, s/p PEG tube on 12/15. On EGD with hiatal hernia and gastric ulcer. Now on PPI drip. Per GI continue with PPI drip for 72 hours and then PPI daily
ok to use tube feed; started tube feeds. Monitor electrolytes
#Anion gap metabolic acidosis
- CO2 on morning BMP was 8, VBG with pH 7.27 and low pCO2, AG 20
- Suspect this is associated with poor intake, starvation ketosis
Resolved. DC further bicarbonate drip
- Planning for tube feeding as above
Hyponatremia likely secondary dehydration
Repeat sodium later today. also now getting water flushes through the tube which is increased.
#Hypokalemia
- Due to lack of oral intake
- Trend BMP and mag levels
#Leukocytosis
#CML
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
- Antibiotics deferred on arrival, no obvious infectious findings at this time
- Differential without mention of basophils, would expect these to be elevated
- Will trend CBC and temperature curve off antibiotics for now
#CAD s/p PCI x 6
#Dyslipidemia
- Home regimen includes DAPT with aspirin and Plavix, metoprolol tartrate twice daily
- Not currently on statin therapy as last lipid panel with LDL near 39, is on ezetimibe
- Follow-up repeat lipid panel as above, consider starting statin
- No signs of ACS at this time
#NIDDM
- A1c 8.7%; no known microvascular disease though likely associated with PAD
- Home regimen includes metformin and saxagliptin;
- Was transition to ISS with Accu-Cheks while inpatient. Given recent stroke and uncontrolled diabetes, will start Lantus. Diabetes MEDICAL ASSISTANT INSTRUCTOR consult
#Iatrogenic hypothyroidism
#S/P thyroidectomy
- Home regimen includes levothyroxine 150 mcg daily
- No signs or symptoms of thyroid dysfunction at this time
#Primary hypertension
- Home regimen includes amlodipine, metoprolol tartrate, losartan
Restarted home regimen since now has PEG
- Continue with remainder of home regimen and monitor vitals
- Blood pressure goal normotension
#GERD
- No known history of Suarez's esophagus or erosive disease
- Not currently on PPI or antihistamine
#Dementia
#Behavioral disturbances
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
- Developed agitation for which as needed IM Haldol was ordered
- Continue to monitor, proceed with delirium precautions
- Avoid benzodiazepines for delirium
Thromboprophylaxis: SQ Lovenox
CODE STATUS: Full code
Disposition: Acute rehab when medically stable
updated at the bedside
I spent a total of 53 minutes with the patient or on the floor. More than 50% of this time involved counseling and coordination of care.
Anticipated Discharge: 24 - 48 hours
Subjective/Interval History
-
Date of Service: December 17, 2024
lethargic at times
Objective Data
-
Labs:
Laboratory Results
12/17/24 12/17/24
07:04 16:00
WBC 27.8 H
Hgb 9.4 L
Hct 29.0 L
Plt Count 226
Sodium 148 H Pending
Potassium 3.2 L
Chloride 111 H
Carbon Dioxide 27
BUN 25 H
Creatinine 0.8
Glucose 233 H
Calcium 8.5
Vital Signs:
Vital Signs
Temp Pulse Resp BP Pulse Ox
98.9 F 86 16 125/65 98
12/17/24 11:00 12/17/24 11:00 12/17/24 11:00 12/17/24 11:00 12/17/24 11:00
I&O
12/16/24 12/17/24 12/18/24
06:59 06:59 06:59
Intake Total 720 / 720 1680 / 1680
Balance 720 / 720 1680 / 1680
--- NOTE | 2024-12-17 16:17 | CM ---
Peg tube placed tube feedings at 40cc/hr goal is 55cc/hr.
Pt family requested Rob.
Updated referral with Rob to evaluate patient again.
Will need auth .
PLAN To Acute rehab VS SNF.
[2024-12-17] MEDS: ZETIA 10 MG TUBE (17:31)
[2024-12-17 17:32] LABS: Glucose - Point of Care 268 mg/dl (70-99)
[2024-12-17] MEDS: NORVASC 10 MG TUBE (17:32)
[2024-12-17] MEDS: COZAAR 100 MG TUBE (17:32)
[2024-12-17] MEDS: LOVENOX 40 MG SC (17:32)
[2024-12-17] MEDS: LIPITOR 40 MG TUBE (17:32)
[2024-12-17] MEDS: TYLENOL ORAL SOLUTION 650 MG TUBE (17:40)
--- NOTE | 2024-12-17 17:56 | PTCARENOTE ---
Pt w/ productive cough of thick white secretions requiring suctioning. TF increased slowly - currently at 40mL/hr w/ 25 mL flush. Axillary temp 100.3 - given tylenol via PEG tube.
[2024-12-17 20:31] LABS: Sodium 146 mmol/L (135-145)
[2024-12-17] MEDS: LANTUS 0.15 UNITS SC (22:15)
[2024-12-18 00:24] LABS: Glucose - Point of Care 322 mg/dl (70-99)
[2024-12-18] MEDS: NOVOLOG FLEXPEN-LOW RESISTANCE 4 UNITS SC ×3 (00:25→18:00)
[2024-12-18] MEDS: NOVOLOG FLEXPEN 10 UNITS SC ×2 (00:26→05:35)
[2024-12-18] MEDS: SEROQUEL 25 MG TUBE (02:10)
[2024-12-18] MEDS: TYLENOL ORAL SOLUTION 650 MG TUBE ×3 (02:10→21:05)
[2024-12-18 03:27] VITALS: BP 125/62
[2024-12-18] MEDS: PROTONIX 100 IV (04:56)
[2024-12-18 05:31] LABS: Glucose - Point of Care 385 mg/dl (70-99)
[2024-12-18] MEDS: NOVOLOG FLEXPEN-LOW RESISTANCE 5 UNITS SC (05:34)
[2024-12-18] MEDS: SYNTHROID 150 MCG TUBE (06:25)
--- NOTE | 2024-12-18 08:00 | PN.DE.MGMTRT ---
Insulin Management
- -
12/18/2024: Diabetes Management Consult Follow up
84 year old male admitted 12/09 with Acute CVA of the left basal ganglia and swan radiata. Diabetes Management consult 12/16. PMH: CAD s/p PCI x6, DM2, hypothyroidism, HTN, CML, dementia and T2DM. Patient was admitted with right-sided
weakness, workup revealing severe narrowing in right P2 segment, treating as acute CVA. Prior to admission was taking Saxagliptin 5mg daily, Metformin 500 mg in AM and 1000 mg in PM. A1C 8.7%, Cr 0.6, eGFR >60
Patient A/A, non-verbal on exam, noted for right sided weakness and facial droop, unable to discuss diabetes care plan. and daughter at bedside, very supportive.
states patient was not testing his blood sugars or adhering to any specific diet.
Patient was noted for Oropharyngeal dysphagia with concerns of aspirating thin liquids. He underwent VSE and was noted for aspiration to all consistencies.
Glucose has been elevated since admission.
He is s/p PEG tube placement with tube feeds at 55 ml/ hr.
12/18 Glucose range 12/17 268 to 322. Will again increase Lantus to 20 units @ HS and NovoLog from 10 units to 15 units Q6 hrs. Cont low corrective insulin Q6 hrs.
Discussed with Nurse. Cont to follow
Diabetes History
- -
Type of Diabetes: 2 requiring insulin
Pre-Admission Diabetes Regimen
12/17/24
07:04
Creatinine 0.8
Lab Results
Hemoglobin A1c 8.7 % (4.0-5.6) H 12/10/24 06:38
Insulin Pump Settings
IP Diabetes Regimen
12/17/24 12/17/24 12/17/24
07:04 11:38 17:30
Glucose 233 H
POC Glucose 322 H 268 H
12/18/24 12/18/24
00:21 05:30
Glucose
POC Glucose 322 H 385 H
Patient Education
[2024-12-18 08:10] VITALS: BP 143/67
[2024-12-18 08:26] LABS: Blood Urea Nitrogen 29 mg/dl (9-20); Calcium 8.7 mg/dl (8.4-10.2); Carbon Dioxide 29 mmol/L (22-30); Chloride 113 mmol/L (98-107); Estimated Creatinine Clearance 52 ml/min; Glucose 340 mg/dl (70-99); Magnesium 2.1 mg/dl (1.6-2.3); Potassium 3.1 mmol/L (3.5-5.1); Sodium 146 mmol/L (135-145); eGFR > 60.00
[2024-12-18 08:37] LABS: Hematocrit 25.9 % (39.0-52.0); Hemoglobin 8.6 g/dL (13.0-18.0); Mean Corp Hgb Conc. 33.2 g/dL (33.0-37.0); Mean Corpuscular Volume 88.1 fL (80.0-94.0); Platelet Count 223 10^3/uL (130-400); Red Cell Dist. Width 14.9 % (11.5-14.5)
[2024-12-18] MEDS: FERROUS SULFATE ORAL LIQUID 300 MG TUBE (09:07)
[2024-12-18] MEDS: KCL ELIXIR 40 MEQ PO (09:07)
[2024-12-18] MEDS: VITAMIN C 1000 MG TUBE (09:08)
[2024-12-18] MEDS: MIRALAX 17 GRAMS TUBE (09:08)
[2024-12-18] MEDS: LOPRESSOR 100 MG TUBE (09:08)
[2024-12-18] MEDS: FOLVITE 1 MG TUBE ×2 (09:08→19:45)
[2024-12-18] MEDS: PLAVIX 75 MG TUBE (09:09)
[2024-12-18] MEDS: VITAMIN D3 (cholecalciferol) 125 MCG TUBE (09:09)
[2024-12-18] MEDS: DESENEX/MITRAZOL/ZEASORB 1 APPLIC TOPICAL ×2 (09:09→21:07)
[2024-12-18] MEDS: PROTONIX IV 40 MG IV ×2 (09:51→19:44)
[2024-12-18] MEDS: NSS (PRESERVATIVE FREE) 10 ML IV ×2 (09:52→19:44)
[2024-12-18 10:25] LABS: Absolute Neutrophils -Man Diff 24.6 10^3/uL (1.4-6.5); Platelets Checked Yes
[2024-12-18 10:26] LABS: Normal RBC Morphology Yes; Total Cells Counted 100
[2024-12-18 11:10] VITALS: BP 120/58
[2024-12-18 11:45] LABS: Glucose - Point of Care 349 mg/dl (70-99)
[2024-12-18] MEDS: NOVOLOG FLEXPEN 15 UNITS SC ×3 (12:01→23:54)
--- NOTE | 2024-12-18 12:22 | W.PN.HOSP.TC ---
Today's Communication/Plan
-
Monitor vitals
See plan
Continue with tube feeds, increase free water flushes
Monitor sodium
Monitor mental status
Continue with aspirin and Plavix
Decrease Seroquel to 12.5mg as needed. Discussed with nursing that should try mitts prior to giving medications
Assessment / Plan
Assessment / Plan
General: Well Developed, No Apparent Distress and Appears Chronically Ill
HEENT: Normocephalic, Atraumatic, Moist Mucous Membranes and Anicteric
Respiratory: Clear to Auscultation and Non Labored Respirations; Negative Accessory Resp Muscle Use
Cardiac: Regular Rhythm, S1/S2 and Tachycardic; Negative Murmur, Rub or Gallop
GI: Soft, Nontender, Nondistended and Normal Bowel Sounds
Musculoskeletal: No Edema
Skin: Warm and Dry; Negative Rash
Neuro: Awake, Alert, Oriented and Other (0/5 MMS to the right sided extremities, facial droop present)
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
#Cerebrovascular disease
- Suspect ASCVD driven event within the left Jim-cerebrum/basal ganglia/thalamus with symptoms and Hx
- Initial CT scan without any acute findings, CTA showed carotid stenosis and bilateral M1-2 stenosis
- Repeat CT head showed signs of left basal ganglia and swan radiata infarct, deficits worsened
- Second repeat of CT today demonstrates signs of evolving infarct, no ICH seen
- Was unable to tolerate MRI here due to agitation, inability to follow direction
- Recommended for DAPT, statin. now with PEG tube. started these meds through tube. neurology for duration of DAPT
- NIHSS waxes and wanes
Plan
- Resume Plavix and high intensity statin via PEG. Discussed; to continue aspirin and Plavix as patient was already on it for cardiac reasons with multiple PCI
- BP goal normotension, blood glucose control
- Monitor neurochecks and NIHSS
- Monitor tele
#Oropharyngeal dysphagia
#Aspiration
- Likely related to recent suspected CVA, evaluated by [facility]
- Recommended regular diet however nursing with concerns of aspirating thin liquids
- VSE with aspiration to all consistencies, possibly affected by Haldol he has received
- Continue with strict n.p.o. status, started DHT tube feeds with Jevity
- GI consulted, s/p PEG tube on 12/15. On EGD with hiatal hernia and gastric ulcer. Finished PPI drip. Now on PPI twice daily
ok to use tube feed; started tube feeds. Monitor electrolytes
#Anion gap metabolic acidosis
- CO2 on morning BMP was 8, VBG with pH 7.27 and low pCO2, AG 20
- Suspect this is associated with poor intake, starvation ketosis
Resolved. DC further bicarbonate drip
- Planning for tube feeding as above
Hyponatremia likely secondary dehydration
Repeat sodium later today. also now getting water flushes through the tube which is increased.
#Hypokalemia
- Due to lack of oral intake
- Trend BMP and mag levels
#Leukocytosis
#CML
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
- Antibiotics deferred on arrival, no obvious infectious findings at this time
- Differential without mention of basophils, would expect these to be elevated
Leukocytosis, chest x-ray without pneumonia. Monitor
#CAD s/p PCI x 6
#Dyslipidemia
- Home regimen includes DAPT with aspirin and Plavix, metoprolol tartrate twice daily
- Not currently on statin therapy as last lipid panel with LDL near 39, is on ezetimibe
- Follow-up repeat lipid panel as above, consider starting statin
- No signs of ACS at this time
#NIDDM
- A1c 8.7%; no known microvascular disease though likely associated with PAD
- Home regimen includes metformin and saxagliptin;
- Was transition to ISS with Accu-Cheks while inpatient. Given recent stroke and uncontrolled diabetes, continue with Lantus and aspart. Diabetes [employer] consult
#Iatrogenic hypothyroidism
#S/P thyroidectomy
- Home regimen includes levothyroxine 150 mcg daily
- No signs or symptoms of thyroid dysfunction at this time
#Primary hypertension
- Home regimen includes amlodipine, metoprolol tartrate, losartan
Restarted home regimen since now has PEG
- Continue with remainder of home regimen and monitor vitals
- Blood pressure goal normotension
#GERD
- No known history of Suarez's esophagus or erosive disease
- Not currently on PPI or antihistamine
#Dementia
#Behavioral disturbances
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
- Developed agitation for which as needed IM Haldol was ordered
- Continue to monitor, proceed with delirium precautions. Overnight Seroquel given. Decrease Seroquel to 12.5mg as needed. Discussed with nursing that should try mitts prior to giving medications
- Avoid benzodiazepines for delirium
Thromboprophylaxis: SQ Lovenox
CODE STATUS: Full code
Disposition: Acute rehab when medically stable
updated at the bedside
I spent a total of 52 minutes with the patient or on the floor. More than 50% of this time involved counseling and coordination of care.
Anticipated Discharge: 24 - 48 hours
Subjective/Interval History
-
Date of Service: December 18, 2024
denies pain
Objective Data
-
Labs:
Laboratory Results
12/18/24 12/18/24
07:34 16:00
WBC 30.1 H
Hgb 8.6 L
Hct 25.9 L
Plt Count 223
Sodium 146 H Pending
Potassium 3.1 L
Chloride 113 H
Carbon Dioxide 29
BUN 29 H
Creatinine 0.9
Glucose 340 H
Calcium 8.7
Vital Signs:
Vital Signs
Temp Pulse Resp BP Pulse Ox
97.5 F 70 18 120/58 100
12/18/24 11:10 12/18/24 11:10 12/18/24 11:10 12/18/24 11:10 12/18/24 11:10
I&O
12/17/24 12/18/24 12/19/24
06:59 06:59 06:59
Intake Total 1680 / 1680 1150 / 1150
Balance 1680 / 1680 1150 / 1150
[2024-12-18] MEDS: ROBITUSSIN TUBE ×2 (12:41→17:45)
[2024-12-18] MEDS: KCL ELIXIR 40 MEQ TUBE (13:43)
[2024-12-18 15:12] VITALS: BP 130/59
--- NOTE | 2024-12-18 16:27 | CM ---
Peg tube placed tube feedings increasing, the goal is 55cc/hr.
Pt family requested Rob.
Updated referral with Rob to evaluate patient again.
LM with [facility]
Will need auth .
PLAN To Acute rehab VS SNF.
[2024-12-18 16:57] LABS: Sodium 150 mmol/L (135-145)
[2024-12-18 17:24] LABS: Glucose - Point of Care 317 mg/dl (70-99)
[2024-12-18] MEDS: LOVENOX 40 MG SC (17:58)
[2024-12-18] MEDS: ZETIA 10 MG TUBE (17:59)
[2024-12-18] MEDS: LIPITOR 40 MG TUBE (17:59)
[2024-12-18] MEDS: NORVASC 10 MG TUBE (17:59)
[2024-12-18] MEDS: COZAAR 100 MG TUBE (17:59)
[2024-12-18 19:50] VITALS: BP 117/66
[2024-12-18] MEDS: LANTUS 0.2 UNITS SC (22:32)
[2024-12-18] MEDS: ROBITUSSIN 100 MG TUBE (22:32)
[2024-12-18 23:37] VITALS: BP 120/56
[2024-12-18 23:41] LABS: Sodium 149 mmol/L (135-145)
[2024-12-18 23:52] LABS: Glucose - Point of Care 253 mg/dl (70-99)
[2024-12-18] MEDS: NOVOLOG FLEXPEN-LOW RESISTANCE 3 UNITS SC (23:53)
[2024-12-19] VITALS (8 sets, daily range): BP systolic 119–147; BP diastolic 46–73; PULSE 83–85; O2SAT 98–99
[2024-12-19] MEDS: TYLENOL ORAL SOLUTION 650 MG TUBE (02:45)
[2024-12-19] MEDS: SYNTHROID 150 MCG TUBE (05:05)
[2024-12-19 05:10] LABS: Glucose - Point of Care 282 mg/dl (70-99)
[2024-12-19] MEDS: NOVOLOG FLEXPEN-LOW RESISTANCE 3 UNITS SC (05:11)
[2024-12-19] MEDS: NOVOLOG FLEXPEN 15 UNITS SC (05:12)
--- NOTE | 2024-12-19 07:18 | PN.DE.MGMTRT ---
Insulin Management
- -
12/19/2024: Diabetes Management Followup
84 year old male admitted 12/09 with Acute CVA of the left basal ganglia and swan radiata. Diabetes Management consult 12/16. PMH: CAD s/p PCI x6, DM2, hypothyroidism, HTN, CML, dementia and T2DM. Patient was admitted with right-sided
weakness, workup revealing severe narrowing in right P2 segment, treating as acute CVA. Prior to admission was taking Saxagliptin 5mg daily, Metformin 500 mg in AM and 1000 mg in PM. states patient was not testing his blood sugars or adhering
to any specific diet. A1C 8.7%, Cr 0.6, eGFR >60
Patient A/A, non-verbal on exam, noted for right sided weakness and facial droop, unable to discuss diabetes care plan. No family at bedside at time of visit.
Patient was noted for Oropharyngeal dysphagia with concerns of aspirating thin liquids. He underwent VSE and was noted for aspiration to all consistencies.
He is s/p PEG tube placement with initiation of tube feeds, continued @ 60cc/hr with persistent Hyperglycemia
12/18 glucose range was 317 to 385, required 3-5 units of corrective insulins. Fasting glucose is 284 V, 282 POC today.
Will increase Lantus to 22 units BID and increase NovoLog from 15 units to 18 units Q6 hrs. Cont low corrective insulin Q6 hrs.
Anticipate higher insulin requirements while on TF.
Discussed with Nurse. Cont to follow
Diabetes History
- -
Type of Diabetes: 2 requiring insulin
Pre-Admission Diabetes Regimen
12/18/24
07:34
Creatinine 0.9
Lab Results
Hemoglobin A1c 8.7 % (4.0-5.6) H 12/10/24 06:38
Insulin Pump Settings
IP Diabetes Regimen
12/18/24 12/18/24 12/18/24
07:34 11:44 17:22
Glucose 340 H
POC Glucose 349 H 317 H
12/18/24 12/19/24
23:50 05:09
Glucose
POC Glucose 253 H 282 H
Meal type: Lunch
Meal type: Breakfast
Amount consumed: 0
Amount consumed: 0
Patient Education
[2024-12-19 07:20] LABS: Blood Urea Nitrogen 26 mg/dl (9-20); Calcium 8.7 mg/dl (8.4-10.2); Carbon Dioxide 27 mmol/L (22-30); Chloride 114 mmol/L (98-107); Estimated Creatinine Clearance 52 ml/min; Glucose 284 mg/dl (70-99); Magnesium 2.0 mg/dl (1.6-2.3); Potassium 3.6 mmol/L (3.5-5.1); Sodium 145 mmol/L (135-145); eGFR > 60.00
[2024-12-19 07:21] LABS: Hematocrit 25.3 % (39.0-52.0); Hemoglobin 8.5 g/dL (13.0-18.0); Mean Corp Hgb Conc. 33.6 g/dL (33.0-37.0); Mean Corpuscular Volume 87.8 fL (80.0-94.0); Platelet Count 256 10^3/uL (130-400); Red Cell Dist. Width 15.3 % (11.5-14.5)
[2024-12-19] MEDS: FERROUS SULFATE ORAL LIQUID 300 MG TUBE (08:14)
[2024-12-19] MEDS: FOLVITE 1 MG TUBE ×2 (08:14→21:17)
[2024-12-19] MEDS: LANTUS 0.22 UNITS SC ×2 (08:14→21:17)
[2024-12-19] MEDS: NSS (PRESERVATIVE FREE) 10 ML IV ×2 (08:15→21:18)
[2024-12-19] MEDS: ROBITUSSIN 100 MG TUBE (08:15)
[2024-12-19] MEDS: LOPRESSOR 100 MG TUBE (08:15)
[2024-12-19] MEDS: PROTONIX IV 40 MG IV ×2 (08:15→21:18)
[2024-12-19] MEDS: MIRALAX 17 GRAMS TUBE (08:15)
[2024-12-19] MEDS: PLAVIX 75 MG TUBE (08:15)
[2024-12-19] MEDS: VITAMIN C 1000 MG TUBE (08:16)
[2024-12-19] MEDS: VITAMIN D3 (cholecalciferol) 125 MCG TUBE (08:16)
[2024-12-19] MEDS: DESENEX/MITRAZOL/ZEASORB 1 APPLIC TOPICAL ×2 (08:17→21:17)
--- NOTE | 2024-12-19 08:19 | PN.CDI ---
CDI
- -
CDI:
Physician Documentation Request
Admit Date: 12/09/24 04:35
Dear Doctor,
Patient admitted for stroke.
12/18 Hospitalist PN: 'Continue with tube feeds, increase free water flushes, Monitor sodium....Hyponatremia likely secondary dehydration, Repeat sodium later today. also now getting water flushes through the tube which is increased.'
Laboratory Tests
12/16/24 12/17/24 12/18/24
06:52 07:04 16:20
Sodium 146 H 148 H 150 H
Based on the above, could you clarify in the progress notes, the appropriate diagnosis, if significant, that supports the above abnormalities and additional evaluation, monitoring and/or treatment rendered:
Hypernatremia
Abnormal lab value insignificant
Other
Use of terms such as suspected, likely, concern for, or probable (associated with a specific diagnosis that is being evaluated, monitored, or treated as if it exists) are acceptable and can be coded in the inpatient setting, when documented at the
time of discharge.
Thank you,
Carin Whitlock RN, BSN
CDI Specialist
Available via [place] text
Please use your independent medical judgment in providing your response.
[2024-12-19 09:31] LABS: Absolute Neutrophils -Man Diff 24.6 10^3/uL (1.4-6.5); Normal RBC Morphology Yes; Platelets Checked Yes; Total Cells Counted 100
[2024-12-19 11:37] LABS: Glucose - Point of Care 349 mg/dl (70-99)
--- NOTE | 2024-12-19 12:29 | W.PN.HOSP.TC ---
Today's Communication/Plan
-
See plan
Continue with tube feeds, continue with water flushes
Check CT head
Discussed with spouse
Continue insulin
Assessment / Plan
Assessment / Plan
General: Well Developed, No Apparent Distress and Appears Chronically Ill
HEENT: Normocephalic, Atraumatic, Moist Mucous Membranes and Anicteric
Respiratory: Clear to Auscultation and Non Labored Respirations
Cardiac: Regular Rhythm, S1/S2 and Tachycardic
GI: Soft, Nontender, Nondistended and Normal Bowel Sounds
Musculoskeletal: No Edema
Neuro: Awake,Other (0/5 MMS to the right sided extremities, facial droop present)
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
#Cerebrovascular disease
- Suspect ASCVD driven event within the left Jim-cerebrum/basal ganglia/thalamus with symptoms and Hx
- Initial CT scan without any acute findings, CTA showed carotid stenosis and bilateral M1-2 stenosis
- Repeat CT head showed signs of left basal ganglia and swan radiata infarct, deficits worsened
- Second repeat of CT today demonstrates signs of evolving infarct, no ICH seen
- Was unable to tolerate MRI here due to agitation, inability to follow direction
- Recommended for DAPT, statin. now with PEG tube. started these meds through tube. neurology for duration of DAPT
- NIHSS waxes and wanes
Plan
- Resume Plavix and high intensity statin via PEG. Discussed; to continue aspirin and Plavix as patient was already on it for cardiac reasons with multiple PCI
- BP goal normotension, blood glucose control
- Monitor neurochecks and NIHSS
- Monitor tele
repeat CT head as concern for headache
#Oropharyngeal dysphagia
#Aspiration
- Likely related to recent suspected CVA, evaluated by [employer] [facility]
- Recommended regular diet however nursing with concerns of aspirating thin liquids
- VSE with aspiration to all consistencies, possibly affected by Haldol he has received
- Continue with strict n.p.o. status, started DHT tube feeds with Jevity
- GI consulted, s/p PEG tube on 12/15. On EGD with hiatal hernia and gastric ulcer. Finished PPI drip. Now on PPI twice daily
ok to use tube feed; started tube feeds. Monitor electrolytes
cough; cw guaifenesin
#Anion gap metabolic acidosis
- CO2 on morning BMP was 8, VBG with pH 7.27 and low pCO2, AG 20
- Suspect this is associated with poor intake, starvation ketosis
Resolved. DC further bicarbonate drip
- Planning for tube feeding as above
Hypernatremia likely secondary dehydration
Repeat sodium later today. also now getting water flushes through the tube which is increased. Na 145, monitor
#Hypokalemia
- Due to lack of oral intake
- Trend BMP and mag levels
#Leukocytosis
#CML
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
- Antibiotics deferred on arrival, no obvious infectious findings at this time
- Differential without mention of basophils, would expect these to be elevated
Leukocytosis, chest x-ray without pneumonia. Monitor
#CAD s/p PCI x 6
#Dyslipidemia
- Home regimen includes DAPT with aspirin and Plavix, metoprolol tartrate twice daily
- Not currently on statin therapy as last lipid panel with LDL near 39, is on ezetimibe
- Follow-up repeat lipid panel as above, consider starting statin
- No signs of ACS at this time
#NIDDM
- A1c 8.7%; no known microvascular disease though likely associated with PAD
- Home regimen includes metformin and saxagliptin;
- Was transition to ISS with Accu-Cheks while inpatient. Given recent stroke and uncontrolled diabetes, continue with Lantus and aspart. Diabetes [facility] [facility] following.
#Iatrogenic hypothyroidism
#S/P thyroidectomy
- Home regimen includes levothyroxine 150 mcg daily
- No signs or symptoms of thyroid dysfunction at this time
#Primary hypertension
- Home regimen includes amlodipine, metoprolol tartrate, losartan
Restarted home regimen since now has PEG
- Continue with remainder of home regimen and monitor vitals
- Blood pressure goal normotension
#GERD
- No known history of Suarez's esophagus or erosive disease
- Not currently on PPI or antihistamine
#Dementia
#Behavioral disturbances
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
- Developed agitation for which as needed IM Haldol was ordered
- Continue to monitor, proceed with delirium precautions. Overnight Seroquel given. Decrease Seroquel to 12.5mg as needed. Discussed with nursing that should try mitts prior to giving medications
- Avoid benzodiazepines for delirium
Thromboprophylaxis: SQ Lovenox
CODE STATUS: Full code
Disposition: Acute rehab when medically stable
updated
I spent a total of 52 minutes with the patient or on the floor. More than 50% of this time involved counseling and coordination of care.
Anticipated Discharge: 24 - 48 hours
Subjective/Interval History
-
Date of Service: December 19, 2024
denies pain
Objective Data
-
Labs:
Laboratory Results
12/19/24
06:01
WBC 27.4 H
Hgb 8.5 L
Hct 25.3 L
Plt Count 256
Sodium 145
Potassium 3.6
Chloride 114 H
Carbon Dioxide 27
BUN 26 H
Creatinine 0.9
Glucose 284 H
Calcium 8.7
Vital Signs:
Vital Signs
Temp Pulse Resp BP Pulse Ox
97.9 F 80 16 119/46 98
12/19/24 11:13 12/19/24 11:13 12/19/24 11:13 12/19/24 11:13 12/19/24 11:13
I&O
12/18/24 12/19/24 12/20/24
06:59 06:59 06:59
Intake Total 1150 / 1150 1600 / 1600
Balance 1150 / 1150 1600 / 1600
[2024-12-19] MEDS: NOVOLOG FLEXPEN 18 UNITS SC ×2 (13:15→18:37)
[2024-12-19] MEDS: NOVOLOG FLEXPEN-LOW RESISTANCE 4 UNITS SC (13:15)
--- NOTE | 2024-12-19 15:41 | CM ---
Peg tube placed tube feedings increasing, pt is at goal of 55cc/hr.
[place] rep with [facility] to evaluate patient again and felt he was not a candidate.
Spoke with in room explained acute rehab can not take him. SNF is suggested.
PAC data for SNF given
Will need auth for SNF.
PLAN FU with for SNF choices.
--- NOTE | 2024-12-19 16:15 | CON.MD ---
Documented by User: Connie Caldwell PA-C 12/21/24 06:14
Consultation - Medical
-
Referring Provider:�Moe Garza
Chief Complaint:�CVA
�
History of Present Illness:�patient is an 84 years old male with PMH of (CAD, ywf-[id number] diabetes, hypothyroidism and hypertension) who presented to the ER with right-sided weakness and severe aphasia that started [address]
of the head was unremarkable and CTA of head and neck showed no large vessel occlusion dissection or aneurysm,but severe narrowing of the right P2 segment.Repeat CT head showed worsening signs of left basal ganglia and swan radiata infarct and
third CT demonstrates signs of evolving infarct, no ICH seen. Patient unable to tolerate MRI due to agitation.
Neurology recommended daily aspirin and Plavix. Evaluated by speech with recommendation of regular diet. With concerns of thin liquids aspiration, patient underwent video swallow test with aspiration to all consistencies, possibly affected by Haldol
he has received. GI consulted.
s/p EGD for PEG placement on 12/15 with incidental findings of multiple clean based gastric ulcers as well as duodenal ulcer with NBVB with clot, unable to fully dislodge but able to see just distal to the area. The ulcer was injected with epi and
treated with bicap. Also, while placing the PEG, a small mucosal tear was found on his partially obstructing schatzki ring above the hiatal hernia, the defect was closed with a hemostatic clip. Ideally, would repeat EGD in 2 months, but given
patients current health status, it may be not be in his best interest/change his management. Was started on PPI gtt x 72 hours, then twice daily x8 weeks through PEG, then daily indefinitely. advance TFs Jevity slowly, increase free water flushes
and replenish electrolytes
Patient very sleepy therapy Eyes closed 100% all time. Was giving Seroquel. Dose now decreased to 12.5 as needed
12/17/2024- PMR attempted to see patient on 12/16 and . Patient lethargic and not responding. Deeply sleeping. Will continue to follow.
�
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
Procedure History:�Thyroidectomy, cardiac, orthopedic
Family History:�non contributory.
�
Social History:�
Functional Level Premorbidly:�Assisted with all activities�
Functional Level Currently:�Patient kept eyes closed at 100%, too lethargic to participate on 12/18 session due to receiving Seroquel overnight. Grooming, toileting, upper and lower extremity self-care, bed mobility�dependent,
�
Tobacco:�Denies�
Alcohol:�Denies�
Drug use:�Denies�
�
Lives with:�Spouse
24-hour assistance available:�
Number of floors:�2
# steps to enter: 2#
steps to second floor:
Potential First floor set up:�
Driving:�
Occupation:�[employer]
�
�
Allergies:�
Allergy/AdvReac Type Severity Reaction Status Date / Time
abciximab Allergy problems Verified 12/09/24 02:49
with blood
levels
hydralazine Allergy Unknown Verified 12/09/24 02:49
lorazepam (From Ativan) Allergy per pt's Verified 12/16/24 15:37
'Makes pt
go
'bonkers''
morphine Allergy OD at Verified 12/09/24 02:49
level dose
per patient
oxycodone (From Percocet) Allergy Migranes Verified 12/09/24 02:49
�
Review of Systems:�
Constitutional: (x) abNormal _tired
Eye: (x) Normal _
Ear/Nose/Throat: (x) Normal _
Respiratory: (x) Normal _
Cardiovascular: (x) Normal _
Gastrointestinal: (x) abNormal _dysphagia, s/p feeding tube
Genitourinary: (x) Normal _
Musculoskeletal: (x) abNormal _hemiparesis, stroke
Integumentary: (x) Normal _
Neurologic: (x) Normal _
Psychiatric: (x) abNormal _agitation,
Endocrine: (x) Normal _
Hematologic/Lymphatic: (x) Normal _
Allergic/Immunologic: (x) Normal _
�
Medications:�
Active Current Visit Medication List
Category Date Time Status
0.9% Sodium Chloride [Nss (Preservative Free)] Med 12/18/24 09:00 Active
10 ml IV BID
Acetaminophen [Tylenol Oral Solution] Med 12/16/24 12:36 Active
650 mg TUBE Q4HPRN PRN
Acetaminophen [Tylenol/Feverall] Med 12/09/24 07:41 Active
650 mg RECTAL Q4HPRN PRN
Amlodipine [Norvasc] Med 12/16/24 12:28 Active
10 mg TUBE QPM
Ascorbic Acid [Vitamin C] Med 12/16/24 12:32 Active
1,000 mg TUBE DAILY
Aspirin Chewable [Low Strength Aspirin] Med 12/17/24 08:00 Hold
81 mg TUBE DAILY
Atorvastatin [Lipitor] Med 12/16/24 12:28 Active
40 mg TUBE QPM
Cholecalciferol (Vitamin D3) [VITAMIN D3 ( Med 12/16/24 12:28 Active
cholecalciferol)]
125 mcg TUBE DAILY
Clopidogrel Bisulfate [Plavix] Med 12/16/24 12:30 Active
75 mg TUBE DAILY
Dextrose 50%-Water [Dextrose 50% Syringe] Med 12/09/24 07:41 Active
12.5 grams IV [id number] PRN
Enoxaparin Sodium [Lovenox] Med 12/09/24 18:00 Active
40 mg SC QPM
Ezetimibe [Zetia] Med 12/16/24 12:28 Active
10 mg TUBE QPM
FOLic ACID [Folvite] Med 12/16/24 12:32 Active
1 mg TUBE BID
Ferrous Sulfate [Ferrous Sulfate Oral Liquid] Med 12/17/24 08:00 Active
300 mg TUBE DAILY
Flush (0.9% Sodium Chloride) [Flush (Nss)] Med 12/09/24 08:00 Active
See Dose Instructions IV PER PROTOCOL
Glucagon [GlucaGen] Med 12/09/24 07:41 Active
1 mg IM PRN PRN
Guaifenesin Solution [Robitussin] Med 12/18/24 13:00 Active
100 mg TUBE QID
Haloperidol Lactate [Haldol] Med 12/10/24 11:01 Active
1 mg IM Q4HPRN PRN
Insulin Aspart Corrective Low [Novolog Flexpen-Low Med 12/14/24 12:00 Active
Resistance]
See Protocol SC Q6H
Insulin Aspart Pen [Novolog Flexpen] Med 12/19/24 07:49 Active
18 units SC Q6
Insulin Glargine Lantus [Lantus] 22 units Med 12/19/24 08:00 Active
Subcutaneous Insulin Syringe [Syringe-Insulin] 0 unit
SC BID
Levothyroxine [Synthroid] Med 12/17/24 06:00 Active
150 mcg TUBE DAILY@0600
Losartan [Cozaar] Med 12/16/24 12:28 Active
100 mg TUBE QPM
Metoprolol [Lopressor] Med 12/17/24 08:00 Active
100 mg TUBE DAILY
Miconazole Nitrate [Desenex/Mitrazol/Zeasorb] Med 12/12/24 23:45 Active
See Dose Instructions TOPICAL BID
Pantoprazole [Protonix IV] Med 12/18/24 09:00 Active
40 mg IV BID
Polyethylene Glycol Powder [Miralax] Med 12/16/24 13:47 Active
17 grams TUBE DAILY
Quetiapine Fumarate [Seroquel] Med 12/18/24 11:22 Active
12.5 mg TUBE BIDPRN PRN
�
Vitals:�
Temp Pulse Resp BP Pulse Ox
98.3 F 108 20 119/68 94
12/19/24 07:35 12/19/24 07:35 12/19/24 07:35 12/19/24 07:35 12/19/24 07:35
Height 5 ft 4 in
Actual Weight 65.346 kg
Body Mass Index (BMI) 24.7
�
Physical Exam:�
General Appearance/Observation: Well-developed, well-nourished individual in no apparent distress.�Sleeping
Pain/Comfort Assessment:
Mood/Affect: Appropriate�
�
Integumentary/Operative Site:�
�� Pressure Ulcer Evaluation: absent over heels.�
�
�� Other Type of Wound: absent�
��
�
Eyes: Conjunctiva/Lids: normal����
Respiratory: Respiratory Effort/Chest Expansion: normal�������
Extremities:�Edema: None�Cyanosis: None�Trophic�changes: None
�
Neurology Exam:
Orientation: deep sleep
Lab Results:
Labs
WBC 27.4 10^3/uL (4.8-10.8) H 12/19/24 06:01
RBC 2.88 10^6/uL (4.70-6.10) L 12/19/24 06:01
Hgb 8.5 g/dL (13.0-18.0) L 12/19/24 06:01
Hct 25.3 % (39.0-52.0) L 12/19/24 06:01
MCV 87.8 fL (80.0-94.0) 12/19/24 06:01
MCH 29.5 pg (27.0-31.0) 12/19/24 06:01
MCHC 33.6 g/dL (33.0-37.0) 12/19/24 06:01
RDW 15.3 % (11.5-14.5) H 12/19/24 06:01
Plt Count 256 10^3/uL (130-400) 12/19/24 06:01
Plt Count Comment Yes 12/18/24 07:34
MPV 11.6 fL (7.4-10.4) H 12/19/24 06:01
Total Counted 100 12/18/24 07:34
Abs Neuts (Manual) 24.6 10^3/uL (1.4-6.5) H 12/18/24 07:34
Segmented Neutrophils 82 % (42-75) H 12/18/24 07:34
Band Neutrophils 0 % (0-3) D 12/18/24 07:34
Lymphocytes (Manual) 7 % (20-51) L 12/18/24 07:34
Monocytes (Manual) 11 % (2-9) H 12/18/24 07:34
Eosinophils (Manual) 1 % (0-6) 12/13/24 05:57
Normal RBC Morphology Yes 12/18/24 07:34
Poikilocytosis Slight 12/13/24 05:57
Anisocytosis Slight 12/16/24 06:52
Target Cells Few 12/14/24 07:41
[place] Cells Few 12/14/24 07:41
Acanthocytes (Spur) Few 12/14/24 07:41
PT 16.2 Sec (11.4-14.6) H 12/15/24 07:41
INR 1.27 12/15/24 07:41
APTT 29.1 Sec (23.4-35.0) 12/09/24 02:27
Plt Function - Aspirin 404 ARU 12/10/24 06:38
Plt P2Y12 React Units 245 PRU (180-376) 12/11/24 09:06
VBG pH 7.45 (7.32-7.43) H 12/14/24 22:04
VBG pCO2 48 mmHg (35-48) 12/14/24 22:04
VBG pO2 51 mmHg (30-50) H 12/14/24 22:04
VBG HCO3 33.4 mmol/L (22-27) H 12/14/24 22:04
VBG O2 Sat (Herlinda) 86.1 % 12/14/24 22:04
VBG Base Excess 8.3 mmol/L (-4 to +4) 12/14/24 22:04
VBG O2 Therapy 12/14/24 22:04
Sodium 145 mmol/L (135-145) 12/19/24 06:01
Potassium 3.6 mmol/L (3.5-5.1) 12/19/24 06:01
Chloride 114 mmol/L (98-107) H 12/19/24 06:01
Carbon Dioxide 27 mmol/L (22-30) 12/19/24 06:01
BUN 26 mg/dl (9-20) H 12/19/24 06:01
Creatinine 0.9 mg/dL (0.7-1.3) 12/19/24 06:01
Estimated Creat Clear 52 ml/min 12/19/24 06:01
eGFR > 60.00 12/19/24 06:01
Glucose 284 mg/dl (70-99) H 12/19/24 06:01
Hemoglobin A1c 8.7 % (4.0-5.6) H 12/10/24 06:38
Calcium 8.7 mg/dl (8.4-10.2) 12/19/24 06:01
Phosphorus 3.2 mg/dl (2.5-4.5) 12/19/24 06:01
Magnesium 2.0 mg/dl (1.6-2.3) 12/19/24 06:01
Ferritin 115.0 ng/ml (17.9-464.0) 12/10/24 06:38
Total Bilirubin 1.0 mg/dl (0.2-1.3) 12/09/24 02:27
AST 30 U/L (17-59) 12/09/24 02:27
ALT 19 U/L (0-50) 12/09/24 02:27
Alkaline Phosphatase 65 U/L (38-126) 12/09/24 02:27
Troponin I < 0.012 ng/ml 12/09/24 02:27
Total Protein 8.8 g/dl (6.3-8.2) H 12/09/24 02:27
Albumin 4.9 g/dl (3.5-5.0) 12/09/24 02:27
Triglycerides 119 mg/dl (10-149) 12/10/24 06:38
Total Cholesterol 126 mg/dl (50-199) 12/10/24 06:38
LDL Cholesterol, Calc 68 mg/dl 12/10/24 06:38
VLDL Cholesterol, Calc 23 mg/dl (0-30) 12/10/24 06:38
HDL Cholesterol 35 mg/dl 12/10/24 06:38
Vitamin B12 669 pg/ml (239-931) 12/10/24 06:38
Folate > 20.0 ng/ml (2.76-20) H 12/10/24 06:38
TSH (Reflex) 0.08 uIU/ml (0.47-4.68) L 12/10/24 06:38
Free T4 2.32 ng/dl (0.78-2.19) H 12/10/24 06:38
Urine Color Yellow 12/15/24 01:31
Urine Clarity Clear (Clear) 12/15/24 01:31
Urine pH 6.0 (5.0-9.0) 12/15/24 01:31
Ur Specific [place] 1.010 (<1.030) 12/15/24 01:31
Urine Ketones 3+ (Negative) A 12/15/24 01:
Ur Occult Blood Reflex Negative (Negative) 12/15/24 01:
Urine Nitrite (Reflex) Negative (Negative) 12/15/24 01:
Urine Bilirubin Negative (Negative) 12/15/24 01:
Urine Urobilinogen Negative (Neg - 1+) 12/15/24 01:
Leukocyte Esterase Rfl Negative (Negative) 12/15/24 01:
Urine RBC 0-2 /HPF (0-2) 12/15/24 01:31
Urine WBC (Reflex) 0-2 /HPF (0-5) 12/15/24 01:31
Ur Squamous Epith Cells 11-15 /LPF (Few) 12/15/24 01:31
Amorphous Crystals Seen 12/15/24 01:31
Urine Bacteria (Reflex) Few (Negative) A 12/15/24 01:31
Urine Glucose 4+ (Negative) A 12/15/24 01:31
Urine Albumin (Reflex) 2+ (Neg - Trace) A 12/15/24 01:31
POC Glucose 282 mg/dl (70-99) H 12/19/24 05:09
�
Diagnostic Results:�as per HPI�
�
Assessment
�
Plan�
PM&R�PT/OT to increase independence with ADLs, improve balance, coordination, endurance, strength, mobility, community reintegration, decreased burden of care on others and family education.�
�
CVA: acute left subcortical infarct and atherosclerotic narrowing of the bilateral M1 and M2(severity is not specified) and severe right P2 stenoses. Secondary prophylaxis with aspirin and Plavix x 3 months followed by aspirin lifelong, statin, and
blood pressure control (SBP less than 180 and diastolic less than 100 to participate with therapy for ischemic stroke). Continue to monitor neurologic status.�
Right dominant hemiparesis: High risk for falls and sliding out of chair/bed. Safety reinforced.�
- Avoid using affected arm to help lift or pull patient as this will cause trauma to the shoulder.
Dysphagia: speech evaluation. FeediDysarthria: speech evaluation�
Aphasia: speech evaluation�
CML/Leukocytosis:
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
- Antibiotics deferred on arrival, no obvious infectious findings at this time
- Differential without mention of basophils, would expect these to be elevated
Leukocytosis, chest x-ray without pneumonia. Monitor
HTN: Amlodipine, metoprolol tartrate, losartan (home meds) monitor closely�
HLD: Statin�
Coronary artery disease�:s/p PCI x 6, Aspirin, Plavix, metoprolol tartrate twice daily, not on statin as LDL near 39, Zetia beta-carlota�
Anemia: Likely multifactorial.� Continue to monitor.�
Psych/Dementia/Agitation: Likely senile, Alzheimer's.IM Haldol was ordered. Seroquel- sedation. Dose decreased to 12.5mg as needed. Avoid benzodiazepines for delirium. Psychology consult.� Monitor mood, adjust medications as needed.�
Skin: monitor for pressure sores/rashes/lesions.�
Pain: acetaminophen as needed.�
Bowel: suggest Colace and Senna, PRN bisacodyl.�
Bladder: Time void, PVRs, PRN straight cath.�
Gastric ulcers: Pantoprazole�bid x 8 weeks
DVT Prophylaxis: mechanical and Lovenox
Pulmonary: Incentive spirometry�
Safety: Continue to reinforce assistance with all transfers.�
Code Status:� Full code
Dispo�(date/plan/equipment needs): Home with family care.� Social history reviewed.�
�
Discharge Destination:� Attempted to see patient several times but patient too lethargic and unresponsive. Not a candidate for acute inpatient at this time. May benefit from transitional SNF.
�
�Late entry
Thank you for allowing me to care for your patient. Please contact me with any questions or concerns.

Documented by User: Juan Manuel Palacios MD 12/22/24 13:56
Consultation - Medical
-
Referring Provider:�Moe Garza
Chief Complaint:�CVA
�
History of Present Illness:�84 years old male with PMH of (CAD, zqd-tbstkde-svanwlpda diabetes, hypothyroidism and hypertension) who presented to the ER with right-sided weakness and severe aphasia that started [address] of the head
was unremarkable and CTA of head and neck showed no large vessel occlusion dissection or aneurysm,but severe narrowing of the right P2 segment.Repeat CT head showed worsening signs of left basal ganglia and swan radiata infarct and third CT
demonstrates signs of evolving infarct, no ICH seen. Patient unable to tolerate MRI due to agitation.
Neurology recommended daily aspirin and Plavix. Evaluated by speech with recommendation of regular diet. With concerns of thin liquids aspiration, patient underwent video swallow test with aspiration to all consistencies, possibly affected by Haldol
he has received. GI consulted.
s/p EGD for PEG placement on 12/15 with incidental findings of multiple clean based gastric ulcers as well as duodenal ulcer with NBVB with clot, unable to fully dislodge but able to see just distal to the area. The ulcer was injected with epi and
treated with bicap. Also, while placing the PEG, a small mucosal tear was found on his partially obstructing schatzki ring above the hiatal hernia, the defect was closed with a hemostatic clip. Ideally, would repeat EGD in 2 months, but given
patients current health status, it may be not be in his best interest/change his management. Was started on PPI gtt x 72 hours, then twice daily x8 weeks through PEG, then daily indefinitely. advance TFs Jevity slowly, increase free water flushes
and replenish electrolytes
Patient very sleepy therapy Eyes closed 100% all time. Was giving Seroquel. Dose now decreased to 12.5 as needed
12/17/2024- PMR attempted to see patient on 12/16 and . Patient lethargic and not responding. Deeply sleeping. Will continue to follow.
�
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
Procedure History:�Thyroidectomy, cardiac, orthopedic
Family History:�non contributory.
�
Social History:�
Functional Level Premorbidly:�Assisted with all activities�
Functional Level Currently:�Patient kept eyes closed at 100%, too lethargic to participate on 12/18 session due to receiving Seroquel overnight. Grooming, toileting, upper and lower extremity self-care, bed mobility�dependent,
�
Tobacco:�Denies�
Alcohol:�Denies�
Drug use:�Denies�
�
Lives with:�Spouse
24-hour assistance available:�Yes
Number of floors:�2
# steps to enter: 2
steps to second floor: full flight
Potential First floor set up:�
Driving:�
Occupation:�[employer]
�
�
Allergies:�
Allergy/AdvReac Type Severity Reaction Status Date / Time
abciximab Allergy problems Verified 12/09/24 02:49
with blood
levels
hydralazine Allergy Unknown Verified 12/09/24 02:49
lorazepam (From Ativan) Allergy per pt's Verified 12/16/24 15:37
'Makes pt
go
'bonkers''
morphine Allergy OD at Verified 12/09/24 02:49
level dose
per patient
oxycodone (From Percocet) Allergy Migranes Verified 12/09/24 02:49
�
Review of Systems:� Limited by fatigue
Constitutional: (x) abNormal _tired
Eye: (x) Normal _
Ear/Nose/Throat: (x) Normal _
Respiratory: (x) Normal _
Cardiovascular: (x) Normal _
Gastrointestinal: (x) abNormal _dysphagia, s/p feeding tube
Genitourinary: (x) Normal _
Musculoskeletal: (x) abNormal _hemiparesis, stroke
Integumentary: (x) Normal _
Neurologic: (x) Normal _
Psychiatric: (x) abNormal _agitation,
Endocrine: (x) Normal _
Hematologic/Lymphatic: (x) Normal _
Allergic/Immunologic: (x) Normal _
�
Medications:�
Active Current Visit Medication List
Category Date Time Status
0.9% Sodium Chloride [Nss (Preservative Free)] Med 12/18/24 09:00 Active
10 ml IV BID
Acetaminophen [Tylenol Oral Solution] Med 12/16/24 12:36 Active
650 mg TUBE Q4HPRN PRN
Acetaminophen [Tylenol/Feverall] Med 12/09/24 07:41 Active
650 mg RECTAL Q4HPRN PRN
Amlodipine [Norvasc] Med 12/16/24 12:28 Active
10 mg TUBE QPM
Ascorbic Acid [Vitamin C] Med 12/16/24 12:32 Active
1,000 mg TUBE DAILY
Aspirin Chewable [Low Strength Aspirin] Med 12/17/24 08:00 Hold
81 mg TUBE DAILY
Atorvastatin [Lipitor] Med 12/16/24 12:28 Active
40 mg TUBE QPM
Cholecalciferol (Vitamin D3) [VITAMIN D3 ( Med 12/16/24 12:28 Active
cholecalciferol)]
125 mcg TUBE DAILY
Clopidogrel Bisulfate [Plavix] Med 12/16/24 12:30 Active
75 mg TUBE DAILY
Dextrose 50%-Water [Dextrose 50% Syringe] Med 12/09/24 07:41 Active
12.5 grams IV [id number] PRN
Enoxaparin Sodium [Lovenox] Med 12/09/24 18:00 Active
40 mg SC QPM
Ezetimibe [Zetia] Med 12/16/24 12:28 Active
10 mg TUBE QPM
FOLic ACID [Folvite] Med 12/16/24 12:32 Active
1 mg TUBE BID
Ferrous Sulfate [Ferrous Sulfate Oral Liquid] Med 12/17/24 08:00 Active
300 mg TUBE DAILY
Flush (0.9% Sodium Chloride) [Flush (Nss)] Med 12/09/24 08:00 Active
See Dose Instructions IV PER PROTOCOL
Glucagon [GlucaGen] Med 12/09/24 07:41 Active
1 mg IM PRN PRN
Guaifenesin Solution [Robitussin] Med 12/18/24 13:00 Active
100 mg TUBE QID
Haloperidol Lactate [Haldol] Med 12/10/24 11:01 Active
1 mg IM Q4HPRN PRN
Insulin Aspart Corrective Low [Novolog Flexpen-Low Med 12/14/24 12:00 Active
Resistance]
See Protocol SC Q6H
Insulin Aspart Pen [Novolog Flexpen] Med 12/19/24 07:49 Active
18 units SC Q6
Insulin Glargine Lantus [Lantus] 22 units Med 12/19/24 08:00 Active
Subcutaneous Insulin Syringe [Syringe-Insulin] 0 unit
SC BID
Levothyroxine [Synthroid] Med 12/17/24 06:00 Active
150 mcg TUBE DAILY@0600
Losartan [Cozaar] Med 12/16/24 12:28 Active
100 mg TUBE QPM
Metoprolol [Lopressor] Med 12/17/24 08:00 Active
100 mg TUBE DAILY
Miconazole Nitrate [Desenex/Mitrazol/Zeasorb] Med 12/12/24 23:45 Active
See Dose Instructions TOPICAL BID
Pantoprazole [Protonix IV] Med 12/18/24 09:00 Active
40 mg IV BID
Polyethylene Glycol Powder [Miralax] Med 12/16/24 13:47 Active
17 grams TUBE DAILY
Quetiapine Fumarate [Seroquel] Med 12/18/24 11:22 Active
12.5 mg TUBE BIDPRN PRN
�
Vitals:�
Temp Pulse Resp BP Pulse Ox
98.3 F 108 20 119/68 94
12/19/24 07:35 12/19/24 07:35 12/19/24 07:35 12/19/24 07:35 12/19/24 07:35
Height 5 ft 4 in
Actual Weight 65.346 kg
Body Mass Index (BMI) 24.7
�
Physical Exam:�
General Appearance/Observation: Well-developed, well-nourished individual in no apparent distress.�Sleeping
Pain/Comfort Assessment: Denies
Mood/Affect: Appropriate�
�
Integumentary/Operative Site:�None noted during course of exam.�
Eyes: Conjunctiva/Lids: normal����
Respiratory: Respiratory Effort/Chest Expansion: normal�������
Cardiac: Regular Rhythm and S1/S2, no murmur
Extremities:�Edema: None�Cyanosis: None�Trophic�changes: None
�
Neurology Exam:
Orientation: deep sleep, does respond to tactile stimuli, not voicing concerns. Does some head nodding
Right sided weakness, does not follow commands for movement, moves left side not to command.
Lab Results:
Labs
WBC 27.4 10^3/uL (4.8-10.8) H 12/19/24 06:01
RBC 2.88 10^6/uL (4.70-6.10) L 12/19/24 06:01
Hgb 8.5 g/dL (13.0-18.0) L 12/19/24 06:01
Hct 25.3 % (39.0-52.0) L 12/19/24 06:01
MCV 87.8 fL (80.0-94.0) 12/19/24 06:01
MCH 29.5 pg (27.0-31.0) 12/19/24 06:01
MCHC 33.6 g/dL (33.0-37.0) 12/19/24 06:01
RDW 15.3 % (11.5-14.5) H 12/19/24 06:01
Plt Count 256 10^3/uL (130-400) 12/19/24 06:01
Plt Count Comment Yes 12/18/24 07:34
MPV 11.6 fL (7.4-10.4) H 12/19/24 06:01
Total Counted 100 12/18/24 07:34
Abs Neuts (Manual) 24.6 10^3/uL (1.4-6.5) H 12/18/24 07:34
Segmented Neutrophils 82 % (42-75) H 12/18/24 07:34
Band Neutrophils 0 % (0-3) D 12/18/24 07:34
Lymphocytes (Manual) 7 % (20-51) L 12/18/24 07:34
Monocytes (Manual) 11 % (2-9) H 12/18/24 07:34
Eosinophils (Manual) 1 % (0-6) 12/13/24 05:57
Normal RBC Morphology Yes 12/18/24 07:34
Poikilocytosis Slight 12/13/24 05:57
Anisocytosis Slight 12/16/24 06:52
Target Cells Few 12/14/24 07:41
[place] Cells Few 12/14/24 07:41
Acanthocytes (Spur) Few 12/14/24 07:41
PT 16.2 Sec (11.4-14.6) H 12/15/24 07:41
INR 1.27 12/15/24 07:41
APTT 29.1 Sec (23.4-35.0) 12/09/24 02:27
Plt Function - Aspirin 404 ARU 12/10/24 06:38
Plt P2Y12 React Units 245 PRU (180-376) 12/11/24 09:06
VBG pH 7.45 (7.32-7.43) H 12/14/24 22:04
VBG pCO2 48 mmHg (35-48) 12/14/24 22:04
VBG pO2 51 mmHg (30-50) H 12/14/24 22:04
VBG HCO3 33.4 mmol/L (22-27) H 12/14/24 22:04
VBG O2 Sat (Herlinda) 86.1 % 12/14/24 22:04
VBG Base Excess 8.3 mmol/L (-4 to +4) 12/14/24 22:04
VBG O2 Therapy 12/14/24 22:04
Sodium 145 mmol/L (135-145) 12/19/24 06:01
Potassium 3.6 mmol/L (3.5-5.1) 12/19/24 06:01
Chloride 114 mmol/L (98-107) H 12/19/24 06:01
Carbon Dioxide 27 mmol/L (22-30) 12/19/24 06:01
BUN 26 mg/dl (9-20) H 12/19/24 06:01
Creatinine 0.9 mg/dL (0.7-1.3) 12/19/24 06:01
Estimated Creat Clear 52 ml/min 12/19/24 06:01
eGFR > 60.00 12/19/24 06:01
Glucose 284 mg/dl (70-99) H 12/19/24 06:01
Hemoglobin A1c 8.7 % (4.0-5.6) H 12/10/24 06:38
Calcium 8.7 mg/dl (8.4-10.2) 12/19/24 06:01
Phosphorus 3.2 mg/dl (2.5-4.5) 12/19/24 06:01
Magnesium 2.0 mg/dl (1.6-2.3) 12/19/24 06:01
Ferritin 115.0 ng/ml (17.9-464.0) 12/10/24 06:38
Total Bilirubin 1.0 mg/dl (0.2-1.3) 12/09/24 02:27
AST 30 U/L (17-59) 12/09/24 02:27
ALT 19 U/L (0-50) 12/09/24 02:27
Alkaline Phosphatase 65 U/L (38-126) 12/09/24 02:27
Troponin I < 0.012 ng/ml 12/09/24 02:27
Total Protein 8.8 g/dl (6.3-8.2) H 12/09/24 02:27
Albumin 4.9 g/dl (3.5-5.0) 12/09/24 02:27
Triglycerides 119 mg/dl (10-149) 12/10/24 06:38
Total Cholesterol 126 mg/dl (50-199) 12/10/24 06:38
LDL Cholesterol, Calc 68 mg/dl 12/10/24 06:38
VLDL Cholesterol, Calc 23 mg/dl (0-30) 12/10/24 06:38
HDL Cholesterol 35 mg/dl 12/10/24 06:38
Vitamin B12 669 pg/ml (239-931) 12/10/24 06:38
Folate > 20.0 ng/ml (2.76-20) H 12/10/24 06:38
TSH (Reflex) 0.08 uIU/ml (0.47-4.68) L 12/10/24 06:38
Free T4 2.32 ng/dl (0.78-2.19) H 12/10/24 06:38
Urine Color Yellow 12/15/24 01:31
Urine Clarity Clear (Clear) 12/15/24 01:31
Urine pH 6.0 (5.0-9.0) 12/15/24 01:31
Ur Specific [place] 1.010 (<1.030) 12/15/24 01:31
Urine Ketones 3+ (Negative) A 12/15/24 01:31
Ur Occult Blood Reflex Negative (Negative) 12/15/24 01:31
Urine Nitrite (Reflex) Negative (Negative) 12/15/24 01:31
Urine Bilirubin Negative (Negative) 12/15/24 01:31
Urine Urobilinogen Negative (Neg - 1+) 12/15/24 01:31
Leukocyte Esterase Rfl Negative (Negative) 12/15/24 01:31
Urine RBC 0-2 /HPF (0-2) 12/15/24 01:31
Urine WBC (Reflex) 0-2 /HPF (0-5) 12/15/24 01:31
Ur Squamous Epith Cells 11-15 /LPF (Few) 12/15/24 01:31
Amorphous Crystals Seen 12/15/24 01:31
Urine Bacteria (Reflex) Few (Negative) A 12/15/24 01:31
Urine Glucose 4+ (Negative) A 12/15/24 01:31
Urine Albumin (Reflex) 2+ (Neg - Trace) A 12/15/24 01:31
POC Glucose 282 mg/dl (70-99) H 12/19/24 05:09
�
Diagnostic Results:�as per HPI�
�
Assessment
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
gastric ulcers as well as duodenal ulcer.
�
Plan�
PM&R�PT/OT to increase independence with ADLs, improve balance, coordination, endurance, strength, mobility, community reintegration, decreased burden of care on others and family education.�
�
CVA: acute left subcortical infarct and atherosclerotic narrowing of the bilateral M1 and M2(severity is not specified) and severe right P2 stenoses. Secondary prophylaxis with aspirin and Plavix x 3 months followed by aspirin lifelong, statin, and
blood pressure control (SBP less than 180 and diastolic less than 100 to participate with therapy for ischemic stroke). Continue to monitor neurologic status.�
Right dominant hemiparesis: High risk for falls and sliding out of chair/bed. Safety reinforced.�
- Avoid using affected arm to help lift or pull patient as this will cause trauma to the shoulder.
Dysphagia: speech evaluation. NPO with PEG tube now.
Dysarthria: speech�
Aphasia: speech�
CML/Leukocytosis:
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
- Antibiotics deferred on arrival, no obvious infectious findings at this time
- Differential without mention of basophils, would expect these to be elevated
Leukocytosis, chest x-ray without pneumonia. Monitor
HTN: Amlodipine, metoprolol tartrate, losartan (home meds) monitor closely�
HLD: Statin�
Coronary artery disease�:s/p PCI x 6, Aspirin, Plavix, metoprolol tartrate twice daily, not on statin as LDL near 39, Zetia beta-carlota�
Anemia: Likely multifactorial.� Continue to monitor.�
Psych/Dementia/Agitation: Likely senile, Alzheimer's.IM Haldol was ordered. Seroquel- sedation. Dose decreased to 12.5mg as needed. Avoid benzodiazepines for delirium. Psychology consult.� Monitor mood, adjust medications as needed.�
Skin: monitor for pressure sores/rashes/lesions.�
Pain: acetaminophen as needed.�
Bowel: suggest Colace and Senna, PRN bisacodyl.�
Bladder: Time void, PVRs, PRN straight cath.�
Gastric ulcers: Pantoprazole�bid x 8 weeks
DVT Prophylaxis: mechanical and Lovenox
Pulmonary: Incentive spirometry�
Safety: Continue to reinforce assistance with all transfers.�
Code Status:� Full code
Dispo�(date/plan/equipment needs): Home with family care.� Social history reviewed.�
Discharge Destination:� Attempted to see patient several times but patient too lethargic and unresponsive. Not a candidate for acute inpatient at this time. May benefit from transitional SNF.
Late entry: Thank you for allowing me to care for your patient. Please contact me with any questions or concerns.
Attending Statement: Late entry
I saw and examined the patient 12/19/24. Reviewed care plan with patient, therapy, nursing, and physician daycare assistant. I agree with the above subjective and physical exam, and plan as documented by TOD Caldwell with adjustments made as necessary.
[2024-12-19 18:25] LABS: Glucose - Point of Care 202 mg/dl (70-99)
[2024-12-19] MEDS: COZAAR 100 MG TUBE (18:35)
[2024-12-19] MEDS: LIPITOR 40 MG TUBE (18:35)
[2024-12-19] MEDS: NORVASC 10 MG TUBE (18:36)
[2024-12-19] MEDS: NOVOLOG FLEXPEN-LOW RESISTANCE 2 UNITS SC (18:36)
[2024-12-19] MEDS: LOVENOX 40 MG SC (18:36)
[2024-12-19] MEDS: ZETIA 10 MG TUBE (18:38)
[2024-12-19] MEDS: ROBITUSSIN 200 MG TUBE ×2 (18:38→21:19)
[2024-12-19 20:28] LABS: Glucose - Point of Care 180 mg/dl (70-99)
[2024-12-19 23:56] LABS: Glucose - Point of Care 218 mg/dl (70-99)
[2024-12-20] VITALS (7 sets, daily range): BP systolic 124–152; BP diastolic 52–71; PULSE 82
[2024-12-20] MEDS: NOVOLOG FLEXPEN-LOW RESISTANCE 2 UNITS SC (00:02)
[2024-12-20] MEDS: NOVOLOG FLEXPEN 18 UNITS SC ×4 (00:03→17:11)
[2024-12-20] MEDS: SYNTHROID 150 MCG TUBE (05:19)
[2024-12-20 05:35] LABS: Glucose - Point of Care 156 mg/dl (70-99)
[2024-12-20 05:48] LABS: Hematocrit 27.1 % (39.0-52.0); Hemoglobin 9.0 g/dL (13.0-18.0); Mean Corp Hgb Conc. 33.2 g/dL (33.0-37.0); Mean Corpuscular Volume 92.2 fL (80.0-94.0); Platelet Count 288 10^3/uL (130-400); Red Cell Dist. Width 15.2 % (11.5-14.5)
[2024-12-20 06:07] LABS: Blood Urea Nitrogen 21 mg/dl (9-20); Calcium 8.6 mg/dl (8.4-10.2); Carbon Dioxide 30 mmol/L (22-30); Chloride 110 mmol/L (98-107); Estimated Creatinine Clearance 59 ml/min; Glucose 161 mg/dl (70-99); Magnesium 1.9 mg/dl (1.6-2.3); Potassium 3.5 mmol/L (3.5-5.1); Sodium 147 mmol/L (135-145); eGFR > 60.00
[2024-12-20 06:24] LABS: Glucose - Point of Care 174 mg/dl (70-99)
[2024-12-20] MEDS: NOVOLOG FLEXPEN-LOW RESISTANCE 1 UNITS SC (06:25)
[2024-12-20 06:58] LABS: Nucleated Red Blood Cells % 0 % (-)
--- NOTE | 2024-12-20 07:29 | W.PN.NEURO.1 ---
Today's Communication / Plan
-
.
Subjective/Objective
Subjective Data
Date of Service: December 20, 2024
Neurology follow-up note
HPI: This is an 84-year-old man who presented to [facility] on December 08, 2024 with sided weakness and language dysfunction.
Mr. Willard was found to have an acute left subcortical infarct and atherosclerotic narrowing of the bilateral M1 and M2(severity is not specified) and severe right P2 stenoses.
The patient was on DAPT prior to admission.
ER VS: 158/75, 68, afebrile.
Telemetry: Sinus rhythm/sinus tachycardia.
TTE-LVEF is 55 to 60%.
Labs: LDL�68, hemoglobin A1c�8.7, P2Y12 245(180-376), platelet function aspirin -404(effective).
WBCs�33, hemoglobin�9, sodium�147
PMH:CAD, HTN, DLP, DM, hypothyroidism, dementia, BPH, GERD, Suarez's esophagus, anemia, h/u UGIB/PUD
PSH: PEG, PTCI, thyroidectomy, BL TKA,
SH: , non-smoker
All: Lorazepam, morphine, oxycodone, hydralazine, Abciximab
ROS: Unable due to aphasia
General: Well developed. In no acute distress.
Cardio: Regular rate and rhythm. Extremities are without cyanosis or edema.
Neuro:
Mental Status: Alert, attends briefly. Follows simple requests (closes eyes, showed thumbs up). Severe expressive greater than receptive aphasia. Months.
Cranial Nerves: Intermittent right esodeviation in primary gaze. Horizontal extraocular movement intact. Right ptosis. No blink to threat bilaterally. No clear facial weakness. Hearing is preserved.
Motor: Right hemiplegia. Left arm and leg antigravity.
Reflexes: Positive grasp on the left
Sensory: Localizes noxious stimuli
Coordination: No tremors, clonic movements
Gait: deferred
Assessment and Plan:
I. Acute/subacute left MCA territory stroke. Likely etiology�cardioembolic versus artery to artery embolism from intracranial atherosclerosis. CML can also cause stroke through�hyperviscosity and leukostasis.
II. Encephalopathy (vascular, metabolic, neurodegenerative)
III. DM, uncontrolled
IV. CML
-Continue Telemetry monitoring
-Aspiration precautions
-strict blood pressure control (<130/80 mmHg)
-Brain MRI wo michela if feasible
-Speech therapy
-Continue Lipitor 40 mg nightly
-Continue DAPT for 3 months, then revert to aspirin monotherapy. Clopidogrel monotherapy is reasonable alternative to aspirin but have not been specifically studied in intracranial large artery atherosclerosis
-DVT prophylaxis.
I personally reviewed all radiology and labs along with past medical records pertinent to current medical problems. Total time spent in patient care is 60 minutes.
Thank you for allowing us to participate in the care of this patient. We will continue to follow. Please do not hesitate to contact us with any questions or concerns.
Objective Data
Vital Signs
Temp Pulse Resp BP Pulse Ox
37.2 C 91 18 132/71 99
12/20/24 03:54 12/20/24 03:54 12/20/24 03:54 12/20/24 03:54 12/20/24 03:54
Lab Results
12/20/24 05:03
12/20/24 05:03
PT 16.2 Sec (11.4-14.6) H 12/15/24 07:41
INR 1.27 12/15/24 07:41
APTT 29.1 Sec (23.4-35.0) 12/09/24 02:27
Sodium 147 mmol/L (135-145) H 12/20/24 05:03
Potassium 3.5 mmol/L (3.5-5.1) 12/20/24 05:03
BUN 21 mg/dl (9-20) H 12/20/24 05:03
Glucose 161 mg/dl (70-99) H 12/20/24 05:03
Calcium 8.6 mg/dl (8.4-10.2) 12/20/24 05:03
Phosphorus 3.9 mg/dl (2.5-4.5) 12/20/24 05:03
LDL Cholesterol, Calc 68 mg/dl 12/10/24 06:38
Vitamin B12 669 pg/ml (239-931) 12/10/24 06:38
Patient Allergies
abciximab Allergy (Verified 12/09/24 02:49)
problems with blood levels
hydralazine Allergy (Verified 12/09/24 02:49)
Unknown
lorazepam (From Ativan) Allergy (Verified 12/16/24 15:37)
per pt's 'Makes pt go 'bonkers''
morphine Allergy (Verified 12/09/24 02:49)
OD at level dose per patient
oxycodone (From Percocet) Allergy (Verified 12/09/24 02:49)
Migranes
Vital Signs and Labs
-
Vital Signs and Labs:
Vital Signs
Temp Pulse Resp BP Pulse Ox
37.2 C 98 24 152/68 100
12/20/24 07:00 12/20/24 07:00 12/20/24 07:00 12/20/24 07:00 12/20/24 07:00
Lab Results
12/20/24 05:03
12/20/24 05:03
PT 16.2 Sec (11.4-14.6) H 12/15/24 07:41
INR 1.27 12/15/24 07:41
APTT 29.1 Sec (23.4-35.0) 12/09/24 02:27
Sodium 147 mmol/L (135-145) H 12/20/24 05:03
Potassium 3.5 mmol/L (3.5-5.1) 12/20/24 05:03
BUN 21 mg/dl (9-20) H 12/20/24 05:03
Glucose 161 mg/dl (70-99) H 12/20/24 05:03
Calcium 8.6 mg/dl (8.4-10.2) 12/20/24 05:03
Phosphorus 3.9 mg/dl (2.5-4.5) 12/20/24 05:03
LDL Cholesterol, Calc 68 mg/dl 12/10/24 06:38
Vitamin B12 669 pg/ml (079-931) 12/10/24 06:38
Medications
-
Medications:
Generic Name Dose Route Start Last Admin
Trade Name Freq PRN Reason Stop Dose Admin
Acetaminophen 650 mg 12/09/24 07:41
Acetaminophen 650 Mg Rectal Suppository RECTAL 01/06/25 07:40
Q4HPRN PRN
CHILDRESS, mild pain, or temp >100.4F
Acetaminophen 650 mg 12/16/24 12:36 12/19/24 02:45
Acetaminophen (Oral Solution) 650 Mg/20.3 Ml Cup TUBE 01/13/25 12:35 650 mg
Q4HPRN PRN Administration
CHILDRESS, mild pain, or temp >100.4F
Amlodipine Besylate 10 mg 12/16/24 12:28 12/19/24 18:36
Amlodipine 10 Mg Tablet TUBE 01/06/25 17:59 10 mg
QPM BART Administration
Ascorbic Acid 1,000 mg 12/16/24 12:32 12/20/24 07:39
Ascorbic Acid 500 Mg Tablet TUBE 01/06/25 07:59 1,000 mg
DAILY BART Administration
Aspirin 81 mg 12/17/24 08:00
Aspirin 81 Mg Chewable Tablet TUBE 01/14/25 07:59
On Hold: 12/17/24 08:00 DAILY BART
Comment: While NPO
Atorvastatin Calcium 40 mg 12/16/24 12:28 12/19/24 18:35
Atorvastatin (Lipitor) 40 Mg Tablet TUBE 01/07/25 17:59 40 mg
QPM BART Administration
Cholecalciferol 125 mcg 12/16/24 12:28 12/20/24 07:39
Cholecalciferol (Vitamin D3) 125 Mcg Tablet (5,000 Units) TUBE 01/06/25 07:59 125 mcg
DAILY BART Administration
Clopidogrel Bisulfate 75 mg 12/16/24 12:30 12/20/24 07:39
Clopidogrel 75 Mg Tablet TUBE 01/13/25 12:29 75 mg
DAILY BART Administration
Dextrose 12.5 grams 12/09/24 07:41
Dextrose 50% (0.5 Grams/Ml) 50 Ml Syringe IV 01/06/25 07:40
[id number] PRN
hypoglycemia
Protocol
Ezetimibe 10 mg 12/16/24 12:28 12/19/24 18:38
Ezetimibe (Zetia) 10 Mg Tablet TUBE 01/06/25 17:59 10 mg
QPM BART Administration
Enoxaparin Sodium 40 mg 12/09/24 18:00 12/19/24 18:36
Enoxaparin Sodium 40 Mg/0.4 Ml Syringe SC 01/06/25 17:59 40 mg
QPM BART Administration
Ferrous Sulfate 300 mg 12/17/24 08:00 12/20/24 07:39
Ferrous Sulfate Liquid (300 Mg/5 Ml) Cup TUBE 01/14/25 07:59 300 mg
DAILY BART Administration
Folic Acid 1 mg 12/16/24 12:32 12/20/24 07:39
Folic Acid 1 Mg Tablet TUBE 01/06/25 07:59 1 mg
BID BART Administration
Glucagon 1 mg 12/09/24 07:41
Glucagon 1 Mg Vial IM 01/06/25 07:40
PRN PRN
hypoglycemia
Protocol
Guaifenesin 200 mg 12/19/24 18:00 12/20/24 07:38
Guaifenesin Oral Solution (200 Mg/10 Ml) Cup TUBE 01/15/25 17:59 200 mg
QID BART Administration
Haloperidol Lactate 1 mg 12/10/24 11:01
Haloperidol 5 Mg/Ml 1 Ml Vial IM 01/06/25 13:59
Q4HPRN PRN
agitation/aggression
Insulin Glargine 22 units/ 0.22 mls @ 0 mls/hr 12/19/24 08:00 12/20/24 07:39
Device SC 01/16/25 07:59 0.22 mls
BID BART Administration
As Directed
Insulin Aspart 0 units 12/14/24 12:00 12/20/24 06:25
Insulin Aspart Low Resistance 300 Units/3 Ml Pen.Injctr SC 01/11/25 11:59 1 units
Q6H BART Administration
Protocol
Insulin Aspart 18 units 12/19/24 07:49 12/20/24 06:26
Insulin Aspart (Novolog) 100 Units/Ml 3 Ml Flexpen SC 01/15/25 11:59 18 units
Q6 BART Administration
Levothyroxine Sodium 150 mcg 12/17/24 06:00 12/20/24 05:19
Levothyroxine 150 Mcg Tablet TUBE 01/14/25 05:59 150 mcg
DAILY@0600 BART Administration
Losartan Potassium 100 mg 12/16/24 12:28 12/19/24 18:35
Losartan 100 Mg Tablet TUBE 01/06/25 17:59 100 mg
QPM BART Administration
Metoprolol Tartrate 100 mg 12/17/24 08:00 12/20/24 07:43
Metoprolol 100 Mg Regular Release Tablet TUBE 01/14/25 07:59 100 mg
DAILY BART Administration
Miconazole Nitrate 0 applic 12/12/24 23:45 12/19/24 21:17
Miconazole Powder Bottle TOPICAL 01/09/25 23:44 1 applic
BID BART Administration
Pantoprazole Sodium 40 mg 12/18/24 09:00 12/20/24 07:42
Pantoprazole Sodium 40 Mg/10 Ml Vial IV 01/15/25 08:59 40 mg
BID BART Administration
Polyethylene Glycol 17 grams 12/16/24 13:47 12/20/24 07:38
Polyethylene Glycol Powder 17 Grams Packet TUBE 01/06/25 07:59 17 grams
DAILY BART Administration
Quetiapine Fumarate 12.5 mg 12/18/24 11:22
Quetiapine 25 Mg Tablet TUBE 01/06/25 13:43
BIDPRN PRN
agitation
Sodium Chloride 0 flush 12/09/24 08:00
Sodium Chloride 0.9% (Flush) Syringe IV 01/06/25 07:59
PER PROTOCOL BART
Sodium Chloride 10 ml 12/18/24 09:00 12/20/24 07:40
Sodium Chloride 0.9% (Preservative Free) 10 Ml Vial IV 01/15/25 08:59 10 ml
BID BART Administration
Home Medications
-
Home Medications
Vitamin B-12 5 g PO QPM Supplement 11/11/21
amlodipine 10 mg tablet 10 mg PO QPM Blood pressure 11/11/21
ascorbic acid (vitamin C) 1,000 mg tablet (Vitamin C) 1 g PO DAILY Supplement 11/11/21
clopidogrel 75 mg tablet 75 mg PO DAILY Blood clot prevention/tx 11/11/21
folic acid 1 mg tablet 1 mg PO BID Supplement 11/11/21
losartan 100 mg tablet 100 mg PO QPM Blood pressure 11/11/21
metformin 500 mg tablet,extended release 24 hr 500 mg PO DAILY Diabetes 11/11/21
metformin 500 mg tablet,extended release 24hr (osmotic) 1,000 mg PO QPM Diabetes 11/11/21
metoprolol tartrate 100 mg tablet 100 mg PO DAILY Blood pressure 11/11/21
nitroglycerin 0.4 mg sublingual tablet 0.4 mg sublingual [id number] PRN chest pain #25 tabs 11/11/21
aspirin 81 mg chewable tablet 81 mg PO DAILY #30 tabs 11/15/21
cholecalciferol (vitamin D3) 125 mcg (5,000 unit) tablet (Vitamin D3) 125 mcg PO DAILY Supplement 12/09/24
ezetimibe 10 mg tablet 10 mg PO QPM High Cholesterol 12/09/24
ferrous sulfate 325 mg (65 mg iron) tablet (Iron (ferrous sulfate)) 65 mg PO DAILY Supplement 12/09/24
levothyroxine 150 mcg tablet 150 mcg PO DAILY Thyroid 12/09/24
saxagliptin 5 mg tablet 5 mg PO DAILY Diabetes 12/09/24
[2024-12-20] MEDS: MIRALAX 17 GRAMS TUBE (07:38)
[2024-12-20] MEDS: ROBITUSSIN 200 MG TUBE ×4 (07:38→21:52)
[2024-12-20] MEDS: FOLVITE 1 MG TUBE ×2 (07:39→21:36)
[2024-12-20] MEDS: VITAMIN D3 (cholecalciferol) 125 MCG TUBE (07:39)
[2024-12-20] MEDS: VITAMIN C 1000 MG TUBE (07:39)
[2024-12-20] MEDS: FERROUS SULFATE ORAL LIQUID 300 MG TUBE (07:39)
[2024-12-20] MEDS: LANTUS 0.22 UNITS SC ×2 (07:39→21:51)
[2024-12-20] MEDS: PLAVIX 75 MG TUBE (07:39)
[2024-12-20] MEDS: NSS (PRESERVATIVE FREE) 10 ML IV ×2 (07:40→21:51)
[2024-12-20] MEDS: PROTONIX IV 40 MG IV ×2 (07:42→21:52)
[2024-12-20] MEDS: LOPRESSOR 100 MG TUBE (07:43)
[2024-12-20 08:48] LABS: Absolute Neutrophils -Man Diff 28.0 10^3/uL (1.4-6.5); Normal RBC Morphology Yes; Platelets Checked Yes; Total Cells Counted 100
[2024-12-20] MEDS: DESENEX/MITRAZOL/ZEASORB 1 APPLIC TOPICAL ×2 (09:57→21:50)
--- NOTE | 2024-12-20 11:47 | W.PN.HOSP.TC ---
Today's Communication/Plan
-
Monitor vitals
See plan
Continue with tube feeds
Increase free water flushes
Monitor sodium
Continue with aspirin and Plavix
Denied at acute rehab, now plan is for SNF
Discussed with spouse
Assessment / Plan
Assessment / Plan
General: Well Developed, No Apparent Distress and Appears Chronically Ill
HEENT: Normocephalic, Atraumatic, Moist Mucous Membranes and Anicteric
Respiratory: Clear to Auscultation and Non Labored Respirations
Cardiac: Regular Rhythm, S1/S2 and Tachycardic
GI: Soft, Nontender, Nondistended and Normal Bowel Sounds
Musculoskeletal: No Edema
Neuro: Awake,Other (0/5 MMS to the right sided extremities, facial droop present)
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
#Cerebrovascular disease
- Suspect ASCVD driven event within the left Jim-cerebrum/basal ganglia/thalamus with symptoms and Hx
- Initial CT scan without any acute findings, CTA showed carotid stenosis and bilateral M1-2 stenosis
- Repeat CT head showed signs of left basal ganglia and swan radiata infarct, deficits worsened
- Second repeat of CT today demonstrates signs of evolving infarct, no ICH seen
- Was unable to tolerate MRI here due to agitation, inability to follow direction
- Recommended for DAPT, statin. now with PEG tube. started these meds through tube. neurology for duration of DAPT
- NIHSS waxes and wanes
Plan
- Resume Plavix and high intensity statin via PEG. Discussed; to continue aspirin and Plavix as patient was already on it for cardiac reasons with multiple PCI
- BP goal normotension, blood glucose control
- Monitor neurochecks and NIHSS
- Monitor tele
repeat CT head 12/19 negative for any hemorrhage
#Oropharyngeal dysphagia
#Aspiration
- Likely related to recent suspected CVA, evaluated by ENGINEER EXHAUSTER
- Recommended regular diet however nursing with concerns of aspirating thin liquids
- VSE with aspiration to all consistencies, possibly affected by Haldol he has received
- Continue with strict n.p.o. speech to continue follow
- GI consulted, s/p PEG tube on 12/15. On EGD with hiatal hernia and gastric ulcer. Finished PPI drip. Now on PPI twice daily
ok to use tube feed; started tube feeds. Monitor electrolytes
cough; cw guaifenesin
#Anion gap metabolic acidosis
- CO2 on morning BMP was 8, VBG with pH 7.27 and low pCO2, AG 20
- Suspect this is associated with poor intake, starvation ketosis
Resolved. DC further bicarbonate drip
- Planning for tube feeding as above
Hypernatremia likely secondary dehydration
also now getting water flushes through the tube which is increased. Na 147, monitor
#Hypokalemia
- Due to lack of oral intake
- Trend BMP and mag levels
#Leukocytosis
#CML
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
- Antibiotics deferred on arrival, no obvious infectious findings at this time
- Differential without mention of basophils, would expect these to be elevated
Leukocytosis, chest x-ray without pneumonia. Monitor
#CAD s/p PCI x 6
#Dyslipidemia
- Home regimen includes DAPT with aspirin and Plavix, metoprolol tartrate twice daily
- Not currently on statin therapy as last lipid panel with LDL near 39, is on ezetimibe
- Follow-up repeat lipid panel as above, consider starting statin
- No signs of ACS at this time
#NIDDM
- A1c 8.7%; no known microvascular disease though likely associated with PAD
- Home regimen includes metformin and saxagliptin;
- Was transition to ISS with Accu-Cheks while inpatient. Given recent stroke and uncontrolled diabetes, continue with Lantus and aspart. Diabetes EMU FARM WORKER following.
#Iatrogenic hypothyroidism
#S/P thyroidectomy
- Home regimen includes levothyroxine 150 mcg daily
- No signs or symptoms of thyroid dysfunction at this time
#Primary hypertension
- Home regimen includes amlodipine, metoprolol tartrate, losartan
Restarted home regimen since now has PEG
- Continue with remainder of home regimen and monitor vitals
- Blood pressure goal normotension
#GERD
- No known history of Suarez's esophagus or erosive disease
- Not currently on PPI or antihistamine
#Dementia
#Behavioral disturbances
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
- Developed agitation for which as needed IM Haldol was ordered
- Continue to monitor, proceed with delirium precautions. Overnight Seroquel given. Decrease Seroquel to 12.5mg as needed. Discussed with nursing that should try mitts prior to giving medications
- Avoid benzodiazepines for delirium
Thromboprophylaxis: SQ Lovenox
CODE STATUS: Full code
Disposition: SNF when medically stable
updated
I spent a total of 51 minutes with the patient or on the floor. More than 50% of this time involved counseling and coordination of care.
Anticipated Discharge: 24 - 48 hours
Subjective/Interval History
-
Date of Service: December 20, 2024
Much more awake today
Objective Data
-
Labs:
Laboratory Results
12/20/24 12/20/24
05:03 14:00
WBC 33.0 H
Hgb 9.0 L
Hct 27.1 L
Plt Count 288
Sodium 147 H Pending
Potassium 3.5
Chloride 110 H
Carbon Dioxide 30
BUN 21 H
Creatinine 0.8
Glucose 161 H
Calcium 8.6
Vital Signs:
Vital Signs
Temp Pulse Resp BP Pulse Ox
98.6 F 69 18 133/56 99
12/20/24 11:04 12/20/24 11:04 12/20/24 11:04 12/20/24 11:04 12/20/24 11:04
I&O
12/19/24 12/20/24 12/21/24
06:59 06:59 06:59
Intake Total 1600 / 1600 1035 / 1035
Balance 1600 / 1600 1035 / 1035
[2024-12-20 12:09] LABS: Glucose - Point of Care 282 mg/dl (70-99)
[2024-12-20] MEDS: NOVOLOG FLEXPEN-LOW RESISTANCE 3 UNITS SC (12:11)
[2024-12-20 14:22] LABS: Sodium 140 mmol/L (135-145)
[2024-12-20 17:06] LABS: Glucose - Point of Care 315 mg/dl (70-99)
[2024-12-20] MEDS: NORVASC 10 MG TUBE (17:06)
[2024-12-20] MEDS: LIPITOR 40 MG TUBE (17:06)
[2024-12-20] MEDS: COZAAR 100 MG TUBE (17:06)
[2024-12-20] MEDS: LOVENOX 40 MG SC (17:07)
[2024-12-20] MEDS: ZETIA 10 MG TUBE (17:07)
[2024-12-20] MEDS: NOVOLOG FLEXPEN-LOW RESISTANCE 4 UNITS SC (17:11)
[2024-12-20 21:13] LABS: Glucose - Point of Care 299 mg/dl (70-99)
[2024-12-20 23:48] LABS: Glucose - Point of Care 313 mg/dl (70-99)
[2024-12-21] VITALS (7 sets, daily range): BP systolic 113–143; BP diastolic 55–64
[2024-12-21] MEDS: NOVOLOG FLEXPEN-LOW RESISTANCE 4 UNITS SC (00:33)
[2024-12-21] MEDS: NOVOLOG FLEXPEN 18 UNITS SC ×4 (00:34→18:15)
[2024-12-21] MEDS: SYNTHROID 150 MCG TUBE (04:56)
[2024-12-21 05:54] LABS: Glucose - Point of Care 193 mg/dl (70-99)
[2024-12-21] MEDS: NOVOLOG FLEXPEN-LOW RESISTANCE 1 UNITS SC ×2 (06:06→18:14)
[2024-12-21 07:23] LABS: Blood Urea Nitrogen 22 mg/dl (9-20); Calcium 8.2 mg/dl (8.4-10.2); Carbon Dioxide 28 mmol/L (22-30); Chloride 106 mmol/L (98-107); Estimated Creatinine Clearance 67 ml/min; Glucose 185 mg/dl (70-99); Magnesium 1.9 mg/dl (1.6-2.3); Potassium 3.3 mmol/L (3.5-5.1); Sodium 139 mmol/L (135-145); eGFR > 60.00
[2024-12-21 07:24] LABS: Hematocrit 22.7 % (39.0-52.0); Hemoglobin 7.7 g/dL (13.0-18.0); Mean Corp Hgb Conc. 33.9 g/dL (33.0-37.0); Mean Corpuscular Volume 87.3 fL (80.0-94.0); Platelet Count 275 10^3/uL (130-400); Red Cell Dist. Width 14.8 % (11.5-14.5)
[2024-12-21 07:53] LABS: Nucleated Red Blood Cells % 0 % (-)
[2024-12-21] MEDS: MIRALAX TUBE (09:02)
[2024-12-21] MEDS: DESENEX/MITRAZOL/ZEASORB 1 APPLIC TOPICAL ×2 (09:04→21:14)
[2024-12-21] MEDS: FOLVITE 1 MG TUBE ×2 (09:05→21:12)
[2024-12-21] MEDS: PROTONIX IV 40 MG IV ×2 (09:05→21:13)
[2024-12-21] MEDS: NSS (PRESERVATIVE FREE) 10 ML IV ×2 (09:05→21:13)
[2024-12-21] MEDS: LOPRESSOR 100 MG TUBE (09:05)
[2024-12-21] MEDS: FERROUS SULFATE ORAL LIQUID 300 MG TUBE (09:05)
[2024-12-21] MEDS: VITAMIN D3 (cholecalciferol) 125 MCG TUBE (09:06)
[2024-12-21] MEDS: PLAVIX 75 MG TUBE (09:06)
[2024-12-21] MEDS: VITAMIN C 1000 MG TUBE (09:06)
[2024-12-21] MEDS: KCL ELIXIR 20 MEQ TUBE (09:06)
[2024-12-21] MEDS: ROBITUSSIN 200 MG TUBE ×4 (09:06→21:14)
[2024-12-21] MEDS: LANTUS 0.22 UNITS SC ×2 (09:26→21:12)
[2024-12-21 09:30] LABS: Glucose - Point of Care 159 mg/dl (70-99)
--- NOTE | 2024-12-21 11:41 | W.PN.HOSP.TC ---
Today's Communication/Plan
-
Monitor vital signs and see plan
Heme test stool
Continue with PPI twice daily
Continue with tube feeds
Continue with tube flushes
Discharge planning; needs SNF
Assessment / Plan
Assessment / Plan
General: Well Developed, No Apparent Distress and Appears Chronically Ill
HEENT: Normocephalic, Atraumatic, Moist Mucous Membranes and Anicteric
Respiratory: Clear to Auscultation and Non Labored Respirations
Cardiac: Regular Rhythm, S1/S2 and Tachycardic
GI: Soft, Nontender, Nondistended and Normal Bowel Sounds
Musculoskeletal: No Edema
Neuro: Awake,Other (facial droop present)
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
#Cerebrovascular disease
- Suspect ASCVD driven event within the left Jim-cerebrum/basal ganglia/thalamus with symptoms and Hx
- Initial CT scan without any acute findings, CTA showed carotid stenosis and bilateral M1-2 stenosis
- Repeat CT head showed signs of left basal ganglia and swan radiata infarct, deficits worsened
- repeat CT, demonstrates signs of evolving infarct, no ICH seen
- Was unable to tolerate MRI here due to agitation, inability to follow direction
- Recommended for DAPT, statin. now with PEG tube. started these meds through tube
- NIHSS waxes and wanes
Plan
- Resume Plavix and high intensity statin via PEG. Discussed; to continue aspirin and Plavix as patient was already on it for cardiac reasons with multiple PCI
- BP goal normotension, blood glucose control
- Monitor neurochecks and NIHSS
- Monitor tele
repeat CT head 12/19 negative for any hemorrhage
#Oropharyngeal dysphagia
#Aspiration
- Likely related to recent suspected CVA, evaluated by PROTOCOL OFFICER
- Recommended regular diet however nursing with concerns of aspirating thin liquids
- VSE with aspiration to all consistencies, possibly affected by Haldol he has received
- Continue with strict n.p.o. speech to continue follow
- GI consulted, s/p PEG tube on 12/15. On EGD with hiatal hernia and gastric ulcer. Finished PPI drip. Now on PPI twice daily
ok to use tube feed; started tube feeds. Monitor electrolytes
cough; cw guaifenesin
Anemia; hx of anemia of chronic disease
heme test stool given ulcers on recent EGD
on PPI BID
#Anion gap metabolic acidosis
- CO2 on morning BMP was 8, VBG with pH 7.27 and low pCO2, AG 20
- Suspect this is associated with poor intake, starvation ketosis
Resolved. offbicarbonate drip
- Planning for tube feeding as above
Hypernatremia likely secondary dehydration
also now getting water flushes through the tube which is increased. Na now 139, monitor
#Hypokalemia
replete
#Leukocytosis
#CML
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
- Antibiotics deferred on arrival, no obvious infectious findings at this time
- Differential without mention of basophils, would expect these to be elevated
Leukocytosis, chest x-ray without pneumonia. Monitor
#CAD s/p PCI x 6
#Dyslipidemia
- Home regimen includes DAPT with aspirin and Plavix, metoprolol tartrate twice daily
- Not currently on statin therapy as last lipid panel with LDL near 39, is on ezetimibe
- Follow-up repeat lipid panel as above, consider starting statin
- No signs of ACS at this time
#NIDDM
- A1c 8.7%; no known microvascular disease though likely associated with PAD
- Home regimen includes metformin and saxagliptin;
- Was transition to ISS with Accu-Cheks while inpatient. Given recent stroke and uncontrolled diabetes, continue with Lantus and aspart. Diabetes KENNEL SUPERVISOR following.
#Iatrogenic hypothyroidism
#S/P thyroidectomy
- Home regimen includes levothyroxine 150 mcg daily
- No signs or symptoms of thyroid dysfunction at this time
#Primary hypertension
- Home regimen includes amlodipine, metoprolol tartrate, losartan
Restarted home regimen since now has PEG
- Continue with remainder of home regimen and monitor vitals
- Blood pressure goal normotension
#GERD
- No known history of Suarez's esophagus or erosive disease
- Not currently on PPI or antihistamine
#Dementia
#Behavioral disturbances
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
- Developed agitation for which as needed IM Haldol was ordered
- Continue to monitor, proceed with delirium precautions. Overnight Seroquel given. Decrease Seroquel to 12.5mg as needed. Discussed with nursing that should try mitts prior to giving medications
- Avoid benzodiazepines for delirium
Thromboprophylaxis: SQ Lovenox
CODE STATUS: Full code
Disposition: SNF when medically stable.
I spent a total of 52 minutes with the patient or on the floor. More than 50% of this time involved counseling and coordination of care.
Anticipated Discharge: 24 - 48 hours
Subjective/Interval History
-
Date of Service: December 21, 2024
No agitation overnight
Objective Data
-
Labs:
Laboratory Results
12/21/24
06:26
WBC 28.0 H
Hgb 7.7 L
Hct 22.7 L
Plt Count 275
Sodium 139
Potassium 3.3 L
Chloride 106
Carbon Dioxide 28
BUN 22 H
Creatinine 0.7
Glucose 185 H
Calcium 8.2 L
Vital Signs:
Vital Signs
Temp Pulse Resp BP Pulse Ox
98.7 F 66 16 120/61 100
12/21/24 11:26 12/21/24 11:26 12/21/24 11:26 12/21/24 11:26 12/21/24 11:26
I&O
10/25/25 10/26/25 10/27/25
06:59 06:59 06:59
Intake Total 1035 / 1035 1125 / 1125
Balance 1035 / 1035 1125 / 1125
[2024-12-21 12:56] LABS: Glucose - Point of Care 252 mg/dl (70-99)
[2024-12-21] MEDS: NOVOLOG FLEXPEN-LOW RESISTANCE 3 UNITS SC (12:57)
[2024-12-21 18:12] LABS: Glucose - Point of Care 167 mg/dl (70-99)
[2024-12-21] MEDS: COZAAR 100 MG TUBE (18:13)
[2024-12-21] MEDS: NORVASC 10 MG TUBE (18:14)
[2024-12-21] MEDS: LOVENOX 40 MG SC (18:14)
[2024-12-21] MEDS: LIPITOR 40 MG TUBE (18:14)
[2024-12-21] MEDS: ZETIA 10 MG TUBE (18:15)
[2024-12-21 20:04] LABS: Glucose - Point of Care 163 mg/dl (70-99)
[2024-12-21 22:38] LABS: Hematocrit 24.2 % (39.0-52.0); Hemoglobin 8.5 g/dL (13.0-18.0)
[2024-12-21 23:47] LABS: Glucose - Point of Care 169 mg/dl (70-99)
[2024-12-22] MEDS: NOVOLOG FLEXPEN-LOW RESISTANCE 1 UNITS SC ×3 (00:05→18:23)
[2024-12-22] MEDS: NOVOLOG FLEXPEN 18 UNITS SC ×4 (00:06→18:23)
[2024-12-22 03:55] VITALS: BP 140/67
[2024-12-22] MEDS: SYNTHROID 150 MCG TUBE (04:51)
[2024-12-22 05:29] LABS: Glucose - Point of Care 113 mg/dl (70-99)
[2024-12-22] MEDS: NOVOLOG FLEXPEN-LOW RESISTANCE SC (05:50)
[2024-12-22 06:39] LABS: Hematocrit 26.0 % (39.0-52.0); Hemoglobin 8.8 g/dL (13.0-18.0); Mean Corp Hgb Conc. 33.8 g/dL (33.0-37.0); Mean Corpuscular Volume 87.0 fL (80.0-94.0); Platelet Count 286 10^3/uL (130-400); Red Cell Dist. Width 14.8 % (11.5-14.5)
[2024-12-22 06:50] LABS: Blood Urea Nitrogen 16 mg/dl (9-20); Calcium 8.1 mg/dl (8.4-10.2); Carbon Dioxide 29 mmol/L (22-30); Chloride 104 mmol/L (98-107); Estimated Creatinine Clearance 78 ml/min; Glucose 119 mg/dl (70-99); Magnesium 1.8 mg/dl (1.6-2.3); Potassium 3.7 mmol/L (3.5-5.1); Sodium 134 mmol/L (135-145); eGFR > 60.00
[2024-12-22 07:00] VITALS: BP 117/56
--- NOTE | 2024-12-22 07:26 | PN.DE.MGMTRT ---
Insulin Management
- -
12/22/2024: Diabetes Management Followup
84 year old male admitted 12/09 with Acute CVA of the left basal ganglia and swan radiata. Diabetes Management consult 12/16. PMH: CAD s/p PCI x6, DM2, hypothyroidism, HTN, CML, dementia and T2DM. Patient was admitted with right-sided weakness,
workup revealing severe narrowing in right P2 segment, treating as acute CVA. Prior to admission was taking Saxagliptin 5mg daily, Metformin 500 mg in AM and 1000 mg in PM. states patient was not testing his blood sugars or adhering to any
specific diet. A1C 8.7%, Cr 0.6, eGFR >60
Patient A/A, non-verbal on exam, noted for right sided weakness and facial droop, unable to discuss diabetes care plan. at bedside, very supportive.
Patient was noted for Oropharyngeal dysphagia with concerns of aspirating thin liquids. He underwent VSE and was noted for aspiration to all consistencies.
12/15 s/p PEG tube placement with initiation of tube feeds, continued @ 60cc/hr with persistent Hyperglycemia.
Lantus was changed to BID and increased dose to 22 units. Glucose markedly improved.
12/21 glucose range was 159 to 253. Fasting glucose is 119 V, 155 POC today.
Will cont Lantus to 22 units BID and NovoLog 18 units Q6 hrs. Cont low corrective insulin Q6 hrs.
Anticipate higher insulin requirements while on TF.
Discussed with Nurse. Cont to follow
Diabetes History
- -
Type of Diabetes: 2 requiring insulin
Pre-Admission Diabetes Regimen
12/22/24
06:05
Creatinine 0.6 L
Lab Results
Hemoglobin A1c 8.7 % (4.0-5.6) H 12/10/24 06:38
Insulin Pump Settings
IP Diabetes Regimen
12/21/24 12/21/24 12/21/24
09:29 12:55 18:11
Glucose
POC Glucose 159 H 252 H 167 H
12/21/24 12/21/24 12/22/24
20:02 23:44 05:28
Glucose
POC Glucose 163 H 169 H 113 H
12/22/24
06:05
Glucose 119 H
POC Glucose
Meal type: Lunch
Meal type: Breakfast
Patient Education
[2024-12-22] MEDS: MIRALAX TUBE (08:04)
[2024-12-22] MEDS: DESENEX/MITRAZOL/ZEASORB 1 APPLIC TOPICAL ×2 (08:04→20:10)
[2024-12-22] MEDS: FERROUS SULFATE ORAL LIQUID 300 MG TUBE (08:04)
[2024-12-22] MEDS: VITAMIN C 1000 MG TUBE (08:05)
[2024-12-22] MEDS: FOLVITE 1 MG TUBE ×2 (08:05→20:13)
[2024-12-22] MEDS: ROBITUSSIN 200 MG TUBE ×4 (08:05→21:27)
[2024-12-22] MEDS: LOPRESSOR 100 MG TUBE (08:05)
[2024-12-22] MEDS: NSS (PRESERVATIVE FREE) 10 ML IV ×2 (08:06→20:11)
[2024-12-22] MEDS: PROTONIX IV 40 MG IV ×2 (08:06→20:11)
[2024-12-22] MEDS: PLAVIX 75 MG TUBE (08:06)
[2024-12-22] MEDS: VITAMIN D3 (cholecalciferol) 125 MCG TUBE (08:06)
[2024-12-22] MEDS: LANTUS 0.22 UNITS SC ×2 (08:06→22:19)
[2024-12-22 08:20] LABS: Normal RBC Morphology Yes; Platelets Checked Yes; Total Cells Counted 100
[2024-12-22 08:23] LABS: Absolute Neutrophils -Man Diff 24.2 10^3/uL (1.4-6.5)
[2024-12-22 08:23] LABS: Glucose - Point of Care 155 mg/dl (70-99)
[2024-12-22 11:05] VITALS: BP 129/57
--- NOTE | 2024-12-22 11:18 | W.PN.HOSP.TC ---
Today's Communication/Plan
-
Disposition planning
Continue DAPT and statin
Continue antihypertensives and antihyperglycemic
Continue tube feeds
Assessment / Plan
Assessment / Plan
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
#Cerebrovascular disease
- Suspect ASCVD driven event within the left Jim-cerebrum/basal ganglia/thalamus with symptoms and Hx
- Has extensive ASCVD history, on DAPT and statin for obstructive CAD s/p percutaneous coronary intervention x6
- Initial CT scan without any acute findings, CTA showed carotid stenosis and bilateral M1-2 stenosis
- Repeat CT head showed signs of left basal ganglia and swan radiata infarct, deficits worsened
- Repeat CT, demonstrates signs of evolving infarct, no ICH seen; repeat on 12/19 without change
- Was unable to tolerate MRI here due to agitation, inability to follow direction
- NIHSS waxes and wanes
Plan
- Continue DAPT with aspirin and Plavix via PEG tube due to history of multiple PCI
- Continue high intensity statin via PEG with LDL goal <70
- BP goal normotension, blood glucose control
- Monitor neurochecks and NIHSS
- Monitor tele
#Oropharyngeal dysphagia
#Aspiration
- Likely related to recent suspected CVA, evaluated by REHABILITATOR
- GI consulted, s/p PEG tube on 12/15; on Jevity 1.5 at 55 mL/h and 60 mL H2O per hour
#Peptic ulcer disease
#H/O anemia of chronic disease
- Suspect stress-induced gastric ulcer; EGD here with hiatal hernia and gastric ulcer.
- S/p IV PPI drip, now on twice daily IV PPI with stable hemoglobin
- Plan for 1-2 months of twice daily PPI via PEG at DC
- Avoid NSAIDs as able
#Anion gap metabolic acidosis
- CO2 on morning BMP was 8, VBG with pH 7.27 and low pCO2, AG 20
- Suspect this is associated with poor intake, starvation ketosis
- Resolved with bicarbonate drip and then initiation of tube feeds
#Leukocytosis
#CML
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
- Antibiotics deferred on arrival, no obvious infectious findings at this time
- Differential without mention of basophils, would expect these to be elevated
#CAD s/p PCI x 6
#Dyslipidemia
- Home regimen includes DAPT with aspirin and Plavix, metoprolol tartrate twice daily
- Not currently on statin therapy as last lipid panel with LDL near 39, is on ezetimibe
- Follow-up repeat lipid panel as above, consider starting statin
- No signs of ACS at this time
#NIDDM
- A1c 8.7%; no known microvascular disease though likely associated with PAD
- Home regimen includes metformin and saxagliptin; Was transitioned to ISS with Accu-Cheks while inpatient.
- With major stroke and deficits have transition to insulin regimen; diabetic nurse practitioner consulted
- Continue with glargine insulin 22 units twice daily and aspart insulin 18 units every 6 hours with ISS
#Iatrogenic hypothyroidism
#S/P thyroidectomy
- Home regimen includes levothyroxine 150 mcg daily
- No signs or symptoms of thyroid dysfunction at this time
#Primary hypertension
- Home regimen includes amlodipine, metoprolol tartrate, losartan
- Home regimen has been converted from oral to via PEG
- Blood pressure goal normotension
#GERD
- No known history of Suarez's esophagus or erosive disease
- Not currently on PPI or antihistamine at time of admission
- Started PPI as above for stress-induced ulcer
#Dementia
#Behavioral disturbances
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
- Developed agitation for which as needed IM Haldol was ordered
- Continue to monitor, proceed with delirium precautions.
- Avoid benzodiazepines for delirium
Thromboprophylaxis: SQ Lovenox
CODE STATUS: Full code
Disposition: SNF when medically stable.
I spent a total of 47 minutes with the patient or on the floor. More than 50% of this time involved counseling and coordination of care
Discussed with patient's
Anticipated Discharge: Within 24 hours
Subjective/Interval History
-
Date of Service: December 22, 2024
Seen and examined at the bedside. No acute events reported overnight. AFVSS this morning
Labs this morning improved with sodium at 134, hemoglobin remained stable at 8.8. Tolerating tube feeds well at current rate
ROS limited by his neurologic deficits. at the bedside provided updates
Objective Data
-
Labs:
Laboratory Results
12/22/24
06:05
WBC 34.1 H
Hgb 8.8 L
Hct 26.0 L
Plt Count 286
Sodium 134 L
Potassium 3.7
Chloride 104
Carbon Dioxide 29
BUN 16
Creatinine 0.6 L
Glucose 119 H
Calcium 8.1 L
Vital Signs:
Vital Signs
Temp Pulse Resp BP Pulse Ox
98.6 F 82 18 117/56 100
12/22/24 07:00 12/22/24 07:00 12/22/24 07:00 12/22/24 07:00 12/22/24 08:10
I&O
12/21/24 12/22/24 12/23/24
06:59 06:59 06:59
Intake Total 5 / 5 2185 / 2185
Balance 1124 / 1124 2185 / 2185
Review of Systems
-
History Source: Patient
All other systems: Reviewed and negative
Physical Exam
-
General: Well Developed, No Apparent Distress and Appears Chronically Ill
HEENT: Normocephalic, Atraumatic, Moist Mucous Membranes, Anicteric and PERRLA
Respiratory: Clear to Auscultation and Non Labored Respirations; Negative Accessory Resp Muscle Use
Cardiac: Regular Rhythm and S1/S2; Negative Murmur, Rub or Gallop
GI: Soft, Nontender, Nondistended, Normal Bowel Sounds and Peg Tube
Musculoskeletal: No Clubbing, No Cyanosis and No Edema
Skin: Warm and Dry; Negative Rash
Neuro: Awake, Alert, Oriented, DTR's Intact & Symmetrica and Other (Flaccid paresis of RUE and RLE; facial droop present though improved, no other gross CN deficits observed); Negative Tremors
Psych: Calm
Data Reviewed
-
Labs: Labs Reviewed by me, Discussed with Patient and Discussed with Family
[2024-12-22 11:47] LABS: Glucose - Point of Care 186 mg/dl (70-99)
[2024-12-22 15:05] VITALS: BP 113/60
--- NOTE | 2024-12-22 16:44 | CM ---
Spoke with provided pacc data
picked [facility] Ref[facility] placed.
Pt less lethargic.
Tube feeding via Peg at goal rate.
Will need auth .
[facility] obtained auth
[2024-12-22] MEDS: NORVASC 10 MG TUBE (17:07)
[2024-12-22] MEDS: LOVENOX 40 MG SC (17:08)
[2024-12-22] MEDS: ZETIA 10 MG TUBE (17:08)
[2024-12-22] MEDS: LIPITOR 40 MG TUBE (17:08)
[2024-12-22] MEDS: COZAAR 100 MG TUBE (17:08)
[2024-12-22 18:23] LABS: Glucose - Point of Care 158 mg/dl (70-99)
[2024-12-22 19:09] VITALS: BP 121/56
[2024-12-22 21:14] LABS: Glucose - Point of Care 101 mg/dl (70-99)
[2024-12-22 23:32] VITALS: BP 113/58
[2024-12-23] VITALS (7 sets, daily range): BP systolic 119–145; BP diastolic 53–67; PULSE 84–85; O2SAT 98–99
[2024-12-23 00:08] LABS: Glucose - Point of Care 123 mg/dl (70-99)
[2024-12-23] MEDS: NOVOLOG FLEXPEN-LOW RESISTANCE SC (00:16)
[2024-12-23] MEDS: NOVOLOG FLEXPEN 18 UNITS SC ×4 (00:18→17:30)
[2024-12-23 05:09] LABS: Glucose - Point of Care 200 mg/dl (70-99)
[2024-12-23] MEDS: NOVOLOG FLEXPEN-LOW RESISTANCE 2 UNITS SC (05:19)
[2024-12-23] MEDS: SYNTHROID 150 MCG TUBE (06:18)
[2024-12-23] MEDS: DESENEX/MITRAZOL/ZEASORB 1 APPLIC TOPICAL ×2 (08:09→20:29)
[2024-12-23] MEDS: PLAVIX 75 MG TUBE (08:10)
[2024-12-23] MEDS: FERROUS SULFATE ORAL LIQUID 300 MG TUBE (08:10)
[2024-12-23] MEDS: ROBITUSSIN 200 MG TUBE ×4 (08:10→21:02)
[2024-12-23] MEDS: NSS (PRESERVATIVE FREE) 10 ML IV ×2 (08:10→20:31)
[2024-12-23] MEDS: VITAMIN C 1000 MG TUBE (08:10)
[2024-12-23] MEDS: LOPRESSOR 100 MG TUBE (08:10)
[2024-12-23] MEDS: PROTONIX IV 40 MG IV ×2 (08:10→20:30)
[2024-12-23] MEDS: FOLVITE 1 MG TUBE ×2 (08:10→20:29)
[2024-12-23] MEDS: VITAMIN D3 (cholecalciferol) 125 MCG TUBE (08:10)
[2024-12-23] MEDS: MIRALAX TUBE (08:11)
[2024-12-23 08:27] LABS: Hematocrit 23.1 % (39.0-52.0); Hemoglobin 8.1 g/dL (13.0-18.0); Mean Corp Hgb Conc. 35.1 g/dL (33.0-37.0); Mean Corpuscular Volume 85.2 fL (80.0-94.0); Nucleated Red Blood Cells % 0 % (-); Platelet Count 287 10^3/uL (130-400); Red Cell Dist. Width 14.9 % (11.5-14.5)
[2024-12-23 08:33] LABS: Blood Urea Nitrogen 14 mg/dl (9-20); Calcium 7.9 mg/dl (8.4-10.2); Carbon Dioxide 27 mmol/L (22-30); Chloride 99 mmol/L (98-107); Estimated Creatinine Clearance 67 ml/min; Glucose 97 mg/dl (70-99); Magnesium 1.8 mg/dl (1.6-2.3); Potassium 3.5 mmol/L (3.5-5.1); Sodium 133 mmol/L (135-145); eGFR > 60.00
--- NOTE | 2024-12-23 08:33 | PN.DE.MGMTRT ---
Insulin Management
- -
12/23/2024: Diabetes Management Followup
84 year old male admitted 12/09 with Acute CVA of the left basal ganglia and swan radiata. Diabetes Management consult 12/16. PMH: CAD s/p PCI x6, DM2, hypothyroidism, HTN, CML, dementia and T2DM. Patient was admitted with right-sided weakness,
workup revealing severe narrowing in right P2 segment, treating as acute CVA. Prior to admission was taking Saxagliptin 5mg daily, Metformin 500 mg in AM and 1000 mg in PM. states patient was not testing his blood sugars or adhering to any
specific diet. A1C 8.7%, Cr 0.6, eGFR >60
Patient awake, non-verbal on exam, noted for right sided weakness and facial droop, unable to discuss diabetes care plan. at bedside, very supportive.
Patient was noted for Oropharyngeal dysphagia with concerns of aspirating thin liquids. He underwent VSE and was noted for aspiration to all consistencies.
12/15 s/p PEG tube placement with initiation of tube feeds, continued @ 55cc/hr with persistent Hyperglycemia.
Lantus was changed to BID and increased dose to 22 units. Glucose markedly improved.
12/22 glucose range was 101 to 186.
12/23 Fasting glucose is 200 today.
Will cont Lantus to 22 units BID and NovoLog 18 units Q6 hrs. Cont low corrective insulin Q6 hrs.
Anticipate higher insulin requirements while on TF.
Discussed with Nurse. Cont to follow
Diabetes History
- -
Type of Diabetes: 2 requiring insulin
Pre-Admission Diabetes Regimen
Lab Results
Hemoglobin A1c 8.7 % (4.0-5.6) H 12/10/24 06:38
Insulin Pump Settings
IP Diabetes Regimen
12/22/24 12/22/24 12/22/24
11:46 18:21 21:12
POC Glucose 186 H 158 H 101 H
12/23/24 12/23/24
00:07 05:07
POC Glucose 123 H 200 H
Patient Education
[2024-12-23] MEDS: LANTUS 0.22 UNITS SC ×2 (08:42→20:30)
[2024-12-23 08:45] LABS: Glucose - Point of Care 108 mg/dl (70-99)
--- NOTE | 2024-12-23 11:33 | W.PN.HOSP.TC ---
Today's Communication/Plan
-
Continue current management
Plan to discharge to SNF once authorization complete
Assessment / Plan
Assessment / Plan
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
#Cerebrovascular disease
- Suspect ASCVD driven event within the left Jim-cerebrum/basal ganglia/thalamus with symptoms and Hx
- Has extensive ASCVD history, on DAPT and statin for obstructive CAD s/p percutaneous coronary intervention x6
- Initial CT scan without any acute findings, CTA showed carotid stenosis and bilateral M1-2 stenosis
- Repeat CT head showed signs of left basal ganglia and swan radiata infarct, deficits worsened
- Repeat CT, demonstrates signs of evolving infarct, no ICH seen; repeat on 12/19 without change
- Was unable to tolerate MRI here due to agitation, inability to follow direction
- NIHSS waxes and wanes
Plan
- Continue DAPT with aspirin and Plavix via PEG tube due to history of multiple PCI
- Continue high intensity statin via PEG with LDL goal <70
- BP goal normotension, blood glucose control
- Monitor neurochecks and NIHSS
- Monitor tele
#Oropharyngeal dysphagia
#Aspiration
- Likely related to recent suspected CVA, evaluated by INSURANCE POLICY ISSUE CLERK
- GI consulted, s/p PEG tube on 12/15; on Jevity 1.5 at 55 mL/h and 60 mL H2O per hour
#Peptic ulcer disease
#H/O anemia of chronic disease
- Suspect stress-induced gastric ulcer; EGD here with hiatal hernia and gastric ulcer.
- S/p IV PPI drip, now on twice daily IV PPI with stable hemoglobin
- Plan for 1-2 months of twice daily PPI via PEG at DC
- Avoid NSAIDs as able
#Anion gap metabolic acidosis
- CO2 on morning BMP was 8, VBG with pH 7.27 and low pCO2, AG 20
- Suspect this is associated with poor intake, starvation ketosis
- Resolved with bicarbonate drip and then initiation of tube feeds
#Leukocytosis
#CML
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
- Antibiotics deferred on arrival, no obvious infectious findings at this time
- Differential without mention of basophils, would expect these to be elevated
#CAD s/p PCI x 6
#Dyslipidemia
- Home regimen includes DAPT with aspirin and Plavix, metoprolol tartrate twice daily
- Not currently on statin therapy as last lipid panel with LDL near 39, is on ezetimibe
- Follow-up repeat lipid panel as above, consider starting statin
- No signs of ACS at this time
#NIDDM
- A1c 8.7%; no known microvascular disease though likely associated with PAD
- Home regimen includes metformin and saxagliptin; Was transitioned to ISS with Accu-Cheks while inpatient.
- With major stroke and deficits have transition to insulin regimen; diabetic nurse practitioner consulted
- Continue with glargine insulin 22 units twice daily and aspart insulin 18 units every 6 hours with ISS
#Iatrogenic hypothyroidism
#S/P thyroidectomy
- Home regimen includes levothyroxine 150 mcg daily
- No signs or symptoms of thyroid dysfunction at this time
#Primary hypertension
- Home regimen includes amlodipine, metoprolol tartrate, losartan
- Home regimen has been converted from oral to via PEG
- Blood pressure goal normotension
#GERD
- No known history of Suarez's esophagus or erosive disease
- Not currently on PPI or antihistamine at time of admission
- Started PPI as above for stress-induced ulcer
#Dementia
#Behavioral disturbances
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
- Developed agitation for which as needed IM Haldol was ordered
- Continue to monitor, proceed with delirium precautions.
- Avoid benzodiazepines for delirium
Thromboprophylaxis: SQ Lovenox
CODE STATUS: Full code
Disposition: SNF when medically stable.
I spent a total of 40 minutes with the patient or on the floor. More than 50% of this time involved counseling and coordination of care
Discussed with patient's
Anticipated Discharge: Within 24 hours
Subjective/Interval History
-
Date of Service: December 23, 2024
Seen and examined at the bedside. No acute events reported overnight. AFVSS this
Continues to tolerate tube feeds at current rate. Labs overall stable.
ROS limited by the acuity of the state, chronic dementia.
Objective Data
-
Labs:
Laboratory Results
12/23/24
07:41
WBC 41.5 H*
Hgb 8.1 L
Hct 23.1 L
Plt Count 287
Sodium 133 L
Potassium 3.5
Chloride 99
Carbon Dioxide 27
BUN 14
Creatinine 0.7
Glucose 97
Calcium 7.9 L
Vital Signs:
Vital Signs
Temp Pulse Resp BP Pulse Ox
97.9 F 92 16 145/59 100
12/23/24 07:15 12/23/24 07:15 12/23/24 07:15 12/23/24 07:15 12/23/24 08:10
I&O
12/22/24 12/23/24 12/24/24
06:59 06:59 06:59
Intake Total 2184
Balance 2184
Review of Systems
-
Unable to obtain full review of systems at this time due to: Dementia and Acuity
Physical Exam
-
General: Well Developed, No Apparent Distress and Appears Chronically Ill
HEENT: Normocephalic, Atraumatic, Moist Mucous Membranes, Anicteric and PERRLA; Negative Good Dentition
Respiratory: Clear to Auscultation and Non Labored Respirations; Negative Accessory Resp Muscle Use
Cardiac: Regular Rhythm and S1/S2; Negative Murmur, Rub or Gallop
GI: Soft, Nontender, Nondistended, Normal Bowel Sounds and Peg Tube
Musculoskeletal: No Clubbing, No Cyanosis and No Edema
Skin: Warm and Dry; Negative Rash
Neuro: Awake, Alert, Oriented and Other (Right sided flaccid hemiparesis, mild facial droop; otherwise no obvious FND); Negative Tremors
Psych: Calm
Data Reviewed
-
Labs: Labs Reviewed by me, Discussed with Nurse and Discussed with Patient
[2024-12-23 12:11] LABS: Glucose - Point of Care 174 mg/dl (70-99)
[2024-12-23] MEDS: NOVOLOG FLEXPEN-LOW RESISTANCE 1 UNITS SC ×2 (12:26→17:30)
--- NOTE | 2024-12-23 17:05 | CM ---
As per care port [facility] had no beds,
Spoke with Herminia at [facility] no beds today,
LM with [phone],
[facility] no beds.
Pt on goal rate for tube feedings via Peg tube.
supportive . notified of above.
Auth needs.
[facility] SNF obtained auth
[2024-12-23] MEDS: LOVENOX 40 MG SC (17:23)
[2024-12-23] MEDS: NORVASC 10 MG TUBE (17:24)
[2024-12-23] MEDS: ZETIA 10 MG TUBE (17:24)
[2024-12-23] MEDS: COZAAR 100 MG TUBE (17:24)
[2024-12-23] MEDS: LIPITOR 40 MG TUBE (17:24)
[2024-12-23 17:29] LABS: Glucose - Point of Care 163 mg/dl (70-99)
[2024-12-23 20:16] LABS: Glucose - Point of Care 105 mg/dl (70-99)
[2024-12-23 23:51] LABS: Glucose - Point of Care 151 mg/dl (70-99)
[2024-12-24] MEDS: NOVOLOG FLEXPEN 18 UNITS SC ×5 (00:06→23:50)
[2024-12-24] MEDS: NOVOLOG FLEXPEN-LOW RESISTANCE 1 UNITS SC (00:06)
[2024-12-24] MEDS: TYLENOL ORAL SOLUTION 650 MG TUBE ×2 (02:52→17:12)
[2024-12-24] MEDS: SYNTHROID 150 MCG TUBE (05:39)
[2024-12-24 05:51] LABS: Glucose - Point of Care 258 mg/dl (70-99)
[2024-12-24] MEDS: NOVOLOG FLEXPEN-LOW RESISTANCE 3 UNITS SC ×2 (06:05→11:57)
[2024-12-24 06:53] LABS: Hematocrit 22.6 % (39.0-52.0); Hemoglobin 7.8 g/dL (13.0-18.0); Mean Corp Hgb Conc. 34.5 g/dL (33.0-37.0); Mean Corpuscular Volume 89.3 fL (80.0-94.0); Platelet Count 269 10^3/uL (130-400); Red Cell Dist. Width 15.1 % (11.5-14.5)
[2024-12-24 07:00] VITALS: BP 124/61
[2024-12-24 07:10] LABS: Blood Urea Nitrogen 10 mg/dl (9-20); Calcium 7.6 mg/dl (8.4-10.2); Carbon Dioxide 27 mmol/L (22-30); Chloride 95 mmol/L (98-107); Estimated Creatinine Clearance 67 ml/min; Glucose 239 mg/dl (70-99); Magnesium 1.8 mg/dl (1.6-2.3); Potassium 3.7 mmol/L (3.5-5.1); Sodium 126 mmol/L (135-145); eGFR > 60.00
[2024-12-24 07:32] LABS: Absolute Neutrophils -Man Diff 34.1 10^3/uL (1.4-6.5)
[2024-12-24 07:33] LABS: Anisocytosis 1+; Hypochromasia 1+; Normal RBC Morphology No; Platelets Checked Yes
[2024-12-24 07:34] LABS: Polychromasia 1+; Total Cells Counted 100
[2024-12-24] MEDS: NSS (PRESERVATIVE FREE) 10 ML IV ×2 (08:06→21:25)
[2024-12-24] MEDS: MIRALAX 17 GRAMS TUBE (08:06)
[2024-12-24] MEDS: PROTONIX IV 40 MG IV ×2 (08:07→21:25)
[2024-12-24] MEDS: FERROUS SULFATE ORAL LIQUID 300 MG TUBE (08:07)
[2024-12-24] MEDS: ROBITUSSIN 200 MG TUBE ×4 (08:07→21:25)
[2024-12-24] MEDS: VITAMIN D3 (cholecalciferol) 125 MCG TUBE (08:07)
[2024-12-24] MEDS: FOLVITE 1 MG TUBE ×2 (08:07→21:25)
[2024-12-24] MEDS: LOPRESSOR 100 MG TUBE (08:07)
[2024-12-24] MEDS: VITAMIN C 1000 MG TUBE (08:07)
[2024-12-24] MEDS: PLAVIX 75 MG TUBE (08:07)
[2024-12-24] MEDS: FLUSH (NSS) 1 FLUSH IV (08:08)
[2024-12-24] MEDS: LANTUS 0.22 UNITS SC (08:08)
[2024-12-24] MEDS: DESENEX/MITRAZOL/ZEASORB 1 APPLIC TOPICAL ×2 (08:09→21:22)
--- NOTE | 2024-12-24 08:18 | PN.DE.MGMTRT ---
Insulin Management
- -
12/24/2024: Diabetes Management Followup
84 year old male admitted 12/09 with Acute CVA of the left basal ganglia and swan radiata. Diabetes Management consult 12/16. PMH: CAD s/p PCI x6, DM2, hypothyroidism, HTN, CML, dementia and T2DM. Patient was admitted with right-sided weakness,
workup revealing severe narrowing in right P2 segment, treating as acute CVA. Prior to admission was taking Saxagliptin 5mg daily, Metformin 500 mg in AM and 1000 mg in PM. states patient was not testing his blood sugars or adhering to any
specific diet. A1C 8.7%, Cr 0.7, eGFR >60
Patient awake, non-verbal on exam, noted for right sided weakness and facial droop, unable to discuss diabetes care plan. at bedside, very supportive.
Patient was noted for Oropharyngeal dysphagia with concerns of aspirating thin liquids. He underwent VSE and was noted for aspiration to all consistencies.
12/15 s/p PEG tube placement with initiation of tube feeds.
Lantus was changed to BID and increased dose to 22 units. Glucose markedly improved.
12/23 glucose range was 105 to 200.
12/24 Fasting glucose is 258 today. Tube feeds continue @ 55 ml/hr. Will continue Lantus to 22 units in AM, increase HS lantus to 24 units as fasting glucose has been > 200 2 consecutive days. Will continue NovoLog 18 units Q6 hrs. Cont low
corrective insulin Q6 hrs.
Anticipate higher insulin requirements while on TF.
Discussed with Nurse. Cont to follow
Diabetes History
- -
Type of Diabetes: 2 requiring insulin
Pre-Admission Diabetes Regimen
12/23/24 12/24/24
07:41 06:05
Creatinine 0.7 0.7
Lab Results
Hemoglobin A1c 8.7 % (4.0-5.6) H 12/10/24 06:38
Insulin Pump Settings
IP Diabetes Regimen
12/23/24 12/23/24 12/23/24
07:41 08:44 12:10
Glucose 97
POC Glucose 108 H 174 H
12/23/24 12/23/24 12/23/24
17:27 20:14 23:51
Glucose
POC Glucose 163 H 105 H 151 H
12/24/24 12/24/24
05:50 06:05
Glucose 239 H
POC Glucose 258 H
Meal type: Dinner
Meal type: Lunch
Patient Education
--- NOTE | 2024-12-24 08:53 | W.PN.HOSP.TC ---
Today's Communication/Plan
-
Repeat BMP
Reduce free water flushes to 45 mL/h for now
Continue with SNF planning
Assessment / Plan
Assessment / Plan
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
#Cerebrovascular disease
- Suspect ASCVD driven event within the left Jim-cerebrum/basal ganglia/thalamus with symptoms and Hx
- Has extensive ASCVD history, on DAPT and statin for obstructive CAD s/p percutaneous coronary intervention x6
- Initial CT scan without any acute findings, CTA showed carotid stenosis and bilateral M1-2 stenosis
- Repeat CT head showed signs of left basal ganglia and swan radiata infarct, deficits worsened
- Repeat CT, demonstrates signs of evolving infarct, no ICH seen; repeat on 12/19 without change
- Was unable to tolerate MRI here due to agitation, inability to follow direction
- NIHSS waxes and wanes, generally improved
Plan
- Continue DAPT with aspirin and Plavix via PEG tube due to history of multiple PCI
- Continue high intensity statin via PEG with LDL goal <70
- BP goal normotension, blood glucose control
- Monitor neurochecks and NIHSS
- Monitor tele
#Hyponatremia
- Previously with hypernatremia, corrected after increased free water flush to 60 mL/h
- Most recent labs with serum sodium down from 134-126; ordered repeat BMP which is pending
- Decrease free water flushes to 45 mL/h for now and continue to trend BMP
- If continuing to worsen check urine osmolality, urine sodium, serum osmolality
#Oropharyngeal dysphagia
#Aspiration
- Likely related to recent suspected CVA, evaluated by NUCLEAR REACTOR OPERATOR
- GI consulted, s/p PEG tube on 12/15; on Jevity 1.5 at 55 mL/h and 60 mL H2O per hour
#Peptic ulcer disease
#H/O anemia of chronic disease
- Suspect stress-induced gastric ulcer; EGD here with hiatal hernia and gastric ulcer.
- S/p IV PPI drip, now on twice daily IV PPI with stable hemoglobin
- Plan for 1-2 months of twice daily PPI via PEG at DC
- Avoid NSAIDs as able
#Anion gap metabolic acidosis
- CO2 on morning BMP was 8, VBG with pH 7.27 and low pCO2, AG 20
- Suspect this is associated with poor intake, starvation ketosis
- Resolved with bicarbonate drip and then initiation of tube feeds
#Leukocytosis
#CML
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
- Antibiotics deferred on arrival, no obvious infectious findings at this time
- Differential without mention of basophils, would expect these to be elevated
#CAD s/p PCI x 6
#Dyslipidemia
- Home regimen includes DAPT with aspirin and Plavix, metoprolol tartrate twice daily
- Not currently on statin therapy as last lipid panel with LDL near 39, is on ezetimibe
- Follow-up repeat lipid panel as above, consider starting statin
- No signs of ACS at this time
#NIDDM
- A1c 8.7%; no known microvascular disease though likely associated with PAD
- Home regimen includes metformin and saxagliptin; Was transitioned to ISS with Accu-Cheks while inpatient.
- With major stroke and deficits have transition to insulin regimen; diabetic nurse practitioner consulted
- Continue with glargine insulin 22 units twice daily and aspart insulin 18 units every 6 hours with ISS
#Iatrogenic hypothyroidism
#S/P thyroidectomy
- Home regimen includes levothyroxine 150 mcg daily
- No signs or symptoms of thyroid dysfunction at this time
#Primary hypertension
- Home regimen includes amlodipine, metoprolol tartrate, losartan
- Home regimen has been converted from oral to via PEG
- Blood pressure goal normotension
#GERD
- No known history of Suarez's esophagus or erosive disease
- Not currently on PPI or antihistamine at time of admission
- Started PPI as above for stress-induced ulcer
#Dementia
#Behavioral disturbances
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
- Developed agitation for which as needed IM Haldol was ordered
- Continue to monitor, proceed with delirium precautions.
- Avoid benzodiazepines for delirium
Diet: Jevity 1.5 at 55 mL/h with 45 mL H2O flush per hour
Thromboprophylaxis: SQ Lovenox
CODE STATUS: Full code
Disposition: Pending acceptance to SNF
I spent a total of 40 minutes with the patient or on the floor. More than 50% of this time involved counseling and coordination of care
Discussed with patient's
Anticipated Discharge: Within 24 hours
Subjective/Interval History
-
Date of Service: December 24, 2024
Seen and examined at the bedside. No acute events reported overnight. AFVSS
Serum sodium dropped from 133-126. Repeat labs ordered with results pending. Free water flushes adjusted in the interim
ROS limited by neurologic deficits and dementia.
Objective Data
-
Labs:
Laboratory Results
12/24/24 12/24/24
06:05 11:00
WBC 40.6 H*
Hgb 7.8 L
Hct 22.6 L
Plt Count 269
Sodium 126 L Pending
Potassium 3.7 Pending
Chloride 95 L Pending
Carbon Dioxide 27 Pending
BUN 10 Pending
Creatinine 0.7 Pending
Glucose 239 H Pending
Calcium 7.6 L Pending
Vital Signs:
Vital Signs
Temp Pulse Resp BP Pulse Ox
98.6 F 101 18 131/72 97
12/24/24 07:00 12/24/24 08:07 12/24/24 07:00 12/24/24 08:07 12/24/24 08:05
Review of Systems
-
Unable to obtain full review of systems at this time due to: Dementia and Acuity
Physical Exam
-
General: Well Developed, Well Nourished, No Apparent Distress and Appears Chronically Ill
HEENT: Normocephalic, Atraumatic, Moist Mucous Membranes and Anicteric
Respiratory: Clear to Auscultation and Non Labored Respirations; Negative Accessory Resp Muscle Use
Cardiac: Regular Rhythm and S1/S2; Negative Murmur, Rub or Gallop
GI: Soft, Nontender, Nondistended, Normal Bowel Sounds and Peg Tube
Musculoskeletal: No Clubbing, No Cyanosis and No Edema
Skin: Warm and Dry; Negative Rash
Neuro: AO x 3, No Sensory Deficits and Other (Flaccid paresis to RUE and RLE, mild improved facial droop); Negative Tremors
Psych: Calm
Data Reviewed
-
Labs: Labs Reviewed by me, Discussed with Nurse, Discussed with Patient and Discussed with Family
[2024-12-24 11:14] LABS: Blood Urea Nitrogen 9 mg/dl (9-20); Calcium 7.7 mg/dl (8.4-10.2); Carbon Dioxide 28 mmol/L (22-30); Chloride 97 mmol/L (98-107); Estimated Creatinine Clearance 67 ml/min; Glucose 217 mg/dl (70-99); Potassium 3.7 mmol/L (3.5-5.1); Sodium 129 mmol/L (135-145); eGFR > 60.00
[2024-12-24 11:52] LABS: Glucose - Point of Care 253 mg/dl (70-99)
--- NOTE | 2024-12-24 14:22 | CM ---
[facility] no beds
Spoke with Inna at [phone] she offered bed. NPI are [id number] and NPI dr Hart .
is in agreement with [facility].
Pt on goal rate for tube feedings via Peg tube.
[facility] [facility] [phone] spoke with Augustine he said computer system is down. Augustine suggested fax clinical to [phone] which was faxed.
Pt will need ambulance transport
[facility] address: [address] , [facility] [address]
report [phone]
fax [phone]
[facility] after auth obtained
[2024-12-24 15:00] VITALS: BP 119/58
[2024-12-24] MEDS: LOVENOX 40 MG SC (17:11)
[2024-12-24] MEDS: ZETIA 10 MG TUBE (17:12)
[2024-12-24] MEDS: LIPITOR 40 MG TUBE (17:12)
[2024-12-24] MEDS: COZAAR 100 MG TUBE (17:12)
[2024-12-24] MEDS: NORVASC 10 MG TUBE (17:12)
--- NOTE | 2024-12-24 17:30 | PTCARENOTE ---
Pt drowsy but arousable; opens eyes to verbal stimuli. Moves LUE/LLE randomly; no movement RUE; occ slight withdrawal from plantar stimuli to Rt foot. Follows simple commands at times; occ verbalizes 'yes' and 'no ' to questions; other attempts at
speech unintelligible. NIHSS 23. VSS. On room air- pulse ox 97%, no SOB noted. Pt with noisy respirations at times/mouth- breather. Suctioned orally w/Yankauer for small amts clear mucus. Abd soft, rounded, josephine PEG tube feeding of Jevity 1.5 @
55 ml/hr with 45 ml/hr H2O flush; aspiration prec maintained; HOB elevated 45 degrees. Incont large amts neelam urine. Resting quietly at present. at bedside. Will continue to monitor.
[2024-12-24 18:28] LABS: Glucose - Point of Care 236 mg/dl (70-99)
[2024-12-24] MEDS: NOVOLOG FLEXPEN-LOW RESISTANCE 2 UNITS SC ×2 (18:28→23:50)
[2024-12-24 20:36] LABS: Glucose - Point of Care 191 mg/dl (70-99)
[2024-12-24] MEDS: LANTUS 0.24 UNITS SC (21:24)
[2024-12-24 23:08] VITALS: BP 147/66
[2024-12-24 23:50] LABS: Glucose - Point of Care 208 mg/dl (70-99)
[2024-12-25 04:08] LABS: Glucose - Point of Care 189 mg/dl (70-99)
[2024-12-25] MEDS: SYNTHROID 150 MCG TUBE (05:38)
[2024-12-25] MEDS: TYLENOL ORAL SOLUTION 650 MG TUBE ×2 (05:54→11:18)
[2024-12-25 06:10] LABS: Glucose - Point of Care 223 mg/dl (70-99)
[2024-12-25] MEDS: NOVOLOG FLEXPEN-LOW RESISTANCE 2 UNITS SC ×2 (06:23→18:10)
[2024-12-25] MEDS: NOVOLOG FLEXPEN 18 UNITS SC (06:24)
[2024-12-25 07:00] VITALS: BP 130/70
--- NOTE | 2024-12-25 08:20 | W.PN.HOSP.TC ---
Today's Communication/Plan
-
Titrate free water flushes
Monitor temperature curve
Dispo planning
Assessment / Plan
Assessment / Plan
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
#Cerebrovascular disease
- Suspect ASCVD driven event within the left Jim-cerebrum/basal ganglia/thalamus with symptoms and Hx
- Has extensive ASCVD history, on DAPT and statin for obstructive CAD s/p percutaneous coronary intervention x6
- Initial CT scan without any acute findings, CTA showed carotid stenosis and bilateral M1-2 stenosis
- Repeat CT head showed signs of left basal ganglia and swan radiata infarct, deficits worsened
- Repeat CT, demonstrates signs of evolving infarct, no ICH seen; repeat on 12/19 without change
- Was unable to tolerate MRI here due to agitation, inability to follow direction
- NIHSS waxes and wanes, generally improved
Plan
- Continue DAPT with aspirin and Plavix via PEG tube due to history of multiple PCI
- Continue high intensity statin via PEG with LDL goal <70
- BP goal normotension, blood glucose control
- Monitor neurochecks and NIHSS
- Monitor tele
#Hyponatremia
- Previously with hypernatremia, corrected after increased free water flush to 60 mL/h
- Most recent labs with serum sodium down from 134-126; ordered repeat BMP which is pending
- Decrease free water flushes to 45 mL/h for now and continue to trend BMP
- If continuing to worsen check urine osmolality, urine sodium, serum osmolality
- Will need to have labs roughly every 2-3 days at rehab to titrate feeds and free water flush
#Fever x 1
- Temperature of 101 �F yesterday; highly likely due to leukocyte dysregulation from CML versus aspiration
- As of this morning he is hemodynamically adequate, without hypoxemia or recurrence of fever
- Very low suspicion for active infection at this time, has been stable off of antibiotics here
- Will continue to monitor temperature curve
#Oropharyngeal dysphagia
#Aspiration
- Likely related to recent suspected CVA, evaluated by PRINTING SCREEN ASSEMBLER
- GI consulted, s/p PEG tube on 12/15; on Jevity 1.5 at 55 mL/h and 60 mL H2O per hour
- Will discuss optimization of tube feeds prior to discharge today with nutrition
#Peptic ulcer disease
#H/O anemia of chronic disease
- Suspect stress-induced gastric ulcer; EGD here with hiatal hernia and gastric ulcer.
- S/p IV PPI drip, now on twice daily IV PPI with stable hemoglobin
- Plan for 1-2 months of twice daily PPI via PEG at DC
- Avoid NSAIDs as able
#Anion gap metabolic acidosis
- CO2 on morning BMP was 8, VBG with pH 7.27 and low pCO2, AG 20
- Suspect this is associated with poor intake, starvation ketosis
- Resolved with bicarbonate drip and then initiation of tube feeds
#Leukocytosis
#CML
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
- Antibiotics deferred on arrival, no obvious infectious findings at this time
- Differential without mention of basophils, would expect these to be elevated
#CAD s/p PCI x 6
#Dyslipidemia
- Home regimen includes DAPT with aspirin and Plavix, metoprolol tartrate twice daily
- Not currently on statin therapy as last lipid panel with LDL near 39, is on ezetimibe
- Follow-up repeat lipid panel as above, consider starting statin
- No signs of ACS at this time
#NIDDM
- A1c 8.7%; no known microvascular disease though likely associated with PAD
- Home regimen includes metformin and saxagliptin; Was transitioned to ISS with Accu-Cheks while inpatient.
- With major stroke and deficits have transition to insulin regimen; diabetic nurse practitioner consulted
- Continue with glargine insulin 22 units twice daily and aspart insulin 18 units every 6 hours with ISS
#Iatrogenic hypothyroidism
#S/P thyroidectomy
- Home regimen includes levothyroxine 150 mcg daily
- No signs or symptoms of thyroid dysfunction at this time
#Primary hypertension
- Home regimen includes amlodipine, metoprolol tartrate, losartan
- Home regimen has been converted from oral to via PEG
- Blood pressure goal normotension
#GERD
- No known history of Suarez's esophagus or erosive disease
- Not currently on PPI or antihistamine at time of admission
- Started PPI as above for stress-induced ulcer
#Dementia
#Behavioral disturbances
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
- Developed agitation for which as needed IM Haldol was ordered
- Continue to monitor, proceed with delirium precautions.
- Avoid benzodiazepines for delirium
Diet: Jevity 1.5 at 55 mL/h with 45 mL H2O flush per hour
Thromboprophylaxis: SQ Lovenox
CODE STATUS: Full code
Disposition: Pending insurance authorization for SNF
Discussed with patient's
Anticipated Discharge: Today
Subjective/Interval History
-
Date of Service: December 25, 2024
Seen and examined at the bedside. No acute events reported overnight. AFVSS this morning
Serum sodium stable at 127, trending sodium to titrate free water flushes
ROS limited by acuity and dementia
Objective Data
-
Labs:
Laboratory Results
12/25/24
07:20
WBC Pending
Hgb Pending
Hct Pending
Plt Count Pending
Sodium Pending
Potassium Pending
Chloride Pending
Carbon Dioxide Pending
BUN Pending
Creatinine Pending
Glucose Pending
Calcium Pending
Vital Signs:
Vital Signs
Temp Pulse Resp BP Pulse Ox
98.2 F 104 16 130/70 98
12/25/24 07:00 12/25/24 07:00 12/25/24 07:00 12/25/24 07:00 12/25/24 07:00
I&O
12/24/24 12/25/24 12/26/24
06:59 06:59 06:59
Intake Total 1659
Balance 1659
Review of Systems
-
Unable to obtain full review of systems at this time due to: Dementia and Acuity
Physical Exam
-
General: Well Developed, Well Nourished and Appears Chronically Ill
HEENT: Normocephalic, Atraumatic, Moist Mucous Membranes and Anicteric
Respiratory: Clear to Auscultation and Non Labored Respirations; Negative Accessory Resp Muscle Use
Cardiac: Regular Rhythm and S1/S2; Negative Murmur, Rub or Gallop
GI: Soft, Nontender, Nondistended and Normal Bowel Sounds
Musculoskeletal: No Clubbing, No Cyanosis and No Edema
Skin: Warm and Dry; Negative Rash
Neuro: Awake, Alert, Oriented and Other (Right-sided hemiparesis, facial droop)
Psych: Calm
--- NOTE | 2024-12-25 08:22 | PN.DE.MGMTRT ---
Insulin Management
- -
12/25/2024: Diabetes Management Followup
84 year old male admitted 12/09 with Acute CVA of the left basal ganglia and swan radiata. Diabetes Management consult 12/16. PMH: CAD s/p PCI x6, DM2, hypothyroidism, HTN, CML, dementia and T2DM. Patient was admitted with right-sided weakness,
workup revealing severe narrowing in right P2 segment, treating as acute CVA. Prior to admission was taking Saxagliptin 5mg daily, Metformin 500 mg in AM and 1000 mg in PM. states patient was not testing his blood sugars or adhering to any
specific diet. A1C 8.7%, Cr 0.7, eGFR >60
Patient awake, non-verbal on exam, noted for right sided weakness and facial droop, unable to discuss diabetes care plan. at bedside, very supportive.
Patient was noted for Oropharyngeal dysphagia with concerns of aspirating thin liquids. He underwent VSE and was noted for aspiration to all consistencies.
12/15 s/p PEG tube placement with initiation of tube feeds.
Lantus was changed to BID and increased dose to 22 units. Glucose markedly improved.
12/24 Fasting glucose is 258. Tube feeds continue @ 55 ml/hr. Received Lantus 22 units in AM, increased HS lantus to 24 units as fasting glucose has been > 200 2 consecutive days. Received NovoLog 18 units Q6 hrs. Cont low corrective insulin Q6
hrs.
12/25 4AM glucose 189, fasting glucose 223. Q6 hour glucose > 200, will increase Q 6 hour novolog to 20 units with low corrective insulin. Will continue lantus 22 units in AM and 24 unit @ hs.
Anticipate higher insulin requirements while on TF.
Discussed with Nurse. Cont to follow
Diabetes History
- -
Type of Diabetes: 2 requiring insulin
Pre-Admission Diabetes Regimen
12/24/24
10:38
Creatinine 0.7
Lab Results
Hemoglobin A1c 8.7 % (4.0-5.6) H 12/10/24 06:38
Insulin Pump Settings
IP Diabetes Regimen
12/24/24 12/24/24 12/24/24
10:38 11:50 18:26
Glucose 217 H
POC Glucose 253 H 236 H
12/24/24 12/24/24 12/25/24
20:35 23:48 04:07
Glucose
POC Glucose 191 H 208 H 189 H
12/25/24
06:09
Glucose
POC Glucose 223 H
Patient Education
[2024-12-25 08:27] LABS: Hematocrit 22.1 % (39.0-52.0); Hemoglobin 7.4 g/dL (13.0-18.0); Mean Corp Hgb Conc. 33.5 g/dL (33.0-37.0); Mean Corpuscular Volume 90.2 fL (80.0-94.0); Platelet Count 295 10^3/uL (130-400); Red Cell Dist. Width 15.2 % (11.5-14.5)
[2024-12-25 08:31] LABS: Blood Urea Nitrogen 11 mg/dl (9-20); Calcium 7.9 mg/dl (8.4-10.2); Carbon Dioxide 26 mmol/L (22-30); Chloride 95 mmol/L (98-107); Estimated Creatinine Clearance 67 ml/min; Glucose 165 mg/dl (70-99); Potassium 3.7 mmol/L (3.5-5.1); Sodium 127 mmol/L (135-145); eGFR > 60.00
[2024-12-25] MEDS: DESENEX/MITRAZOL/ZEASORB 1 APPLIC TOPICAL (09:16)
[2024-12-25] MEDS: FERROUS SULFATE ORAL LIQUID 300 MG TUBE (09:17)
[2024-12-25] MEDS: ROBITUSSIN 200 MG TUBE ×3 (09:17→18:12)
[2024-12-25] MEDS: VITAMIN D3 (cholecalciferol) 125 MCG TUBE (09:18)
[2024-12-25] MEDS: FOLVITE 1 MG TUBE (09:18)
[2024-12-25] MEDS: PROTONIX IV 40 MG IV (09:18)
[2024-12-25] MEDS: VITAMIN C 1000 MG TUBE (09:18)
[2024-12-25] MEDS: PLAVIX 75 MG TUBE (09:18)
[2024-12-25] MEDS: LOPRESSOR 100 MG TUBE (09:18)
[2024-12-25] MEDS: NSS (PRESERVATIVE FREE) 10 ML IV (09:18)
[2024-12-25] MEDS: MIRALAX TUBE (09:19)
[2024-12-25] MEDS: LANTUS 0.22 UNITS SC (09:19)
[2024-12-25 09:22] LABS: Glucose - Point of Care 171 mg/dl (70-99)
[2024-12-25 10:46] LABS: Absolute Neutrophils -Man Diff 30.8 10^3/uL (1.4-6.5)
[2024-12-25 10:47] LABS: Platelets Checked Yes
[2024-12-25 10:48] LABS: Anisocytosis 1+; Normal RBC Morphology No; Polychromasia Slight
[2024-12-25 10:49] LABS: Hypochromasia 1+; Total Cells Counted 100
--- NOTE | 2024-12-25 11:21 | CM ---
Addendum entered by Zoe Queen RN 12/25/24 15:06:
Spoke with Nathalie from [facility] gave auth from 12/25/24 to 12/27/24 NRD 12/29/24 call Nathalie at [phone] fax [phone]
Auth # [id number]. Inna Amandacatherine Dameon called information given . Medical nec form completed for ambulance.
IMM reviewed with signed on chart.
[facility]
report [phone]
fax [phone]
Original Note:
Inna at [phone] she offered bed. NPI are [id number] and NPI Dr Hart .
is in agreement with Marie.
Pt on goal rate for tube feedings via Peg tube.
[facility] is nor provider for this Patient.Several calls made Called [phone] spoke with Farida Perez.
Clinical provided Pending auth [id number] Clinical uploaded to [email or web address]
Pt will need ambulance transport. Medical nec form completed
[facility] address: [address] , [facility] [address]
report [phone]
fax [phone]
[facility] after auth obtained
[2024-12-25 11:59] LABS: Glucose - Point of Care 255 mg/dl (70-99)
[2024-12-25] MEDS: NOVOLOG FLEXPEN 20 UNITS SC ×2 (13:24→18:11)
[2024-12-25] MEDS: NOVOLOG FLEXPEN-LOW RESISTANCE 3 UNITS SC (13:24)
[2024-12-25 14:41] LABS: Glucose - Point of Care 288 mg/dl (70-99)
[2024-12-25 14:47] VITALS: BP 113/46
[2024-12-25 17:11] LABS: Urine Character Clear (Clear)
[2024-12-25 17:19] LABS: Urine Squamous Cell 0-2 /LPF (Few)
[2024-12-25 17:20] LABS: Urine Red Blood Cell 0-2 /HPF (0-2)
[2024-12-25] MEDS: LOVENOX 40 MG SC (17:32)
[2024-12-25] MEDS: NORVASC 10 MG TUBE (17:34)
[2024-12-25] MEDS: LIPITOR 40 MG TUBE (17:34)
[2024-12-25] MEDS: ZETIA 10 MG TUBE (17:34)
[2024-12-25] MEDS: COZAAR 100 MG TUBE (17:34)
[2024-12-25 17:50] LABS: Glucose - Point of Care 203 mg/dl (70-99)
--- NOTE | 2024-12-26 13:09 | W.DCSUMMARY ---
Discharge Summary
Discharge Data
Date of Admission: 12/09/24
Date of Discharge: 12/25/24
Total time spent discharging patient (in min): 43
-
Pending Results: No
Hospital Course
Discharging provider: Dev Madison DO
Discharging disposition: SNF
Primary discharge diagnoses:
Acute CVA of left basal ganglia/swan radiata
Right sided hemiparesis
Oropharyngeal dysphagia s/p PEG
Cerebrovascular disease
Hyponatremia
Solitary fever episode with negative infectious workup
AGMA from starvation ketosis
IDDM
Peptic ulcer disease
Schatzki's ring
Anemia
Chronic discharge diagnoses:
CML with leukocytosis
CAD s/p PCI x 6
Dyslipidemia
NIDDM
Iatrogenic hypothyroidism
Primary hypertension
GERD
Dementia
Hospital course:
84-year-old male that presented to the hospital with facial droop and right-sided weakness that started 3 days prior to his arrival while at a family gathering which was initially noted at his foot 'dragging'. Was brought into the hospital and
initial CT/CTA demonstrated signs of multifocal cerebrovascular disease though no acute findings at that time. Patient was ordered MRI though in the context of his dementia and acuity, his behavioral status did not tolerate the MRI process and it
was not able to be obtained. Repeat CT scans demonstrated acute CVA within the left basal ganglia and swan radiata. Further CT scans demonstrated signs of evolution though no hemorrhagic conversion. Was treated with dual antiplatelet therapy
with aspirin and Plavix as well as high intensity statin. Blood pressure was initially treated for permissive hypertension though eventually treated for normotension. Had significant functional deficits that did not improve significantly. Was
evaluated by gastroenterology and surgery for PEG tube placement and started on tube feeding with Jevity 1.5 and free water flushes of 40 mL/h. Endoscopy during PEG tube placement did show signs of peptic ulcer disease and a Schatzki's ring, was
started on twice daily PPI. No signs of upper GI bleeding here. Did have sodium derangements associated with titrations of his free water flushes. Ultimately was seen by physical therapy and recommended for rehab which was arranged by case
management. She did have ongoing rehabilitation for physical strengthening. Is oral antihyperglycemics were transition to insulin regimen while on tube feeds.
Consultants:
Neurology -- Asiya Ponce MD
Exhibits Coordinator -- Tiara Jones DO
Diabetes TRADES HELPER -- Vira Basurto
Pertinent imaging findings:
CTA head and neck/CT head (12/09/2024)
IMPRESSION: CT the Head without acute intracranial abnormality. Atherosclerotic changes of the carotid arterial system bilaterally without hemodynamically significant stenosis of the proximal internal carotid arteries bilaterally. No findings to
suggest internal carotid artery dissection bilaterally. Dominant left vertebral artery. Right vertebral artery terminating in the PICA, congenital variants of normal. Atherosclerotic narrowing of the bilateral M1 and M2 junctions and severe
narrowing of the right P2 segment.
CT head without IV contrast (12/20/2024)
IMPRESSION: CT findings are suspicious for a developing area of acute or subacute ischemia in the left periventricular swan radiata/superior margin of the left basal ganglia.
CT head without contrast (12/12/2024)
IMPRESSION: There is similar appearance of the hypodensity within the left swan radiata for which a subacute infarction is possible. No evidence of acute intracranial hemorrhage
CT head without contrast (12/13/2024)
IMPRESSION: No acute intracranial hemorrhage. Persistent area of decreased attenuation in the left swan radiata suspicious for evolving subacute nonhemorrhagic infarct. Findings compatible with diffuse cortical atrophy with nonspecific white
matter changes as described above.
Procedures:
Upper GI endoscopy (12/15/2024)
Impression:
- Small hiatal hernia.
- Non-obstructing and low-grade of narrowing Schatzki ring. Clips were placed. Clip beam sealer: [id number].
- With placement of the PEG, a small mucosal tear was found within the schatzki ring, which was not present on initial intubation
- Non-bleeding gastric ulcers with a clean ulcer base (Pito Class III).
- A PEG placement was successfully completed.
- Non-bleeding duodenal ulcer. Injected. Treated with bipolar cautery.
- Non-bleeding duodenal ulcers with a clean ulcer base (Pito Class III).
- No specimens collected.
PEG tube placement (12/15/2024)
Attending physician: Dr. Mustapha Billings
Endoscopist: Dr. Tiara Jones
Findings: Multiple ulcers noted in the duodenum, the largest was proximally in D1/D2 with a fairly large clot which was injected and cauterized with gold probe. The patient also was noted to have a distal Schatzki's ring which tore slightly with
passage of the PEG tube bumper, this was clipped closed.
Follow-up:
Family doctor within 1 week
Follow-up visit scheduled with junior systems analyst
Discharge Plan
-
Patient Disposition: Skilled Nursing/SNF
Discharge Diagnosis/Procedures: Acute CVA of left basal ganglia/swan radiata
Right hemiparesis
Oropharyngeal dysphagia
S/p PEG tube placed
Starvation ketosis
Cerebrovascular disease
NIDDM
CAD s/p PCI x 6
GERD
Condition: Serious
Diet: Other diet
Additional Diets: Tube feeds via PEG tube placed 12/15, rate 55 mL/h of Jevity 1.5.
40 mL/h free water flushes
Activity: With assistance and As tolerated
Driving Restrictions: No driving
Bathing Restrictions: None
Blood Work: BMP every 2 to 3 days for titration of hourly free water flushes
magnesium level, phosphorus level, CBC with differential 1 week after discharge from hospital
Other Services: PT, OT and ST
Referrals:
Hector Ivy MD [Family Provider, [facility]] - in less than 1 week
Tiara Jones DO [Active, Gastroenterology]
Referral Note: follow up 6 weeks to review for repeat EGD. Call GI office is any question or problems with peg tube.
Additional Discharge Medication Instructions: Previous home oral medications converted to PEG tube route of administration
Insulin regimen: Insulin glargine 22 units AM and 24 units PM, insulin aspart 20 units every 6 hours, sliding scale coverage
Discontinued oral antihyperglycemics: Metformin, saxagliptin
Pantoprazole 40 mg BID
Prescriptions:
New
amlodipine 10 mg Tablet
10 mg feeding tube QPM 30 Days Qty: 30 0RF
aspirin 81 mg Tablet,Chewable
81 mg feeding tube DAILY 30 Days Qty: 30 0RF
clopidogrel 75 mg Tablet
75 mg feeding tube DAILY 30 Days Qty: 30 0RF
ezetimibe 10 mg Tablet
10 mg feeding tube QPM 30 Days Qty: 30 0RF
folic acid 1 mg Tablet
1 mg feeding tube BID 30 Days Qty: 60 0RF
ferrous sulfate 300 mg (60 mg iron)/5 mL Liquid
300 mg feeding tube DAILY 30 Days Qty: 150 0RF
levothyroxine 150 mcg Tablet
150 mcg feeding tube DAILY@0600 30 Days Qty: 30 0RF
atorvastatin 40 mg Tablet
40 mg feeding tube QPM 30 Days Qty: 30 0RF
metoprolol tartrate 100 mg Tablet
100 mg feeding tube DAILY Qty: 30 0RF
losartan 100 mg Tablet
100 mg feeding tube QPM 30 Days Qty: 30 0RF
polyethylene glycol 3350 17 gram Powder In Packet
17 g feeding tube DAILY 30 Days Qty: 30 0RF
esomeprazole magnesium [address] for susp in packet
40 mg feeding tube BID 30 Days Qty: 30 0RF
quetiapine 25 mg Tablet
12.5 mg feeding tube BIDPRN PRN (Reason: agitation) 30 Days Qty: 60 0RF
ascorbic acid (vitamin C) [Vitamin C] 500 mg Tablet
1,000 mg feeding tube DAILY 30 Days Qty: 60 0RF
cholecalciferol (vitamin D3) 125 mcg (5,000 unit) Tablet
125 mcg feeding tube DAILY 30 Days Qty: 30 0RF
Insulin Glargine Lantus [Lantus] 22 UNITS
Subcutaneous Insulin Syringe [Syringe-Insulin] 0 UNIT
As Directed mls/hr SC DAILY@0800
Ordered By: Dev Madison DO
Last Taken: 12/25/24 09:19 0.22 mls
Insulin Glargine Lantus [Lantus] 24 UNITS
Subcutaneous Insulin Syringe [Syringe-Insulin] 0 UNIT
As Directed mls/hr SC HS
Ordered By: Dev Madison DO
Last Taken: 12/24/24 21:24 0.24 mls
insulin aspart U-100 100 unit/mL (3 mL) Insulin Pen
20 unit SC Q6 Qty: 15 0RF
insulin aspart U-100 [Novolog PenFill U-100 Insulin] 100 unit/mL cartridge
See Rx Instructions .ROUTE .COMPLEX Qty: 15 0RF
Rx Instructions:
>70 Hold insulin, hypoglycemia protocol.
70-150 0U
151-174 2U
175-199 4U
200-224 6U
225-249 8U
250-274 10U
275-299 12U
>300 14U and call the provider.
Discontinued
ascorbic acid (vitamin C) [Vitamin C] 1,000 mg Tablet
1 g PO DAILY
metoprolol tartrate 100 mg Tablet
100 mg PO DAILY
clopidogrel 75 mg Tablet
75 mg PO DAILY
amlodipine 10 mg Tablet
10 mg PO QPM
folic acid 1 mg Tablet
1 mg PO BID
losartan 100 mg Tablet
100 mg PO QPM
metformin 500 mg Tablet Extended Release 24 Hr
500 mg PO DAILY
metformin 500 mg Tablet Extended Release 24hr
1,000 mg PO QPM
Vitamin B-12
5 g PO QPM
nitroglycerin 0.4 mg tablet, sublingual
0.4 mg sublingual [id number] PRN (Reason: chest pain) Qty: 25 2RF
aspirin 81 mg Tablet,Chewable
81 mg PO DAILY Qty: 30 0RF
ferrous sulfate [Iron (ferrous sulfate)] 325 mg (65 mg iron) Tablet
65 mg PO DAILY
levothyroxine 150 mcg Tablet
150 mcg PO DAILY
ezetimibe 10 mg Tablet
10 mg PO QPM
cholecalciferol (vitamin D3) [Vitamin D3] 125 mcg (5,000 unit) Tablet
125 mcg PO DAILY
saxagliptin 5 mg Tablet
5 mg PO DAILY
Discharge Orders:
Discharge Patient (As Directed); Ordered 12/25/24
Ordered By: Dev Madison
Discharge Date and Time
Discharge Date/Time: 12/25/24 19:08
Print Language: BURKINAN
== END 2024-12-25 19:08 | DRG 65 ==
LOC: 4 EAST ACU 04:35
PROVIDERS: Internal Medicine; Nurse Practitioner Family; Physician Assistant; Registered Nurse Critical Care Medicine; Surgery; ADMITTING PHYSICIAN Internal Medicine; ATTENDING PHYSICIAN Internal Medicine; CONSULT PHYSICIAN Internal Medicine; CONSULT PHYSICIAN Physical Medicine & Rehabilitation; CONSULT PHYSICIAN Psychiatry & Neurology Neurology; EMERGENCY PHYSICIAN Student in an Organized Health Care Education/Training Program; FAMILY PHYSICIAN Family Medicine
PROC: 0DH63UZ Insertion of Feeding Device into Stomach, Percutaneous Approach (ICD-10-PCS; 2024-12-15)
DX: I63.9 Cerebral infarction, unspecified (principal); C92.10 Chronic myeloid leukemia, BCR/ABL-positive, not having achieved remission; F02.84 Dementia in other diseases classified elsewhere, unspecified severity, with anxiety; G81.91 Hemiplegia, unspecified affecting right dominant side; F02.811 Dementia in other diseases classified elsewhere, unspecified severity, with agitation; F05 Delirium due to known physiological condition; E87.20 Acidosis, unspecified; E87.1 Hypo-osmolality and hyponatremia; E87.0 Hyperosmolality and hypernatremia; G30.1 Alzheimer's disease with late onset; R41.82 Altered mental status, unspecified; R47.01 Aphasia; I10 Essential (primary) hypertension; I25.10 Atherosclerotic heart disease of native coronary artery without angina pectoris; E11.9 Type 2 diabetes mellitus without complications; R29.810 Facial weakness; K21.9 Gastro-esophageal reflux disease without esophagitis; E89.0 Postprocedural hypothyroidism; K22.70 Barrett's esophagus without dysplasia; E78.00 Pure hypercholesterolemia, unspecified; R63.30 Feeding difficulties, unspecified; K44.9 Diaphragmatic hernia without obstruction or gangrene; K22.2 Esophageal obstruction; R13.12 Dysphagia, oropharyngeal phase; H54.62 Unqualified visual loss, left eye, normal vision right eye; K25.7 Chronic gastric ulcer without hemorrhage or perforation; K26.9 Duodenal ulcer, unspecified as acute or chronic, without hemorrhage or perforation; D63.8 Anemia in other chronic diseases classified elsewhere; R47.1 Dysarthria and anarthria; E87.6 Hypokalemia; M19.90 Unspecified osteoarthritis, unspecified site; Z74.09 Other reduced mobility; Z96.653 Presence of artificial knee joint, bilateral; Z95.5 Presence of coronary angioplasty implant and graft; Z79.02 Long term (current) use of antithrombotics/antiplatelets; Z88.5 Allergy status to narcotic agent; Z88.8 Allergy status to other drugs, medicaments and biological substances; Z79.890 Hormone replacement therapy; Z79.84 Long term (current) use of oral hypoglycemic drugs; Z79.899 Other long term (current) drug therapy; Z79.82 Long term (current) use of aspirin; Z86.0101 Personal history of adenomatous and serrated colon polyps; Z91.81 History of falling; Z87.19 Personal history of other diseases of the digestive system
CPT/HCPCS: 70450; 70496; 70498; 71045; 74230; 80048; 80053; 80061; 81003; 81015; 82607; 82728; 82746; 82805; 82962; 83036; 83735; 84100; 84295; 84439; 84443; 84484; 85014; 85018; 85025; 85027; 85576; 85610; 85730; 87086; 87147; 92507; 92523; 92526; 92610; 92611; 93005; 93306; 97110; 97112; 97129; 97163; 97167; 97530; 97535; 99285; Q9967